=== PATIENT | female | born 1975 ===

== ENCOUNTER 2019-12-16 08:02 | Outpatient (REF) | payer OTHER, SELFPAY ==
--- NOTE | 2019-12-16 | US_ITS ---
EXAMINATION: US THYROID CLINICAL INFORMATION: Multinodular goiter. COMPARISON: Ultrasound thyroid soft tissue dated 11/12/2018 TECHNIQUE: Linear transducer barry-scale and color Doppler examination with attention to the region of the thyroid. FINDINGS: SIZE: Measurements of the thyroid lobes and nodules are given in sagittal, anteroposterior and transverse dimensions respectively. Right Thyroid Lobe: 5.6 x 2.2 x 2.0 cm, volume 12.5 mL. Previously 5.4 x 2.3 x 2.2 cm, volume 14.3 mL. Parenchyma: The gland echotexture is homogeneous. Thyroid vascularity is normal. Left Thyroid Lobe: 5.7 x 1.8 x 2.3 cm, volume 12.7 mL. Previously 5.7 x 2.1 x 2.5 cm, volume 15.7 mL. Parenchyma: The gland echotexture is homogeneous. Thyroid vascularity is normal. Isthmus: 0.6 cm in maximum AP dimension. Previously 0.60 cm. RIGHT THYROID LOBE: There are 3 nodules seen. 1. Location: Upper. Size: 0.2 x 0.1 x 0.2 cm. Previous: Not seen. Nodule characteristics: Cyst. 2. Location: Upper. Size: 0.3 x 0.3 x 0.3 cm. Previous: 0.4 x 0.3 x 0.3 cm. Nodule characteristics: Mild hypoechoic, ill-defined margins, no color flow. 3. Location: Upper to mid medial. Size: 0.5 x 0.3 x 0.4 cm. Previous: 0.5 x 0.3 x 0.4 cm. Nodule characteristics: Isoechoic/mild hypoechoic, no definite color flow. ISTHMUS: No nodules. LEFT THYROID LOBE: There are 2 nodules seen. 1. Location: Mid. Size: 0.2 x 0.1 x 0.2 cm. Previous: Not seen. Nodule characteristics: Cyst. 2. Location: Lower. Size: 0.2 x 0.2 x 0.2 cm. Previous: Not seen. Nodule characteristics: Mild hypoechoic, circumscribed, no color flow. NODES: No lymphadenopathy is seen in the tissue surrounding the thyroid gland. IMPRESSION: 1. Thyroid normal in size, borderline decreased in size from prior exam 11/12/2018. 2. A few scattered tiny benign-appearing nodules all under 1 cm. No adenopathy demonstrated.
== END 2019-12-16 08:03 | disposition home or self-care (01) ==
LOC: HO.US 08:02
PROVIDERS: PCP Internal Medicine; Visit Provider Internal Medicine
DX: E04.2 Nontoxic multinodular goiter (principal)
CPT/HCPCS: 76536

== ENCOUNTER 2020-04-23 07:18 | Outpatient (REF) | payer OTHER, SELFPAY ==
[2020-04-23 11:10] LABS: MANUAL DIFF FLAG NO
[2020-04-23 11:25] LABS: Basophils Percent Auto 0.7 % (0-2); Eosinophils Absolute Auto 0.1 X10*3/uL (0.0-0.4); Eosinophils Percent Auto 1.7 % (0-4); Hematocrit 39.7 % (37-47); Hemoglobin 12.9 g/dl (12.0-16.0); Imm Gran Abs Auto 0.01 X10*3/uL (0.00-0.03); Imm Gran Pct Auto 0.2 % (0.0-0.4); Lymphocytes Absolute Auto 1.6 X10*3/uL (1.2-4.9); Lymphocytes Percent Auto 26.7 % (20-40); Mean Corpuscular HGB Conc 32.5 g/dl (31.0-35.0); Mean Corpuscular Hemoglobin 29.3 pg (27.0-33.0); Mean Corpuscular Volume 90.2 fL (80-98); Mean Platelet Volume 11.8 fL (9.4-12.3); Monocytes Absolute Auto 0.5 X10*3/uL (0.1-1.2); Monocytes Percent Auto 8.2 % (2-11); Neutrophils Absolute Auto 3.7 X10*3/uL (2.0-8.3); Neutrophils Percent Auto 62.5 % (45-73); Platelet Count 238 X10*3/uL (160-400); Red Cell Distribution Width 11.9 % (11.0-16.0); White Blood Count 5.9 X10*3/uL (4.8-10.8)
[2020-04-23 12:06] LABS: Anion Gap 12 (12-20); Blood Urea Nitrogen 14 mg/dL (9-16); Calcium 8.5 mg/dL (8.4-10.2); Carbon Dioxide 26 mmol/L (22-29); Chloride 106 mmol/L (96-108); Cholesterol 180 mg/dL; Estimated Glomerular Filt Rate > 60; Glucose Fasting 96 mg/dL (60-99); HDL Cholesterol 43 mg/dL; LDL Cholesterol Calculated 101 mg/dl; Potassium 3.9 mmol/L (3.3-5.1); Sodium 140 mmol/L (135-145); Triglycerides 180 mg/dL
[2020-04-23 12:10] LABS: Free T4 (Free Thyroxine) 1.12 ng/dL (0.71-1.85); Thyroid Stimulating Hormone 0.45 uIU/mL (0.32-4.0); Vitamin D 25-OH Total 18.2 ng/mL (>30)
== END 2020-04-23 07:19 | disposition home or self-care (01) ==
LOC: HO.HMGCLDS 07:18
PROVIDERS: PCP Internal Medicine; Visit Provider Internal Medicine
DX: Z00.01 Encounter for general adult medical examination with abnormal findings (principal); I10 Essential (primary) hypertension; E04.2 Nontoxic multinodular goiter; E03.9 Hypothyroidism, unspecified; E55.9 Vitamin D deficiency, unspecified
CPT/HCPCS: 36415; 80048; 80061; 82306; 84439; 84443; 85025

== ENCOUNTER → 2020-05-17 07:53 | Outpatient (BNVA) | payer OTHER, SELFPAY | PROVIDERS: PCP Internal Medicine; Referring Provider Internal Medicine; Visit Provider Internal Medicine ==

== ENCOUNTER 2020-10-29 07:45 | Outpatient (REF) | payer OTHER, SELFPAY ==
[2020-10-29 12:04] LABS: Thyroid Stimulating Hormone 0.97 uIU/mL (0.32-4.0)
== END 2020-10-29 07:46 | disposition home or self-care (01) ==
LOC: HO.HMGCLDS 07:45
PROVIDERS: PCP Internal Medicine; Visit Provider Internal Medicine
DX: E03.9 Hypothyroidism, unspecified (principal); E04.2 Nontoxic multinodular goiter; E55.9 Vitamin D deficiency, unspecified
CPT/HCPCS: 36415; 82306; 84439; 84443

== ENCOUNTER → 2020-11-15 07:50 | Outpatient (BNVA) | payer OTHER, SELFPAY | PROVIDERS: PCP Internal Medicine; Visit Provider Internal Medicine ==

== ENCOUNTER 2021-04-13 10:00 | Outpatient (RCR) | payer OTHER, SELFPAY ==
[2021-01-28 14:09] VITALS: BP 134/74
--- NOTE | 2021-01-28 15:43 | MHC.PT.EP ---
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 Pt has severe rom limitations in left sh/ apprehensive w arom in distal left ue due to pain in left subacromial/ deltoid/parascap mm. At IE today, unable to perform special tests for her shoulder, her cervical rom was wfl and did not influence her left UE sxs- Pt has strength deficits left ue , decr postural awareness, and pain w light touch, palp altough sensation testing was intact. Pt will benefit from a trial of PT to address pain mgmt, soft tissue tension, rom, and funct mob sushma. Frequency and Duration: The patient will be seen 2 x WK x 5 WKS Short Term Goals: Pt'S LEFT SH PAIN DECR TO 2-3/10 IN 2 WKS Pt DEMON INDEP SELF-POSTURAL CORRECTION IN 1 WK Pt DEMON LEFT UE AROM: WFL ELB/ WRIST AROM AND Lt SH AROM TO AT LEAST 90* FLEX/ ABD, IR TO L4/5, ER TOP OF HEAD IN 3 WKS Operations And Maintenance Specialist Goals: Pt INDEP W HEP AND SELF-SX MGMT TECHN IN 5 WKS Pt DEMON RETURN TO REG ADLs , IMPROVED SPADI SCORE BY AT LEAST (124/130 AT EVAL)10 POINTS IN 5 WKS Treatment Plan: Modalities to reduce pain, spasms and effusion. Manual therapy to restore motion and function. Therapeutic exercise to improve strength and flexibility. Neuromuscular re-education for posture and balance. Therapeutic activities to return to functional activities of daily living. Electronically signed by: Mellissa Nieto,PT Please sign and return to therapist. Thank you for your referral.
--- NOTE | 2021-06-09 14:24 | MHC.PT.DC ---
[facility] [place] Office [place] Office [place] Office [address] [facility] [phone] F: [phone] F: [phone] F: [phone] F: [phone] Physical Therapy Discharge Report Diagnosis: PAIN IN LEFT SHOULDER Date of Surgery: N/A Date of Evaluation: 01/28/21 Date of Discharge: 06/09/21 Treatments to Date: 17 Cancellations to Date: No Shows to Date: Discharge Status: Achieved Goals Improved Function Independent with HEP Discharge Summary: Pt PROGRESSED WELL IN PT, SHE MET HER PT GOALS AND FEELS READY FOR D/C W HEP AT THIS TIME. Pt HAS BEEN ABLE TO RESUME REGULAR ADLs AND DEMON IMPROVED POSTURAL AWARENESS AND SELF CORRECTION. Electronically signed by: Mellissa Nieto,PT Please sign and return to therapist. Thank you for your referral.
== END 2021-06-09 14:22 | disposition home or self-care (01) ==
LOC: HO.PT 10:00
PROVIDERS: PCP Internal Medicine; Visit Provider Internal Medicine
DX: M25.512 Pain in left shoulder (principal)
CPT/HCPCS: 97110; 97140; 97163; 97530

== ENCOUNTER 2021-04-21 09:55 | Outpatient (REF) | payer OTHER, SELFPAY ==
[2021-04-21 11:22] LABS: MANUAL DIFF FLAG NO
[2021-04-21 11:29] LABS: Basophils Percent Auto 0.7 % (0-2); Eosinophils Absolute Auto 0.1 X10*3/uL (0.0-0.4); Eosinophils Percent Auto 1.4 % (0-4); Hematocrit 41.6 % (37.0-47.0); Hemoglobin 13.3 g/dl (12.0-16.0); Imm Gran Abs Auto 0.02 X10*3/uL (0.00-0.03); Imm Gran Pct Auto 0.3 % (0.0-0.4); Lymphocytes Absolute Auto 1.8 X10*3/uL (1.2-4.9); Lymphocytes Percent Auto 31.9 % (20-40); Mean Corpuscular Hemoglobin 28.2 pg (27.0-33.0); Mean Corpuscular Volume 88.3 fL (80.0-98.0); Mean Platelet Volume 11.9 fL (9.4-12.3); Monocytes Absolute Auto 0.4 X10*3/uL (0.1-1.2); Monocytes Percent Auto 6.9 % (2-11); Neutrophils Absolute Auto 3.4 x10*3/uL (2.0-8.3); Neutrophils Percent Auto 58.8 % (45-73); Platelet Count 271 X10*3/uL (160-400); Red Blood Count 4.71 X10*6/uL (4.20-5.50); Red Cell Distribution Width 12.1 % (11.0-16.0); White Blood Count 5.8 X10*3/uL (4.8-10.8)
[2021-04-21 11:47] LABS: Alanine Aminotransferase 12 U/L (0-31); Anion Gap 10 (12-20); Aspartate Amino Transferase 17 U/L (5-31); Blood Urea Nitrogen 11 mg/dL (9-16); Calcium 8.9 mg/dL (8.4-10.2); Carbon Dioxide 26 mmol/L (22-29); Chloride 106 mmol/L (96-108); Cholesterol 200 mg/dL; Estimated Glomerular Filt Rate > 60; Glucose Fasting 91 mg/dL (60-99); HDL Cholesterol 48 mg/dL; LDL Cholesterol Calculated 122 mg/dl; Potassium 3.9 mmol/L (3.3-5.1); Sodium 138 mmol/L (135-145); Triglycerides 152 mg/dL
[2021-04-21 12:09] LABS: Vitamin D 25-OH Total 26.2 ng/mL (>30)
== END 2021-04-21 09:56 | disposition home or self-care (01) ==
LOC: HO.HMGCLDS 09:55
PROVIDERS: Visit Provider Internal Medicine
DX: Z00.01 Encounter for general adult medical examination with abnormal findings (principal)
CPT/HCPCS: 36415; 80048; 80061; 82306; 84450; 84460; 85025

== ENCOUNTER → 2021-06-10 08:15 | Outpatient (BNVA) | payer OTHER, SELFPAY | PROVIDERS: PCP Internal Medicine; Referring Provider Internal Medicine; Visit Provider Nurse Practitioner | DX: Z13.89 Encounter for screening for other disorder (principal) ==

== ENCOUNTER 2021-08-01 07:08 | Outpatient (REF) | payer OTHER, SELFPAY ==
[2021-08-01 12:04] LABS: Thyroid Stimulating Hormone 0.85 uIU/mL (0.32-4.0); Vitamin D 25-OH Total 59.1 ng/mL (>30)
== END 2021-08-01 07:09 | disposition home or self-care (01) ==
LOC: HO.HMGCLDS 07:08
PROVIDERS: PCP Internal Medicine; Visit Provider Internal Medicine
DX: E03.9 Hypothyroidism, unspecified (principal); E04.2 Nontoxic multinodular goiter; E55.9 Vitamin D deficiency, unspecified
CPT/HCPCS: 36415; 82306; 84439; 84443

== ENCOUNTER 2021-11-10 12:12 | Outpatient (REF) | payer OTHER, SELFPAY ==
[2021-11-10 14:11] LABS: Thyroid Stimulating Hormone 0.69 uIU/mL (0.32-4.0); Vitamin D 25-OH Total 31.4 ng/mL (>30)
== END 2021-11-10 12:13 | disposition home or self-care (01) ==
LOC: HO.10HDL 12:12
PROVIDERS: Visit Provider Internal Medicine
DX: E03.9 Hypothyroidism, unspecified (principal); E55.9 Vitamin D deficiency, unspecified
CPT/HCPCS: 36415; 82306; 84439; 84443

== ENCOUNTER 2021-11-25 09:16 | Day surgery (SDC) | payer OTHER, SELFPAY ==
--- NOTE | 2021-11-24 11:52 | P.CONAN_ITS ---
Documented by User: Sue Whyte NP 11/24/21 11:52 HPI - Anesthesia Eval Consult details Narrative: 46yo F for Colonoscopy PMFSH Active Problems Active Problems: All Active Problems (Updated 06/10/21 @ 09:51 by STEVEN Graves) Colon cancer screening (Acute) Vitamin D deficiency (Acute) Allergic rhinitis (Acute) Mild intermittent asthma (Acute) Multinodular goiter (Acute) Hypothyroidism (Acute) Past Medical History Medical History Allergic rhinitis Colon cancer screening History of mammogram History of Papanicolaou smear of cervix Hypothyroidism Mild intermittent asthma Multinodular goiter Pain in left shoulder Vitamin D deficiency Family History Family History Father HTN (hypertension) CVD (cardiovascular disease) Diabetes mellitus Mother Medical history non-contributory Paternal Uncle Esophageal cancer Brother No problems noted. Sister Ovarian cancer Sister No problems noted. Daughter No problems noted. Maternal Aunt Uterine cancer Surgical History Surgical History History of section Hx of LASIK Social History Social History Housing: House Alcohol intake: current Patient Tobacco Use Status: Never used Tobacco e-Cigarette/Vaping Use: Never Used Advance Directives: No Advance Directives Information Provided: Yes service: No Current occupational status: employed Cognitive needs: No Hearing needs: No Vision needs: No Meds Allergies Allergy/AdvReac Type Severity Reaction Status Date / Time gluten Allergy Unknown Stomach Verified 11/14/21 08:19 Upset Home Medications Medication Instructions Recorded Confirmed Last Taken Type cholecalciferol (vitamin D3) 50 50 mcg PO DAILY 04/19/20 11/22/21 Unknown History mcg (2,000 unit) capsule Exam Exam Date and Time: November 24, 2021 1152 Assessment and Plan Assessment Anesthesia Assessment: Chart Reviewed Documented by User: Theresa Hernandez MD 11/25/21 10:00 [facility] Past Medical History Medical History Allergic rhinitis Colon cancer screening History of mammogram History of Papanicolaou smear of cervix Hypothyroidism Mild intermittent asthma Multinodular goiter Pain in left shoulder Vitamin D deficiency Family History Family History Father HTN (hypertension) CVD (cardiovascular disease) Diabetes mellitus Mother Medical history non-contributory Paternal Uncle Esophageal cancer Brother No problems noted. Sister Ovarian cancer Sister No problems noted. Daughter No problems noted. Maternal Aunt Uterine cancer Family history of problems with anesthesia: No Surgical History Surgical History History of section Hx of LASIK History of Problems with Anesthesia: No Social History Social History Housing: House Alcohol intake: current Patient Tobacco Use Status: Never used Tobacco e-Cigarette/Vaping Use: Never Used Advance Directives: No Advance Directives Information Provided: Yes service: No Current occupational status: employed Cognitive needs: No Hearing needs: No Vision needs: No Meds Allergies Allergy/AdvReac Type Severity Reaction Status Date / Time gluten Allergy Unknown Stomach Verified 11/14/21 08:19 Upset Home Medications Medication Instructions Recorded Confirmed Last Taken Type cholecalciferol (vitamin D3) 50 50 mcg PO DAILY 04/19/20 11/22/21 Unknown History mcg (2,000 unit) capsule Exam Airway Mallampati Class: II TM Dist: >3cm Neck ROM: Full Heart: rrr Lungs: cta Assessment and Plan Assessment Anesthesia Assessment: Anesthesia Plan Discussed and Chart Reviewed Final Anesthetic Review Family History of Problems with Anesthesia: No History of Problems with Anesthesia: No NPO: Yes ASA Class: II Final Preanesthetic Review: No Changes in Pt Med Stat, Meds/Allgs Chart Reviewed and Consent Obtained/Reviewed Patient Risk: Intermediate Procedure Risk: Intermediate Anesthetic Plan Anesthetic Plan: MAC: Disposition: Standard PACU
[2021-11-25 09:56] VITALS: BMI 27.8
[2021-11-25 10:02] VITALS: BP 133/80; PULSE 85; RESP 16; TEMP 36.2; O2SAT 99
--- NOTE | 2021-11-25 10:04 | MHC.SHP ---
Pre-Procedural Eval Section A Date of Service: 11/25/21 The patient is an INPATIENT: No The History & Physical has been completed within 30 days and I have reviewed it.: No Section B Chief Complaint: screening Details of Present Illness: Colon cancer screening Relevant Family History (Specify if Yes): Yes Relevant Social History: None Present Medications: see Short Stay Collaborative assessment Medical History: Significant History (Allergic rhinitis Colon cancer screening History of mammogram History of Papanicolaou smear of cervix Hypothyroidism Mild intermittent asthma Multinodular goiter Pain in left shoulder Vitamin D deficiency) History of Previous Operations: Relevant previous surgery/procedure and date(s) (History of section Hx of LASIK) Allergies: Allergies Allergy/AdvReac Type Severity Reaction Status Date / Time gluten Allergy Unknown Stomach Verified 11/14/21 08:19 Upset Review of Systems Sugical H&P ROS: Negative: Constitution, Cardiovascular, Respiratory and Gastrointestinal Exam Surgical H&P Exam: Normal: Heart, Normal: Lungs, Normal: Extremities and Normal: Abdomen Plan Diagnosis/Plan: Unchanged I have reviewed the history and physical and performed a pertinent physical examination on my patient. No changes have occurred unless specified.
--- NOTE | 2021-11-25 10:10 | P.OP_ITS ---
Operative Note Operative Note Date of Service: 11/25/21 Narrative: Pre-op diagnosis: Colon cancer screening, family history of colon cancer (cousin in her 30's - doing well after surgery) Post-op diagnosis:?other (Diverticulosis, hemorrhoids) Procedure: COLONOSCOPY TILL CECUM Consent: Indications for the procedure and potential complications of bleeding, perforation, reaction to medications and missed diagnosis were discussed with the patient and informed consent was obtained. Instrument: Olympus PCF H 190 L variable stiffness pediatric colonoscope Monitoring: Vital signs and clinical assessment, intermittent blood pressure monitoring, continuous EKG monitoring, Pulse oximetry and Carbon Dioxide monitoring were done throughout the procedure. Colon withdrawl time was 13 minutes. Procedure: The patient was placed in the left lateral decubitis position and pre-procedure medications were administered. After a digital rectal examination of the ano-rectum, the video colonoscope was inserted into the rectum and advanced through the colon to the cecum. The colonoscope was slowly withdrawn in a retrograde panoramic fashion and the colon mucosa was carefully examined including a retroflexed view of the rectum. Findings and interventions are described below. Procedure Difficulty: Without difficulty Findings: Terminal Ileum: Not evaluated Cecum:? Normal Ascending Colon:? Normal Transverse Colon:? Normal Descending Colon:? Moderate diverticulosis Sigmoid Colon:? Moderate diverticulosis Rectum:? Normal Ano-rectum:? Moderate internal hemorrhoids Colon preparation:? Good after some irrigation and fair in the right colon due to scattered areas of adherent stool Impression and Post Procedure Diagnosis: Colonoscopy Findings: No polyps were detected Moderate diverticulosis seen in the left colon Moderate hemorrhoids on retroflexed exam. Plan: Patient has an appointment on 12/09/21 in the GI Clinic with? Miranda Akins NP - pt advised to cancel her appt since she is not having any GI symptoms and no biopsies were obtained. Repeat Colonoscopy interval based on path results - in 5 years due to positive family hx and fair prep in the right colon/ Above findings were reviewed with the patient and diverticulosis handout was given in the discharge area Surgeon: Valentín Lainez MD Anesthesia:?MAC Was an Document Management Consultant used for this Procedure?:?Yes Document Management Consultant:?Zion Justin Estimated blood loss (mL):?0 Pathology:?none sent Condition:?stable Disposition:?PACU
[2021-11-25 10:14] LABS: UPreg QC Valid YES; Urine Pregnancy NEGATIVE (NEGATIVE)
[2021-11-25] MEDS: Lactated Ringers 1,000 ML 100 ML IVCONT (10:20)
[2021-11-25 11:30] VITALS: BP 117/70; PULSE 94; RESP 16; TEMP 35.9; O2SAT 96
[2021-11-25 11:45] VITALS: BP 136/85; PULSE 86; RESP 14; TEMP 36.3; O2SAT 99
== END 2021-11-25 12:30 | disposition home or self-care (01) ==
PROVIDERS: Nurse Practitioner; PCP Internal Medicine; Visit Provider Internal Medicine Gastroenterology
PROC: 0DJD8ZZ Inspection of Lower Intestinal Tract, Via Natural or Artificial Opening Endoscopic (ICD-10-PCS; CPT 45378; principal; 2021-11-25 11:00)
DX: Z12.11 Encounter for screening for malignant neoplasm of colon (principal); K57.30 Diverticulosis of large intestine without perforation or abscess without bleeding; K64.8 Other hemorrhoids; J45.20 Mild intermittent asthma, uncomplicated; E03.9 Hypothyroidism, unspecified; E04.2 Nontoxic multinodular goiter; E55.9 Vitamin D deficiency, unspecified; Z79.899 Other long term (current) drug therapy
CPT/HCPCS: 45378; 81025

== ENCOUNTER 2022-04-24 08:54 | Outpatient (REF) | payer OTHER, SELFPAY ==
[2022-04-24 12:36] LABS: Cholesterol 193 mg/dL; Glucose Fasting 106 mg/dL (60-99); HDL Cholesterol 39 mg/dL; LDL Cholesterol Calculated 90 mg/dl; Triglycerides 324 mg/dL
[2022-04-24 12:54] LABS: Vitamin D 25-OH Total 28.2 ng/mL (>30)
== END 2022-04-24 08:55 | disposition home or self-care (01) ==
LOC: HO.HMGCLDS 08:54
PROVIDERS: PCP Internal Medicine; Visit Provider Internal Medicine
DX: Z00.01 Encounter for general adult medical examination with abnormal findings (principal); E03.9 Hypothyroidism, unspecified; J45.20 Mild intermittent asthma, uncomplicated; R07.9 Chest pain, unspecified; E55.9 Vitamin D deficiency, unspecified
CPT/HCPCS: 36415; 80061; 82306; 82947

== ENCOUNTER → 2022-05-04 10:14 | Outpatient (REF) | payer OTHER, SELFPAY ==
--- NOTE | 2022-05-04 10:45 | CA_ITS ---
Acquisition Time: 2022-05-04 10:52:49 Total Exercise Time: 00:06:50 Test Indications: CP, SOB Medications: SEE H Protocol: ERIKA Max HR: 176 BPM 102% of Pred: 172 BPM Max BP: 170/068 mmHG Max Work Load: 8.2 METS Exercise stress test with exercise 6 min 50 sec of Erika protocol achieving 102% MPHR with mild SOB, no chest discomfort, without arrythmias, with normotensive response to exercise, without EKG changes meeting criteria for ischemia. Test reviewed with Dr. Platt. Referred By: Sulma Plaza Overread By: WING GREENWOOD
== END ==
LOC: HO.CARD 10:14
PROVIDERS: Visit Provider Internal Medicine
DX: R07.9 Chest pain, unspecified (principal)
CPT/HCPCS: 93017

== ENCOUNTER 2023-03-29 06:52 | Outpatient (REF) | payer OTHER, SELFPAY ==
[2023-03-29 12:13] LABS: Free T4 (Free Thyroxine) 1.18 ng/dL (0.71-1.85); Thyroid Stimulating Hormone 0.55 uIU/mL (0.32-4.0)
== END 2023-03-29 06:53 | disposition home or self-care (01) ==
LOC: HO.HMGCLDS 06:52
PROVIDERS: PCP Internal Medicine; Visit Provider Internal Medicine Endocrinology, Diabetes & Metabolism
DX: E03.9 Hypothyroidism, unspecified (principal); E04.2 Nontoxic multinodular goiter
CPT/HCPCS: 36415; 84439; 84443

== ENCOUNTER 2023-04-03 13:08 | Outpatient (AMB) | payer SELFPAY ==
[2023-04-03 13:10] VITALS: BP 108/66; PULSE 88; BMI 26.0
--- NOTE | 2023-04-03 13:10 | MHC.OFFVIS ---
Intake Vital Signs 04/03/23 13:10 Height 5 ft 3 in Weight 146 lb 9.718 oz BMI 26.0 BP 108/66 Blood Pressure Location Lt brachial Position Sitting Pulse 88 Pulse Source Pulse Oximeter Intake Visit Reasons: F/U Hypothyroidism-confirmed Intake Note: Patient presents today for Hypothyroidism follow up, last seen by Dr. Mead on 11/14/2021. Communications Project Lead Required: No Accompanied by: Self / Same As Patient Allergies gluten Allergy (Unknown, Verified 04/03/23 13:16) Stomach Upset Medication List - Last Reconciled 04/03/23 by Mich Parnell MD albuterol sulfate 90 mcg/actuation (ProAir HFA) 2 puffs inhalation Q6H PRN cholecalciferol (vitamin D3) 50 mcg PO DAILY levothyroxine 50 mcg PO DAILY 30 days tirzepatide (Mounjaro) 5 mg subcut QWEEK HPI HPI Comments History of Present Illness Details 47 YO F with PMHx Hypothyroidism who is seen in F/U for hypothyroidism, Multinodular thyroid and Vitamin D deficiency. The patient last saw Dr. Mead on 11/14/2021 Patient has a longstanding history of hypothyroidism and was on low dose Levothyroxine. She then in early 2018 began experiencing swelling and tenderness in her neck. She discussed this with her PCP, who increased her dose of Levothyroxine to 88 mcg PO daily. She had TSH checked 11/04/18 with TSH 0.05. We subsequently decreased her Levothyroxine dose to 50 mcg PO daily, which she has been taking daily ever since. TSH subsequently normalized to 1.0 01/22/2019 and her energy level improved. She continues now on Levothyroxine 50 mcg PO daily. She reports good compliance with this. TFTs at goal. She has what was read as a multinodular thyroid, but these are in fact pseudonodules, and not true nodules. She denies any significant symptoms of hyper or hypothyroidism. Denies any family history of thyroid cancer. Thyroid US: 12/16/2019 Right Thyroid Lobe: 5.6 x 2.2 x 2.0 cm, volume 12.5 mL. Previously 5.4 x 2.3 x 2.2 cm, volume 14.3 mL. Parenchyma: The gland echotexture is homogeneous. Thyroid vascularity is normal. Left Thyroid Lobe: 5.7 x 1.8 x 2.3 cm, volume 12.7 mL. Previously 5.7 x 2.1 x 2.5 cm, volume 15.7 mL. Parenchyma: The gland echotexture is homogeneous. Thyroid vascularity is normal. Isthmus: 0.6 cm in maximum AP dimension. Previously 0.60 cm. RIGHT THYROID LOBE: There are 3 nodules seen. 1. Location: Upper. Size: 0.2 x 0.1 x 0.2 cm. Previous: Not seen. Nodule characteristics: Cyst. 2. Location: Upper. Size: 0.3 x 0.3 x 0.3 cm. Previous: 0.4 x 0.3 x 0.3 cm. Nodule characteristics: Mild hypoechoic, ill-defined margins, no color flow. 3. Location: Upper to mid medial. Size: 0.5 x 0.3 x 0.4 cm. Previous: 0.5 x 0.3 x 0.4 cm. Nodule characteristics: Isoechoic/mild hypoechoic, no definite color flow. ISTHMUS: No nodules. LEFT THYROID LOBE: There are 2 nodules seen. 1. Location: Mid. Size: 0.2 x 0.1 x 0.2 cm. Previous: Not seen. Nodule characteristics: Cyst. 2. Location: Lower. Size: 0.2 x 0.2 x 0.2 cm. Previous: Not seen. Nodule characteristics: Mild hypoechoic, circumscribed, no color flow. NODES: No lymphadenopathy is seen in the tissue surrounding the thyroid gland. Labs: Laboratory Tests 10/29/20 07:55 25-OH Vitamin D To marquez 29.0 TSH 0.97 Free T4 1.10 PFSH Medical History (Updated 03/05/23 @ 05:58 by Sulma Plaza MD) Shoulder pain, right Colon cancer screening Pain in left shoulder Vitamin D deficiency Allergic rhinitis Mild intermittent asthma History of mammogram History of Papanicolaou smear of cervix Multinodular goiter Hypothyroidism Surgical History Hx of colonoscopy Hx of LASIK History of section Family History (Updated 04/24/22 @ 08:56 by Sulma Plaza MD) Father HTN (hypertension) CVD (cardiovascular disease) Diabetes mellitus Mother Medical history non-contributory Paternal Uncle Esophageal cancer Brother No problems noted. Sister Ovarian cancer Sister No problems noted. Daughter No problems noted. Maternal Aunt Uterine cancer CVD (cardiovascular disease) Social History Housing: House Alcohol intake: current Alcohol intake frequency: holidays/special occasions only Patient Tobacco Use Status: Never used Tobacco e-Cigarette/Vaping Use: Never Used Second Hand Smoke Exposure: No service: No Current occupational status: employed Current occupation: [employer] Current occupational exposures/hazards: No Cognitive needs: No Hearing needs: No Vision needs: No Physical Exam Vital Signs: Last Vital Signs Pulse 88 04/03/23 13:10 BP 108/66 04/03/23 13:10 BMI result Body Mass Index 26.0 Const Other: Thyroid gland is enlarged in size weighs about 25 g. 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 She is currently replaced on 50 mcg levothyroxine. She appears to be clinically and biochemically euthyroid Plan is to continue the current therapy. At this point, patient returned to the care of her primary care provider and returned back to endocrinology as needed. Ultrasound was performed by Dr. Mead previously the patient was found to have pseudo nodules therefore no need for repeat thyroid ultrasound Coding Level of Care Code Est Pt Level 3 (30121) Diagnoses Acquired hypothyroidism E03.9 Hypothyroidism type: acquired
== END 2023-04-03 13:25 | disposition home or self-care (01) ==
PROVIDERS: PCP Internal Medicine; Visit Provider Internal Medicine Endocrinology, Diabetes & Metabolism
DX: E03.9 Hypothyroidism, unspecified (principal)
CPT/HCPCS: 99213

== ENCOUNTER → 2023-04-03 13:08 | Outpatient (BNVA) | payer OTHER, SELFPAY | PROVIDERS: PCP Internal Medicine; Visit Provider Internal Medicine Endocrinology, Diabetes & Metabolism ==

== ENCOUNTER 2023-05-01 08:00 | Outpatient (AMB) | payer SELFPAY ==
--- NOTE | 2023-05-01 08:10 | MHC.PC.OV ---
Vital Signs 05/01/23 08:11 Height 5 ft 3 in Weight 146 lb BMI 25.9 BP 106/68 Blood Pressure Location Lt brachial Position Sitting Pulse 85 Pulse Source Pulse Oximeter Pulse Oximetry (%) 100 Oxygen Delivery Method Room Air Intake Visit Reasons: PE Intake Note: Pt is here today for PE. 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 Allergies gluten Allergy (Unknown, Verified 05/01/23 08:20) Stomach Upset Medication List - Last Reconciled 05/01/23 by Sulma Plaza MD albuterol sulfate 90 mcg/actuation (ProAir HFA) 2 puffs inhalation Q6H PRN cholecalciferol (vitamin D3) 50 mcg PO DAILY levothyroxine 50 mcg PO DAILY 30 days tirzepatide (Mounjaro) 5 mg subcut QWEEK Tobacco use date assessed: 05/01/23 Dental Screening Dental Screen Date: 05/01/23 Did you have a dental visit in the last 12 months?: Yes Did you have a dental problem in the last 6 months where you did not have access to dental care?: No Was dental information given to patient?: Patient has dentist HPI PE HPI Details 47-year-old lady with Gene's thyroiditis with subsequent hypothyroidism, currently controlled on levothyroxine 50 mcg taken once a day. 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 She is up-to-date with her screening mammogram, had her Pap smear done last month in [place] with Dr. Reena magana, and had a normal colonoscopy done by Dr. Lainez in 2021. She has been seen at the [facility] and was placed on Mounjaro September 2022, with good results, has lost approximately 20 lbs, and states that she has been feeling much better, more energy and heartburn symptoms have resolved. She however has been having pain in her right shoulder, since September of last year, no history of any fall or trauma. Has been going to physical therapy for the last 9 weeks now with no improvement, unable to raise right arm more than 90 degrees and unable to extended backwards or forwards. [facility] Medical History (Updated 05/01/23 @ 09:03 by Sulma Plaza MD) Impaired fasting glucose Gene's thyroiditis Hypertriglyceridemia Chronic right shoulder pain Shoulder pain, right Colon cancer screening Pain in left shoulder Vitamin D deficiency Allergic rhinitis History of mammogram History of Papanicolaou smear of cervix Hypothyroidism Surgical History Hx of colonoscopy Hx of LASIK History of section Family History Father HTN (hypertension) CVD (cardiovascular disease) Diabetes mellitus Mother Medical history non-contributory Paternal Uncle Esophageal cancer Brother No problems noted. Sister Ovarian cancer Sister No problems noted. Daughter No problems noted. Maternal Aunt Uterine cancer CVD (cardiovascular disease) Social History Housing: House Alcohol intake: current Alcohol intake frequency: holidays/special occasions only Patient Tobacco Use Status: Never used Tobacco e-Cigarette/Vaping Use: Never Used Second Hand Smoke Exposure: No service: No Current occupational status: employed Current occupation: [employer] Current occupational exposures/hazards: No Cognitive needs: No Hearing needs: No Vision needs: No Questionnaire PHQ-9 Over the last 2 weeks, how often have you been bothered by any of the following problems? 1. Little interest or pleasure in doing things: not at all 2. Feeling down, depressed, or hopeless: not at all 3. Trouble falling or staying asleep, or sleeping too much: several days 4. Feeling tired or having little energy: not at all 5. Poor appetite or overeating: not at all 6. Feeling bad about yourself - or that you are a failure or have let yourself or your family down: not at all 7. Trouble concentrating on things, such as reading the newspaper or watching television: several days 8. Moving or speaking so slowly that other people could have noticed. Or the opposite - being so fidgety or restless that you have been moving around a lot more than usual: not at all 9. Thoughts that you would be better off or of hurting yourself in some way: not at all Total score: 2 Depression Screening Interpretation: Negative Depression Screening Done: Yes 14331 - PHQ-9 Billing: Yes Source: Developed by Drs. Mich Borrero, Mine Cool, Neal Lazar and colleagues, with an educational nitza from [employer]. Thrive Questionnaire Date Thrive assessed: 05/01/23 I am a: Patient What is your living situation today?: I have a steady place to live Within the past 12 months, did the food you bought not last and you didn't have the money to get more?: Never true Within the past 12 months, did you worry whether your food would run out before you got money to buy more?: Never true Do you have trouble paying for medicines?: No Do you have trouble getting transportation to medical appointments?: No Do you have trouble paying your heating and electricity bill?: No Do you have trouble taking care of your child, family member or friend?: No Do you have trouble with day-to-day activities such as bathing, preparing meals, shopping, managing finances, etc.?: No Are you currently unemployed and looking for a job?: No Are you interested in more education?: No Please select the resources that you would like help with: None THRIVE Score: 0 AUDIT C Alcohol Use Questionnaire (AUDIT-C) 1. How often do you have a drink containing alcohol?: Monthly or less 2. How many drinks containing alcohol do you have on a typical day when you are drinking?: 1 or 2 3. How often do you have six or more drinks on one occasion?: Never Total Score: 1 GRAY-7 AMB Questionnaire GRAY-7 Date GRAY - 7 assessed: 05/01/23 Feeling nervous, anxious, or on edge: 1 = Several days Not being able to stop or control worryin = Not at all Worrying too much about different things: 1 = Several days Trouble relaxin = Several days Being so restless that it is hard to sit still: 0 = Not at all Becoming easily annoyed or irritable: 1 = Several days Feeling afraid as if something awful might happen: 0 = Not at all Total GRAY-7 score (0-4 normal; 5-9 mild; 10-14 moderate; 15-21 severe): 4 Source: Developed by Mine Duarte, Neal Lazar and colleagues, with an educational nitza from [employer]. GRAY-7 Assessment Billing GRAY-7 Assessment Tool: GRAY-7 Assessment 88522 Review of Systems Const Denies fatigue, Denies fever(s), Denies headache(s) and Denies weakness Eyes Details: Now needing to wear reading glasses to read, sees Dr. Shay Reports change in vision and Denies eye discharge ENT Denies dizziness, Denies headache(s), Denies nasal discharge, Denies sinus pain and Denies sore throat Card Denies chest pain, Denies lightheadedness, Denies palpitations and Denies dyspnea Resp Denies chest congestion, Denies cough, Denies dyspnea and Denies wheezing GI Denies abdominal pain, Denies change in bowel habits and Denies heartburn Reports abnormal menses (Skipping months), Denies urinary frequency, Reports hot flashes, Denies dysuria, Reports urinary incontinence (Occasional leakage with cough) and Denies urinary urgency Musc Reports as per HPI and Denies muscle weakness Skin/Breast Denies breast swelling, Denies breast pain, Denies breast mass, Denies lesions and Denies rash Neuro Denies dizziness, Denies headache(s) and Denies weakness Psych Reports no additional complaints Endo Denies fatigue, Denies polydipsia, Denies polyuria and Denies palpitations Hector/Lymph Denies easy bruising Aller/Immun Denies seasonal rhinorrhea and Denies wheezing Physical exam (Primary Care) Vital Signs: Last Vital Signs Pulse 85 05/01/23 08:11 BP 106/68 05/01/23 08:11 Pulse Ox 100 05/01/23 08:11 Oxygen Delivery Method Room Air 05/01/23 08:11 BMI result Body Mass Index 25.9 Tobacco/Smoking Status: Tobacco use Status Tobacco use date assessed 05/01/23 05/01/23 08:16 Patient Tobacco Use Status Never used Tobacco 05/01/23 08:16 e-Cigarette/Vaping Use Never Used 05/01/23 08:16 PHQ-9: PHQ-9 Score PHQ-9: Total score 6 05/01/23 08:39 Depression Screening Interpretation: Negative Thrive Assessment: Date of Thrive Assessment Date Thrive assessed 05/01/23 05/01/23 08:16 Advance Care Planning discussion: Exists, not on file Const General: cooperative, healthy appearing, comfortable, no acute distress and alert Orientation/consciousness: patient oriented x3 HENMT Head: Yes normocephalic and Yes atraumatic Ears: hearing grossly normal bilaterally, TM's normal bilaterally and EAC's normal General nose exam: Normal external nose present and No nasal discharge present Face and sinus: Yes face symmetric Mouth: Normal oral and palatal mucosa present Throat: Yes posterior oropharynx normal Eyes General: appearance normal, both eyes and all related structures Neck Neck: Yes full ROM, Yes no lymphadenopathy and Yes supple Chest Chest palpation & inspection: normal inspection of the chest Breast/axilla palpation: normal palpation of the breasts Resp Effort & Inspection: normal respiratory effort and able to speak in complete sentences Auscultation: clear to auscultation bilaterally Cardio Palpation: normal PMI Rate: regular rate Rhythm: regular rhythm Heart sounds: S1 normal heart sound present and S2 normal heart sound present Bruits: no abdominal aortic bruits GI Inspection: Yes normal to inspection Palpation (GI): No Abdominal aortic bruit present, Soft to palpation, nontender, no guarding and no masses Auscultation: normal bowel sounds General: Yes no CVA tenderness and Yes deferred ( goes to her own OBGYN ) Back/Spine/Pelvis Back: no CVA tenderness and No back tenderness Skin General skin exam: no rashes or lesions noted Neuro General: patient oriented x3, gait normal, tone normal, moves all extremities, Normal light touch and pain sensation, no focal motor deficits and CN's II-XI intact bilaterally Extrem Other: Decreased range of motion of right shoulder joint due to pain, slight tenderness on palpation over right AC joint General: Yes full ROM, Yes no joint enlargement, Yes no pedal edema, Yes no calf tenderness and Yes normal gait Psych Appearance: grossly normal Mental Status: mental status grossly normal Speech and movement: Normal speech and movement present Affect: normal affect Attitude: cooperative Thought content: Normal thought content present Results Reviewed Results Reviewed: Laboratory Tests 03/29/23 07:10 TSH 0.55 Free T4 1.18 Assessment and Plan Assessment & Plan (1) Annual visit for general adult medical examination with abnormal findings: Code(s): Z00.01 - Encounter for general adult medical examination with abnormal findings Plan: Will check appropriate labs. Recommended dental visit every 6 months and regular eye exams, sees Dr. Shay Take adequate calcium in diet and vitamin-D 3 at 2000 IU per cap once a day, in addition to weight-bearing exercises to help maintain good muscle tone and weight control. Instructed to do self-breast exam, and continue yearly mammogram, up-to-date with her cervical cancer screening, sees Dr. Reena Fragoso. . Up-to-date with her screening colonoscopy done by Dr. Lainez. Has had COVID vaccines but does not want to get a booster nor does she want to get a flu shot, up-to-date with her Tdap (2) Chronic right shoulder pain: Code(s): M25.511 - Pain in right shoulder; G89.29 - Other chronic pain Plan: Referred to orthopedics for further evaluation and management, no improvement with physical therapy (3) Hypothyroidism: Code(s): E03.9 - Hypothyroidism, unspecified Qualifiers: Hypothyroidism type: acquired Qualified Code(s): E03.9 - Hypothyroidism, unspecified Plan: Controlled on levothyroxine 50 mcg taken once a day in a.m. recent TFT within normal, recheck TFTs again in six-month (4) Gene's thyroiditis: Code(s): E06.3 - Autoimmune thyroiditis Plan: Stable and controlled on levothyroxine 50 mcg taken once a day in a.m. recent TFTs are within normal, recheck thyroid function test again in six-month (5) Hypertriglyceridemia: Code(s): E78.1 - Pure hyperglyceridemia Plan: Fasting lipid panel ordered, continue with adherence to healthy eating habits and regular exercise avoid a lot of processed foods and fast food (6) Vitamin D deficiency: Code(s): E55.9 - Vitamin D deficiency, unspecified Plan: Repeat another vitamin-D level (7) Impaired fasting glucose: Code(s): R73.01 - Impaired fasting glucose Plan: Has been takingMounjaro l 5 mg every other week with weight now at goal, was being seen at [facility] continue with adherence to healthy eating habits and regular exercise. Orders: Orders Alanine Aminotransferase Today E03.9 - Hypothyroidism, unspecified, E06.3 - Autoimmune thyroiditis, E55.9 - Vitamin D deficiency, unspecified, E78.1 - Pure hyperglyceridemia, Z00.01 - Encounter for general adult medical examination with abnormal findings Basic Metabolic Panel Fasting Today E03.9 - Hypothyroidism, unspecified, E06.3 - Autoimmune thyroiditis, E55.9 - Vitamin D deficiency, unspecified, E78.1 - Pure hyperglyceridemia, Z00.01 - Encounter for general adult medical examination with abnormal findings Hemoglobin A1c Today E03.9 - Hypothyroidism, unspecified, E06.3 - Autoimmune thyroiditis, E55.9 - Vitamin D deficiency, unspecified, E78.1 - Pure hyperglyceridemia, Z00.01 - Encounter for general adult medical examination with abnormal findings Lipid Panel Today E03.9 - Hypothyroidism, unspecified, E06.3 - Autoimmune thyroiditis, E55.9 - Vitamin D deficiency, unspecified, E78.1 - Pure hyperglyceridemia, Z00.01 - Encounter for general adult medical examination with abnormal findings Thyroid Stimulating Hormone 6 Months E03.9 - Hypothyroidism, unspecified, E06.3 - Autoimmune thyroiditis Aspartate Amino Transferase Today E03.9 - Hypothyroidism, unspecified, E06.3 - Autoimmune thyroiditis, E55.9 - Vitamin D deficiency, unspecified, E78.1 - Pure hyperglyceridemia, Z00.01 - Encounter for general adult medical examination with abnormal findings Vitamin D 25-OH Total Today E03.9 - Hypothyroidism, unspecified, E06.3 - Autoimmune thyroiditis, E55.9 - Vitamin D deficiency, unspecified, E78.1 - Pure hyperglyceridemia, Z00.01 - Encounter for general adult medical examination with abnormal findings Thyroid Peroxidase Antibodies 6 Months E03.9 - Hypothyroidism, unspecified, E06.3 - Autoimmune thyroiditis Free T4 (Free Thyroxine) 6 Months E03.9 - Hypothyroidism, unspecified, E06.3 - Autoimmune thyroiditis Referrals Orthopedics Referral G89.29 - Other chronic pain, M25.511 - Pain in right shoulder Coding Level of Care Code Est Pt Prev Care 40-64y(44374) Diagnoses Annual visit for general adult medical examination with abnormal findings Z00.01 Chronic right shoulder pain M25.511; G89.29 Acquired hypothyroidism E03.9 Hypothyroidism type: acquired Gene's thyroiditis E06.3 Hypertriglyceridemia E78.1 Vitamin D deficiency E55.9 Impaired fasting glucose R73.01 Additional Codes GRAY-7 Assessment Billing - GRAY-7 Assessment Tool: GRAY-7 Assessment 29293 ([id number]) Vital Signs *Quality* - Advance Care Planning discussion: Exists, not on file ([id number])
[2023-05-01 08:11] VITALS: BP 106/68; PULSE 85; O2SAT 100; BMI 25.9
== END 2023-05-01 14:03 | disposition home or self-care (01) ==
PROVIDERS: Visit Provider Internal Medicine
DX: Z00.00 Encounter for general adult medical examination without abnormal findings (principal); M25.511 Pain in right shoulder; G89.29 Other chronic pain; E03.9 Hypothyroidism, unspecified; E06.3 Autoimmune thyroiditis; E78.1 Pure hyperglyceridemia; E55.9 Vitamin D deficiency, unspecified; R73.01 Impaired fasting glucose
CPT/HCPCS: 1123F; 99396

== ENCOUNTER 2023-05-01 08:49 | Outpatient (REF) | payer SELFPAY ==
[2023-05-01 12:06] LABS: Estimated Average Glucose 100 mg/dL; Hemoglobin A1c % 5.1 % (<6.0)
[2023-05-01 12:27] LABS: Alanine Aminotransferase 15 U/L (0-31); Anion Gap 11 (12-20); Aspartate Amino Transferase 20 U/L (5-31); Blood Urea Nitrogen 19 mg/dL (9-16); Carbon Dioxide 26 mmol/L (22-29); Chloride 106 mmol/L (96-108); Cholesterol 208 mg/dL (<200); Estimated Glomerular Filt Rate > 60; Glucose Fasting 93 mg/dL (60-99); HDL Cholesterol 48 mg/dL (>40); LDL Cholesterol Calculated 140 mg/dL (<100); Potassium 3.8 mmol/L (3.3-5.1); Sodium 139 mmol/L (135-145); Triglycerides 102 mg/dL (<150); Vitamin D 25-OH Total 34.6 ng/mL (>30)
== END 2023-05-01 08:50 | disposition home or self-care (01) ==
LOC: HO.HMGCLDS 08:49
PROVIDERS: PCP Internal Medicine; Visit Provider Internal Medicine
DX: Z00.01 Encounter for general adult medical examination with abnormal findings (principal); E03.9 Hypothyroidism, unspecified; E78.1 Pure hyperglyceridemia; E06.3 Autoimmune thyroiditis; E55.9 Vitamin D deficiency, unspecified
CPT/HCPCS: 36415; 80048; 80061; 82306; 83036; 84450; 84460

== ENCOUNTER 2023-05-23 09:41 | Outpatient (REF) | payer OTHER, SELFPAY | END 2023-05-23 09:42 | disposition home or self-care (01) | LOC: HO.HOSX 09:41 | PROVIDERS: Visit Provider Orthopaedic Surgery | DX: Z13.89 Encounter for screening for other disorder (principal) ==

== ENCOUNTER 2023-05-24 08:49 | Outpatient (AMB) | payer SELFPAY ==
[2023-05-24 08:53] VITALS: BMI 25.9
--- NOTE | 2023-05-24 08:53 | MHC.OFFVIS ---
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 She describes her pain as sharp in nature. Her pain has gotten worse over the last 6 months in spite of continued non operative treatments. She has been going to formal physical therapy which gives her minimal relief. She has also tried Tylenol and anti-inflammatory medicines which gave her only mild relief. The patient has weakness when lifting her right hand above shoulder height. Allergies gluten Allergy (Unknown, Verified 05/24/23 09:01) Stomach Upset Medication List - Last Reconciled 05/24/23 by Rancho Palacios MD albuterol sulfate 90 mcg/actuation (ProAir HFA) 2 puffs inhalation Q6H PRN cholecalciferol (vitamin D3) 50 mcg PO DAILY levothyroxine 50 mcg PO DAILY 30 days tirzepatide (Mounjaro) 5 mg subcut QWEEK PFSH Medical History (Updated 05/22/23 @ 14:42 by Rancho Palacios MD) Shoulder pain, right Impaired fasting glucose Gene's thyroiditis Hypertriglyceridemia Chronic right shoulder pain Colon cancer screening Pain in left shoulder Vitamin D deficiency Allergic rhinitis History of mammogram History of Papanicolaou smear of cervix Hypothyroidism Surgical History Hx of colonoscopy Hx of LASIK History of section Family History Father HTN (hypertension) CVD (cardiovascular disease) Diabetes mellitus Mother Medical history non-contributory Paternal Uncle Esophageal cancer Brother No problems noted. Sister Ovarian cancer Sister No problems noted. Daughter No problems noted. Maternal Aunt Uterine cancer CVD (cardiovascular disease) Social History (Updated 05/24/23 @ 09:02 by Kiah Fowler CMA) Housing: House Alcohol intake: current Alcohol intake frequency: holidays/special occasions only Patient Tobacco Use Status: Never used Tobacco e-Cigarette/Vaping Use: Never Used Second Hand Smoke Exposure: No service: No Current occupational status: employed Current occupation: [employer] , Right hand dominate Current occupational exposures/hazards: No Cognitive needs: No Hearing needs: No Vision needs: No Physical Exam Vital Signs: BMI result Body Mass Index 25.9 Const Other: Well-nourished well-developed very friendly female awake alert and oriented x3 in no acute distress Extrem Other: Bilateral upper extremity examination shows good capillary refill, no skin lesions noted, normal sensation light touch Right shoulder examination shows decreased range of motion when compared to her left shoulder, 4+ out of 5 strength with supraspinatus testing, positive impingement signs, tenderness over her acromioclavicular joint, no instability Results Reviewed Results Reviewed: X-rays of the patient's right shoulder show severe acromioclavicular joint narrowing, a type 3 acromion, no acute bony abnormalities Assessment & Plan Assessment & Plan (1) Shoulder pain, right: Code(s): M25.511 - Pain in right shoulder Plan Ms. Александр Scott presents with progressively worsening right shoulder pain and weakness due to impingement syndrome and possible full-thickness rotator cuff tearing. Thus, I will send the patient for an MRI of her right shoulder for further evaluation of her rotator cuff tendons. If she does have a full-thickness tear I will recommend surgical repair to optimize her future functional level. She will continue with her range of motion exercises in the meantime to prevent stiffness. Feel free to call me at any time should questions regarding her orthopedic management arise. Thank you very much for asking me to see this very friendly patient. I spent 22 minutes in reviewing the patient's records and imaging studies, seeing the patient and documenting in the medical record. Orders: Orders MR shoulder RT wo con Today M25.511 - Pain in right shoulder XR shoulder RT min 2V Today M25.511 - Pain in right shoulder Coding Level of Care Code New Pt Level 2 (55999) Diagnoses Shoulder pain, right M25.511
== END 2023-05-24 09:23 | disposition home or self-care (01) ==
PROVIDERS: PCP Internal Medicine; Visit Provider Orthopaedic Surgery
DX: M25.511 Pain in right shoulder (principal)
CPT/HCPCS: 99202

== ENCOUNTER 2023-05-24 09:35 | Outpatient (REF) | payer OTHER, SELFPAY ==
--- NOTE | ~2023-05-24 | XR_ITS ---
EXAMINATION: XR SHOULDER, RIGHT CLINICAL INFORMATION: Pain in right shoulder COMPARISON: None available. TECHNIQUE: Neutral AP and scapular Y views of the right shoulder. FINDINGS: The bones are intact. No fracture. Glenohumeral and acromioclavicular alignment is anatomic with normal joint space. No abnormal soft tissue calcifications. XR/XR shoulder RT min 2V IMPRESSION: No bony abnormality.
== END 2023-05-24 09:36 | disposition home or self-care (01) ==
LOC: HO.HOSX 09:35
PROVIDERS: Visit Provider Orthopaedic Surgery
DX: M25.511 Pain in right shoulder (principal)
CPT/HCPCS: 73030

== ENCOUNTER 2023-05-30 12:53 | Outpatient (AMB) | payer SELFPAY ==
[2023-05-30 12:58] VITALS: BMI 25.9
--- NOTE | 2023-05-30 12:58 | A.OFFVIS_ITS ---
Intake Vital Signs 05/30/23 12:58 Height 5 ft 3 in Weight 146 lb BMI 25.9 Intake Visit Reasons: ov- Rt shoulder pain Intake Note: Lory is a 47 year old Right hand dominate female who presents with Right shoulder pain. Patient reports she is scheduled for an MRI but she would like to have a cortisone injection today. She has not had a cortisone injection in the past. She has done physical therapy exercises which aggravated her pain. She has also tried Tylenol and medicines which gave her relief. Allergies gluten Allergy (Unknown, Verified 05/30/23 13:04) Stomach Upset Medication List - Last Reconciled 05/30/23 by Rancho Palacios MD albuterol sulfate 90 mcg/actuation (ProAir HFA) 2 puffs inhalation Q6H PRN cholecalciferol (vitamin D3) 50 mcg PO DAILY levothyroxine 50 mcg PO DAILY 30 days tirzepatide (Mounjaro) 5 mg subcut QWEEK PFSH Medical History Shoulder pain, right Impaired fasting glucose Gene's thyroiditis Hypertriglyceridemia Chronic right shoulder pain Colon cancer screening Pain in left shoulder Vitamin D deficiency Allergic rhinitis History of mammogram History of Papanicolaou smear of cervix Hypothyroidism Surgical History Hx of colonoscopy Hx of LASIK History of section Family History Father HTN (hypertension) CVD (cardiovascular disease) Diabetes mellitus Mother Medical history non-contributory Paternal Uncle Esophageal cancer Brother No problems noted. Sister Ovarian cancer Sister No problems noted. Daughter No problems noted. Maternal Aunt Uterine cancer CVD (cardiovascular disease) Social History Housing: House Alcohol intake: current Alcohol intake frequency: holidays/special occasions only Patient Tobacco Use Status: Never used Tobacco e-Cigarette/Vaping Use: Never Used Second Hand Smoke Exposure: No service: No Current occupational status: employed Current occupation: [employer] , Right hand dominate Current occupational exposures/hazards: No Cognitive needs: No Hearing needs: No Vision needs: No Physical Exam Vital Signs: BMI result Body Mass Index 25.9 Const Other: Well-nourished well-developed very friendly female awake alert and oriented x3 in no acute distress Extrem Other: Bilateral upper extremity examination shows good capillary refill, no skin lesions noted, normal sensation light touch Right shoulder examination shows slightly decreased range of motion when compared to her left shoulder, 4+ out of 5 strength with supraspinatus testing, positive impingement signs, no instability Office Procedures Joint Injection/Drain Joint Injection/Drain Primary Site: right shoulder Prep: site was prepped using aseptic technique Injected: 40 mg of, DepoMedrol and 1% plain lidocaine Procedure: The patient tolerated the procedure well Coding - Large joint Procedure code (CPT) selection complete Assessment & Plan Assessment & Plan (1) Shoulder pain, right: Code(s): M25.511 - Pain in right shoulder Plan Ms. Александр Scott presents with right shoulder pain due to impingement syndrome and possible rotator cuff tearing. I had a lengthy discussion with the patient regarding the treatment options. The risks and benefits of a right shoulder cortisone injection were discussed at length with the patient. The patient wished to proceed with the injection. She tolerated the injection well. She will continue with her home stretching program to prevent stiffness. I will see her back after her right shoulder MRI is completed. Feel free to call me at any time should questions regarding her orthopedic management arise. I spent 22 minutes in reviewing the patient's records and imaging studies, seeing the patient and documenting in the medical record. Orders: Orders AMB Joint Injection/Aspiration 05/30/23 M25.511 - Pain in right shoulder Coding Level of Care Code Est Pt Level 2 (17881) Diagnoses Shoulder pain, right M25.511 CPT Codes Coding - 06245 Large joint: 59350 - Large joint ([id number])
== END 2023-05-30 13:19 | disposition home or self-care (01) ==
PROVIDERS: PCP Internal Medicine; Visit Provider Orthopaedic Surgery
DX: M75.41 Impingement syndrome of right shoulder (principal)
CPT/HCPCS: 20610; 99213

== ENCOUNTER → 2023-05-30 12:53 | Outpatient (BNVA) | payer OTHER, SELFPAY | PROVIDERS: PCP Internal Medicine; Visit Provider Orthopaedic Surgery | DX: M75.41 Impingement syndrome of right shoulder (principal) | CPT/HCPCS: 20610; J1010; J1020 ==

== ENCOUNTER 2023-07-18 08:00 | Outpatient (RCR) | payer OTHER, SELFPAY ==
--- NOTE | 2023-03-26 16:42 | MHC.PT.EP ---
[facility] [place] Office [place] Office [place] Office [address] [phone] F: [phone] F: [phone] F: [phone] F: [phone] Physical Therapy Plan of Care Date of Evaluation: 03/26/23 Date of Surgery: Diagnosis: R shoulder pain. Assessment: Pt is a RHD female referred to PT for eval and treat of L shoulder pain which is resulting in decreased tolerance for donning and doffing coats and pullovers, reaching high shelves, reaching her neck for hygiene and dressing, as well as lifting objects of weight and laying on her L side secondary to decreased L shoulder ROM and strength, decreased cervical ROM, TTP of scapular area, increased scapular tissue tension, mild rounded shoulders and pain. Pt is deemed an appropriate candidate to receive skilled PT services to address their physical impairments in order to improve their functional ability. Frequency and Duration: The patient will be seen 2 x / wk x 4 wks. Short Term Goals: Initiate home program. Data Processing Equipment Repairer Goals: I with home program. Pt will improve SPADI outcome measure by at least 13 points. Pt will be able to reach high shelves with managed Sx. Pt will be able to don and doff pullovers with managed Sx. Treatment Plan: Modalities to reduce pain, spasms and effusion. Manual therapy to restore motion and function. Therapeutic exercise to improve strength and flexibility. Neuromuscular re-education for posture and balance. Therapeutic activities to return to functional activities of daily living. Electronically signed by: Arley Niño PT. Please sign and return to therapist. Thank you for your referral.
== END 2023-10-08 15:07 | disposition home or self-care (01) ==
LOC: HO.PT 08:00
PROVIDERS: PCP Internal Medicine; Visit Provider Internal Medicine
DX: M25.511 Pain in right shoulder (principal)
CPT/HCPCS: 97014; 97110; 97112; 97140; 97161

== ENCOUNTER 2023-11-02 07:50 | Outpatient (REF) | payer OTHER, SELFPAY ==
[2023-11-02 11:01] LABS: Thyroid Stimulating Hormone 0.58 uIU/mL (0.32-4.0)
[2023-11-05 17:53] LABS: Thyroid Peroxidase Antibodies <1 IU/mL (<9)
== END 2023-11-02 07:51 | disposition home or self-care (01) ==
LOC: HO.HMGCLDS 07:50
PROVIDERS: PCP Internal Medicine; Visit Provider Internal Medicine
DX: E03.9 Hypothyroidism, unspecified (principal); E06.3 Autoimmune thyroiditis
CPT/HCPCS: 36415; 84439; 84443; 86376

== ENCOUNTER 2023-11-08 10:17 | Outpatient (AMB) | payer OTHER, SELFPAY ==
[2023-11-08 10:45] VITALS: BP 102/72; PULSE 94; O2SAT 97; BMI 28.3
--- NOTE | 2023-11-08 10:45 | A.OFFPC_ITS ---
Vital Signs 11/08/23 10:45 Height 5 ft 3 in Weight 160 lb BMI 28.3 BP 102/72 Blood Pressure Location Lt brachial Position Sitting Pulse 94 Pulse Source Pulse Oximeter Pulse Oximetry (%) 97 Oxygen Delivery Method Room Air Intake Visit Reasons: ltobbw-dp-kyilfub levels Intake Note: Pt is here today for her thyriod levels results Allergies gluten Allergy (Unknown, Verified 11/08/23 11:20) Stomach Upset Medication List - Last Reconciled 11/08/23 by Sulma Plaza MD albuterol sulfate 90 mcg/actuation (ProAir HFA) 2 puffs inhalation Q6H PRN levothyroxine 50 mcg PO DAILY 30 days Tobacco use date assessed: 11/08/23 Dental Screening Dental Screen Date: 11/08/23 Did you have a dental visit in the last 12 months?: Yes Did you have a dental problem in the last 6 months where you did not have access to dental care?: No Was dental information given to patient?: Patient has dentist HPI wyluut-ky-vrkrvcq levels HPI Details 48-year-old lady with 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 She has been complaining of feeling tired, no energy, has disjointed sleep, hot flashes, thinks that she is going through perimenopause. Unsure whether her symptoms are from being perimenopausal or from her thyroid. She had recent thyroid labs done which showed lower free T4 compared to last check 7 months ago. Has been taking levothyroxine 50 mcg daily. Laboratory Tests 03/29/23 11/02/23 07:10 07:53 TSH 0.55 0.58 Free T4 1.18 0.80 PFSH Medical History Shoulder pain, right Impaired fasting glucose Gene's thyroiditis Hypertriglyceridemia Chronic right shoulder pain Colon cancer screening Pain in left shoulder Vitamin D deficiency Allergic rhinitis History of mammogram History of Papanicolaou smear of cervix Hypothyroidism Surgical History Hx of colonoscopy Hx of LASIK History of section Family History Father HTN (hypertension) CVD (cardiovascular disease) Diabetes mellitus Mother Medical history non-contributory Paternal Uncle Esophageal cancer Brother No problems noted. Sister Ovarian cancer Sister No problems noted. Daughter No problems noted. Maternal Aunt Uterine cancer CVD (cardiovascular disease) Social History Housing: House Alcohol intake: current Alcohol intake frequency: holidays/special occasions only Patient Tobacco Use Status: Never used Tobacco e-Cigarette/Vaping Use: Never Used Second Hand Smoke Exposure: No service: No Current occupational status: employed Current occupation: [employer] , Right hand [employer] Current occupational exposures/hazards: No Cognitive needs: No Hearing needs: No Vision needs: No Questionnaire PHQ-9 Over the last 2 weeks, how often have you been bothered by any of the following problems? 1. Little interest or pleasure in doing things: not at all 2. Feeling down, depressed, or hopeless: not at all 3. Trouble falling or staying asleep, or sleeping too much: several days 4. Feeling tired or having little energy: not at all 5. Poor appetite or overeating: not at all 6. Feeling bad about yourself - or that you are a failure or have let yourself or your family down: not at all 7. Trouble concentrating on things, such as reading the newspaper or watching television: not at all 8. Moving or speaking so slowly that other people could have noticed. Or the opposite - being so fidgety or restless that you have been moving around a lot more than usual: not at all 9. Thoughts that you would be better off or of hurting yourself in some way: not at all Total score: 1 Source: Developed by Drs. Mich Borrero, Mine Cool, Neal Lazar and colleagues, with an educational nitza from [employer]. Thrive Questionnaire Date Thrive assessed: 05/01/23 I am a: Patient What is your living situation today?: I have a steady place to live Within the past 12 months, did the food you bought not last and you didn't have the money to get more?: Never true Within the past 12 months, did you worry whether your food would run out before you got money to buy more?: Never true Do you have trouble paying for medicines?: No Do you have trouble getting transportation to medical appointments?: No Do you have trouble paying your heating and electricity bill?: No Do you have trouble taking care of your child, family member or friend?: No Do you have trouble with day-to-day activities such as bathing, preparing meals, shopping, managing finances, etc.?: No Are you currently unemployed and looking for a job?: No Are you interested in more education?: No Please select the resources that you would like help with: None Currently or been in a relationship where the following occur: No concerns reported THRIVE Score: 0 AUDIT C Alcohol Use Questionnaire (AUDIT-C) 1. How often do you have a drink containing alcohol?: Monthly or less 2. How many drinks containing alcohol do you have on a typical day when you are drinking?: 1 or 2 3. How often do you have six or more drinks on one occasion?: Monthly Total Score: 3 GRAY-7 AMB Questionnaire GRAY-7 Date GRAY - 7 assessed: 05/01/23 Feeling nervous, anxious, or on edge: 0 = Not at all Not being able to stop or control worryin = Not at all Worrying too much about different things: 0 = Not at all Trouble relaxin = Several days Being so restless that it is hard to sit still: 0 = Not at all Becoming easily annoyed or irritable: 1 = Several days Feeling afraid as if something awful might happen: 0 = Not at all Total GRAY-7 score (0-4 normal; 5-9 mild; 10-14 moderate; 15-21 severe): 2 Source: Developed by Drs. Mich Borrero, Mine Cool, Neal Lazar and colleagues, with an educational nitza from [employer]. Review of Systems Const All systems reviewed & are unremarkable except as noted in HPI and below Physical exam (Primary Care) Vital Signs: Last Vital Signs Pulse 94 11/08/23 10:45 BP 102/72 11/08/23 10:45 Pulse Ox 97 11/08/23 10:45 Oxygen Delivery Method Room Air 11/08/23 10:45 BMI result Body Mass Index 28.3 Tobacco/Smoking Status: Tobacco use Status Tobacco use date assessed 11/08/23 11/08/23 10:57 Patient Tobacco Use Status Never used Tobacco 11/08/23 10:47 e-Cigarette/Vaping Use Never Used 11/08/23 10:47 PHQ-9: PHQ-9 Score PHQ-9: Total score 1 11/08/23 11:38 Thrive Assessment: Date of Thrive Assessment Date Thrive assessed 05/01/23 11/08/23 10:47 Currently or been in a relationship where the following occur: No concerns reported Const General: comfortable, no acute distress and alert Orientation/consciousness: patient oriented x3 HENMT Head: Yes normocephalic Face and sinus: Yes face symmetric Throat: Yes posterior oropharynx normal Eyes General: appearance normal, both eyes and all related structures Neck Neck: Yes full ROM, Yes no lymphadenopathy and Yes supple Thyroid: diffusely enlarged Resp Effort & Inspection: normal respiratory effort and able to speak in complete sentences Auscultation: clear to auscultation bilaterally Cardio Palpation: normal PMI Rate: regular rate Rhythm: regular rhythm Heart sounds: S1 normal heart sound present and S2 normal heart sound present Bruits: no abdominal aortic bruits GI Inspection: Yes normal to inspection Palpation (GI): No Abdominal aortic bruit present, Soft to palpation, nontender, no guarding and no masses Auscultation: normal bowel sounds Skin General skin exam: no rashes or lesions noted Neuro General: patient oriented x3, gait normal, tone normal, moves all extremities, Normal light touch and pain sensation, no focal motor deficits and CN's II-XI intact bilaterally Extrem General: Yes full ROM, Yes no joint enlargement, Yes no pedal edema, Yes no calf tenderness and Yes normal gait Psych Appearance: grossly normal Mental Status: mental status grossly normal Speech and movement: Normal speech and movement present Affect: normal affect Attitude: cooperative Thought content: Normal thought content present Results Reviewed Results Reviewed: Name: Lory Doshi Age/Sex: 48/F : 1975 Unit#: [id number] Attend Dr: Sulma Plaza MD Re11/02/23 Status: DEP [facility] Disch: SPEC : [id number] TIAN: 11/02/23 STATUS: COMP REQ : [id number] RECD: 11/02/23-[address]: Sulma Plaza MD COMP: 11/02/23-1101 ENTERED: 11/02/23-[address]: ORDERED: Free T4, TSH Test Result Flag Reference Free T4 0.80 0.71-1.85 ng/dL TSH 3rd Gen. 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
== END 2023-11-08 11:39 | disposition home or self-care (01) ==
PROVIDERS: PCP Internal Medicine; Visit Provider Internal Medicine
DX: E03.9 Hypothyroidism, unspecified (principal)
CPT/HCPCS: 99213

== ENCOUNTER 2023-11-15 07:53 | Outpatient (AMB) | payer OTHER, SELFPAY ==
--- NOTE | 2023-11-15 07:55 | MHC.OFFVIS ---
Vital Signs 11/15/23 07:57 Height 5 ft 2 in Weight 162 lb 11.218 oz BMI 29.8 BP 138/88 Blood Pressure Location Lt brachial Position Sitting Pulse 71 Pulse Source Pulse Oximeter Intake Visit Reasons: Hypothyroidism Intake Note: Patient present today for Hypothyroidism office visit. 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 Previoulsy saw Dr. Parnell 04/21 last visit. HPI from prior visit Patient has a longstanding history of hypothyroidism and was on low dose Levothyroxine. She then in early 2018 began experiencing swelling and tenderness in her neck. She discussed this with her PCP, who increased her dose of Levothyroxine to 88 mcg PO daily. TSH checked 11/04/18 with TSH 0.05. We subsequently decreased her Levothyroxine dose to 50 mcg PO daily. TSH subsequently normalized to 1.0 01/22/2019 and her energy level improved. She then remained on Levothyroxine 50 mcg PO daily. Her blood work from 11/02/2023 showed TSH of 0.58, and free T4 of 0.8. Feels like always cold. Has been having hot flashes for the past 2 years somewhat better now. Periods coming every 3 months now. NO VTE, heart or stroke. No breast cancer. Maternal aunts x2 have breast cancer and sister had ovarian cancer. Has gained weight 20 lbs in the past 5 months after she stopped Mounjaro. She had lost 20 lbs before on the medicine she was on Mounjaro for less than a year. Dyspnea on exertion. More exhausted. No hair or skin changes. Feels like she is more anxious. Palpitations intermittently, she did a stress test that was okay. Patient currently denies diarrhea or constipation, hair loss, changes in appearance of eyes or vision changes, tremors, increased diaphoresis or dry skin. ? Patient denies any difficulty swallowing, pain on swallowing or voice changes or difficulty breathing. Patient denies any history of childhood neck radiation. Denies having ever used lithium, amiodarone or biotin supplements. Patient denies any family history of thyroid cancer or thyroid disease. Review of systems Constitutional: no fevers, chills HEENT: no changes in vision Cardiac: No chest pain, has intermittent palpitations. Pulmonary: SOB on exertion GI:No abdominal pain, no nausea or vomiting, no anorexia, no blood in stool : no burning micturition, dysuria or increase in urinary frequency Physical exam General: sitting comfortably in no acute distress HEENT: normocephalic/atraumatic, moist oral mucosa Neck: supple, symmetrical, enlarged firm goiter, no nodules , no dorsocervical or supraclavicular fat pads Cardiac: normal heart sounds Pulm: normal breath sounds B/L, no added breath sounds Abd: not distended, no tenderness Extremities: no edema, no signs of myxedema, normal reflexes Neuro: AAO x3, Speech: normal, no facial droop, moving all 4 extremities PFSH Medical History Shoulder pain, right Impaired fasting glucose Gene's thyroiditis Hypertriglyceridemia Chronic right shoulder pain Colon cancer screening Pain in left shoulder Vitamin D deficiency Allergic rhinitis History of mammogram History of Papanicolaou smear of cervix Hypothyroidism Surgical History Hx of colonoscopy Hx of LASIK History of section Family History Father HTN (hypertension) CVD (cardiovascular disease) Diabetes mellitus Mother Medical history non-contributory Paternal Uncle Esophageal cancer Brother No problems noted. Sister Ovarian cancer Sister No problems noted. Daughter No problems noted. Maternal Aunt Uterine cancer CVD (cardiovascular disease) Social History Housing: House Alcohol intake: current Alcohol intake frequency: holidays/special occasions only Patient Tobacco Use Status: Never used Tobacco e-Cigarette/Vaping Use: Never Used Second Hand Smoke Exposure: No service: No Current occupational status: employed Current occupation: [employer] , Right hand dominate Current occupational exposures/hazards: No Cognitive needs: No Hearing needs: No Vision needs: No Results Reviewed Results Reviewed: Laboratory Tests 08/01/21 11/10/21 03/29/23 07:13 12:20 07:10 TSH 0.85 0.69 0.55 Free T4 1.20 1.10 1.18 11/02/23 07:53 TSH 0.58 Free T4 0.80 US THYROID 11/2019 I reviewed the images myself which did show enlarged homogeneous gland normal vascularity, with subcentimeter cysts noted bilaterally. CLINICAL INFORMATION: Multinodular goiter. COMPARISON: Ultrasound thyroid soft tissue dated 11/12/2018 TECHNIQUE: Linear transducer barry-scale and color Doppler examination with attention to the region of the thyroid. FINDINGS: SIZE: Measurements of the thyroid lobes and nodules are given in sagittal, anteroposterior and transverse dimensions respectively. Right Thyroid Lobe: 5.6 x 2.2 x 2.0 cm, volume 12.5 mL. Previously 5.4 x 2.3 x 2.2 cm, volume 14.3 mL. Parenchyma: The gland echotexture is homogeneous. Thyroid vascularity is normal. Left Thyroid Lobe: 5.7 x 1.8 x 2.3 cm, volume 12.7 mL. Previously 5.7 x 2.1 x 2.5 cm, volume 15.7 mL. Parenchyma: The gland echotexture is homogeneous. Thyroid vascularity is normal. Isthmus: 0.6 cm in maximum AP dimension. Previously 0.60 cm. RIGHT THYROID LOBE: There are 3 nodules seen. 1. Location: Upper. Size: 0.2 x 0.1 x 0.2 cm. Previous: Not seen. Nodule characteristics: Cyst. 2. Location: Upper. Size: 0.3 x 0.3 x 0.3 cm. Previous: 0.4 x 0.3 x 0.3 cm. Nodule characteristics: Mild hypoechoic, ill-defined margins, no color flow. 3. Location: Upper to mid medial. Size: 0.5 x 0.3 x 0.4 cm. Previous: 0.5 x 0.3 x 0.4 cm. Nodule characteristics: Isoechoic/mild hypoechoic, no definite color flow. ISTHMUS: No nodules. LEFT THYROID LOBE: There are 2 nodules seen. 1. Location: Mid. Size: 0.2 x 0.1 x 0.2 cm. Previous: Not seen. Nodule characteristics: Cyst. 2. Location: Lower. Size: 0.2 x 0.2 x 0.2 cm. Previous: Not seen. Nodule characteristics: Mild hypoechoic, circumscribed, no color flow. NODES: No lymphadenopathy is seen in the tissue surrounding the thyroid gland. IMPRESSION: 1. Thyroid normal in size, borderline decreased in size from prior exam 11/12/2018. 2. A few scattered tiny benign-appearing nodules all under 1 cm. No adenopathy demonstrated. 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 She does have some symptoms of exhaustion that have been worsening, however she is also having poor sleep due to hot flashes at night as she has in her perimenopause. , as well as she got promoted at work and has increased amount of stress/work from there. Her most recent thyroid function testing from 11/02/2023 showed TSH normal at 0.58, with free T4 of 0.8. While free T4 has trended down, it is was still within normal range and her TSH is actually on the lower side. Since for now we discussed to continue the same dose of levothyroxine 50 mcg daily. She has been gaining weight recently since she stopped Mounjaro 4 months ago and gained 20 lb. Discussed with patient that weight does alter the dose of levothyroxine so we will have her repeat her labs in 3 months to ensure that she is still keep biochemically euthyroid and to see whether she needs any dose adjustment. Patient is still getting her periods every 3-4 months, however she has been having hot flashes, she has no history of VTE, stroke or IL. she does have family history of breast cancer in 2 maternal aunts and also has history of sudden cardiac in her family. She is already established with an OBGYN, and I counseled her to discuss perimenopausal with her claims agent right of way to see if in the next few months/years, once her periods stopped she would be a candidate for hormone replacement therapy or if she would benefit from some other agents for the vasomotor symptoms. Patient verbalized understanding and is agreeable with the plan. Plan: -ordered TSH, free T4 to be done in 3 months, sooner if she has any symptoms of hypothyroidism or hyperthyroidism, counseled about these symptoms -continue levothyroxine 50 mcg daily. -no need for repeat ultrasound of the thyroid as her ultrasound from 2019 did not show any findings that need to be followed, plus patient does not have any compressive symptoms and on exam she is noted to have a goiter which she has had before as well -talked to claims agent right of way about vasomotor symptoms/perimenopause. -follow up in 3 months Plan I spent 30 minutes in reviewing the record, seeing the patient and documenting in the medical record. 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
[2023-11-15 07:57] VITALS: BP 138/88; PULSE 71; BMI 29.8
== END 2023-11-15 08:34 | disposition home or self-care (01) ==
PROVIDERS: PCP Internal Medicine; Visit Provider Student in an Organized Health Care Education/Training Program
DX: E06.3 Autoimmune thyroiditis (principal)
CPT/HCPCS: 99214

== ENCOUNTER → 2023-11-15 07:53 | Outpatient (BNVA) | payer OTHER, SELFPAY | PROVIDERS: PCP Internal Medicine; Visit Provider Student in an Organized Health Care Education/Training Program ==

== ENCOUNTER 2024-02-09 09:31 | Outpatient (REF) | payer OTHER, SELFPAY ==
[2024-02-09 12:10] LABS: Free T4 (Free Thyroxine) 0.94 ng/dL (0.71-1.85); Thyroid Stimulating Hormone 0.62 uIU/mL (0.32-4.0)
== END 2024-02-09 09:32 | disposition home or self-care (01) ==
LOC: HO.HMGCLDS 09:31
PROVIDERS: PCP Internal Medicine; Visit Provider Student in an Organized Health Care Education/Training Program
DX: E06.3 Autoimmune thyroiditis (principal)
CPT/HCPCS: 36415; 84439; 84443

== ENCOUNTER 2024-02-14 07:53 | Outpatient (AMB) | payer OTHER, SELFPAY ==
[2024-02-14 07:55] VITALS: BP 150/90; PULSE 87; BMI 29.3
--- NOTE | 2024-02-14 07:55 | MHC.OFFVIS ---
Vital Signs 02/14/24 07:55 02/14/24 08:14 Height 5 ft 3 in Weight 165 lb 9.074 oz BMI 29.3 BP 150/90 H 142/80 H Blood Pressure Location Lt brachial Lt brachial Position Sitting Pulse 87 Pulse Source Pulse Oximeter Intake Visit Reasons: Hypothyroidism Intake Note: Patient present today for Hypothyroidism office visit. 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 HPI from prior visit Patient has a longstanding history of hypothyroidism and was on low dose Levothyroxine. She then in early 2018 began experiencing swelling and tenderness in her neck. She discussed this with her PCP, who increased her dose of Levothyroxine to 88 mcg PO daily. TSH checked 11/04/18 with TSH 0.05. We subsequently decreased her Levothyroxine dose to 50 mcg PO daily. TSH subsequently normalized to 1.0 01/22/2019 and her energy level improved. She then remained on Levothyroxine 50 mcg PO daily. Her blood work from 11/02/2023 showed TSH of 0.58, and free T4 of 0.8. Interval history Labs from 02/09/2024 showed normal TSH of 0.62, normal free T4 of 0.94. Feels like always cold. Hot flashes almost resolved. Periods still every 3 months, LMP: 02/09. NO VTE, heart or stroke. No breast cancer. Maternal aunts x2 have breast cancer and sister had ovarian cancer. Weight stable Dyspnea on exertion. More exhausted. No hair or skin changes. Feels like she is more anxious. Palpitations intermittently, she did a stress test that was okay. Patient currently denies diarrhea or constipation, hair loss, changes in appearance of eyes or vision changes, tremors, increased diaphoresis or dry skin. ? Patient denies any difficulty swallowing, pain on swallowing or voice changes or difficulty breathing. Patient denies any history of childhood neck radiation. Denies having ever used lithium, amiodarone or biotin supplements. Patient denies any family history of thyroid cancer or thyroid disease. Review of systems Constitutional: no fevers, chills HEENT: no changes in vision Cardiac: No chest pain, has intermittent palpitations. Pulmonary: SOB on exertion GI:No abdominal pain, no nausea or vomiting, no anorexia, no blood in stool : no burning micturition, dysuria or increase in urinary frequency Physical exam General: sitting comfortably in no acute distress HEENT: normocephalic/atraumatic, moist oral mucosa Neck: supple, symmetrical, enlarged firm goiter, no nodules , no dorsocervical or supraclavicular fat pads Cardiac: normal heart sounds Pulm: normal breath sounds B/L, no added breath sounds Abd: not distended, no tenderness Extremities: no edema, no signs of myxedema, normal reflexes Neuro: AAO x3, Speech: normal, no facial droop, moving all 4 extremities 08/01/21 11/10/21 03/29/23 07:13 12:20 07:10 TSH 0.85 0.69 0.55 Free T4 1.20 1.10 1.18 11/02/23 07:53 TSH 0.58 Free T4 0.80 Laboratory Tests 02/09/24 09:44 TSH 0.62 Free T4 0.94 US THYROID 11/2019 CLINICAL INFORMATION: Multinodular goiter. COMPARISON: Ultrasound thyroid soft tissue dated 11/12/2018 TECHNIQUE: Linear transducer barry-scale and color Doppler examination with attention to the region of the thyroid. FINDINGS: SIZE: Measurements of the thyroid lobes and nodules are given in sagittal, anteroposterior and transverse dimensions respectively. Right Thyroid Lobe: 5.6 x 2.2 x 2.0 cm, volume 12.5 mL. Previously 5.4 x 2.3 x 2.2 cm, volume 14.3 mL. Parenchyma: The gland echotexture is homogeneous. Thyroid vascularity is normal. Left Thyroid Lobe: 5.7 x 1.8 x 2.3 cm, volume 12.7 mL. Previously 5.7 x 2.1 x 2.5 cm, volume 15.7 mL. Parenchyma: The gland echotexture is homogeneous. Thyroid vascularity is normal. Isthmus: 0.6 cm in maximum AP dimension. Previously 0.60 cm. RIGHT THYROID LOBE: There are 3 nodules seen. 1. Location: Upper. Size: 0.2 x 0.1 x 0.2 cm. Previous: Not seen. Nodule characteristics: Cyst. 2. Location: Upper. Size: 0.3 x 0.3 x 0.3 cm. Previous: 0.4 x 0.3 x 0.3 cm. Nodule characteristics: Mild hypoechoic, ill-defined margins, no color flow. 3. Location: Upper to mid medial. Size: 0.5 x 0.3 x 0.4 cm. Previous: 0.5 x 0.3 x 0.4 cm. Nodule characteristics: Isoechoic/mild hypoechoic, no definite color flow. ISTHMUS: No nodules. LEFT THYROID LOBE: There are 2 nodules seen. 1. Location: Mid. Size: 0.2 x 0.1 x 0.2 cm. Previous: Not seen. Nodule characteristics: Cyst. 2. Location: Lower. Size: 0.2 x 0.2 x 0.2 cm. Previous: Not seen. Nodule characteristics: Mild hypoechoic, circumscribed, no color flow. NODES: No lymphadenopathy is seen in the tissue surrounding the thyroid gland. IMPRESSION: 1. Thyroid normal in size, borderline decreased in size from prior exam 11/12/2018. 2. A few scattered tiny benign-appearing nodules all under 1 cm. No adenopathy demonstrated. [facility] Medical History Shoulder pain, right Impaired fasting glucose Gene's thyroiditis Hypertriglyceridemia Chronic right shoulder pain Colon cancer screening Pain in left shoulder Vitamin D deficiency Allergic rhinitis History of mammogram History of Papanicolaou smear of cervix Hypothyroidism Surgical History Hx of colonoscopy Hx of LASIK History of section Family History Father HTN (hypertension) CVD (cardiovascular disease) Diabetes mellitus Mother Medical history non-contributory Paternal Uncle Esophageal cancer Brother No problems noted. Sister Ovarian cancer Sister No problems noted. Daughter No problems noted. Maternal Aunt Uterine cancer CVD (cardiovascular disease) Social History Housing: House Alcohol intake: current Alcohol intake frequency: holidays/special occasions only Patient Tobacco Use Status: Never used Tobacco e-Cigarette/Vaping Use: Never Used Second Hand Smoke Exposure: No service: No Current occupational status: employed Current occupation: [employer] , Right hand dominate Current occupational exposures/hazards: No Cognitive needs: No Hearing needs: No Vision needs: No Assessment & Plan Assessment & Plan (1) Gene's thyroiditis: Code(s): E06.3 - Autoimmune thyroiditis Category: Medical Plan: See below (2) Hypothyroidism: Code(s): E03.9 - Hypothyroidism, unspecified Category: Medical Qualifiers: Hypothyroidism type: due to Gene's thyroiditis Qualified Code(s): E06.3 - Autoimmune thyroiditis Plan: Patient with 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 Labs from January 2024 shows she is biochemically euthyroid. She still continues to have some fatigue that is bothersome. Plan: -ordered TSH, free T4 to be done in 6 months, sooner if she has any symptoms of hypothyroidism or hyperthyroidism, counseled about these symptoms -continue levothyroxine 50 mcg daily. -no need for repeat ultrasound of the thyroid as her ultrasound from 2019 did not show any findings that need to be followed, plus patient does not have any compressive symptoms and on exam she is noted to have a goiter which she has had before as well -follow up in 6 months Plan see above Orders: Orders Thyroid Stimulating Hormone 6 Months E06.3 - Autoimmune thyroiditis Free T4 (Free Thyroxine) 6 Months E06.3 - Autoimmune thyroiditis Medications: Refilled levothyroxine 50 mcg PO DAILY 30 days 90 tabs 4RF Patient Instructions: Continue levothyroxine 50 mcg daily Do bloodwork 3-4 days prior to follow up in 6 months Coding Level of Care Code Est Pt Level 3 (11046) Diagnoses Gene's thyroiditis E06.3 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
[2024-02-14 08:14] VITALS: BP 142/80
== END 2024-02-14 08:14 | disposition home or self-care (01) ==
PROVIDERS: PCP Internal Medicine; Visit Provider Student in an Organized Health Care Education/Training Program
DX: E06.3 Autoimmune thyroiditis (principal)
CPT/HCPCS: 99213

== ENCOUNTER 2024-02-18 10:18 | Outpatient (AMB) | payer OTHER, SELFPAY ==
[2024-02-18 10:44] VITALS: BP 146/86; PULSE 92; O2SAT 97; BMI 29.1
--- NOTE | 2024-02-18 10:44 | MHC.PC.OV ---
Vital Signs 02/18/24 10:44 Height 5 ft 3 in Weight 164 lb 6 oz BMI 29.1 BP 146/86 H Blood Pressure Location Rt brachial Position Sitting Pulse 92 Pulse Source Pulse Oximeter Pulse Oximetry (%) 97 Oxygen Delivery Method Room Air Intake Visit Reasons: BP elevated Intake Note: Pt is here today c/o elevated b/p Allergies gluten Allergy (Unknown, Verified 02/18/24 10:58) Stomach Upset Medication List - Last Reconciled 02/18/24 by Sulma Plaza MD albuterol sulfate 90 mcg/actuation (ProAir HFA) 2 puffs inhalation Q6H PRN levothyroxine 50 mcg PO DAILY 30 days Tobacco use date assessed: 02/18/24 Dental Screening Dental Screen Date: 11/08/23 Did you have a dental visit in the last 12 months?: No Did you have a dental problem in the last 6 months where you did not have access to dental care?: No Was dental information given to patient?: Patient has dentist [facility] Medical History (Updated 02/18/24 @ 11:17 by Sulma Plaza MD) Obesity Pre-diabetes Essential hypertension Shoulder pain, right Impaired fasting glucose Gene's thyroiditis Hypertriglyceridemia Chronic right shoulder pain Colon cancer screening Pain in left shoulder Vitamin D deficiency Allergic rhinitis History of mammogram History of Papanicolaou smear of cervix Hypothyroidism Surgical History Hx of colonoscopy Hx of LASIK History of section Family History Father HTN (hypertension) CVD (cardiovascular disease) Diabetes mellitus Mother Medical history non-contributory Paternal Uncle Esophageal cancer Brother No problems noted. Sister Ovarian cancer Sister No problems noted. Daughter No problems noted. Maternal Aunt Uterine cancer CVD (cardiovascular disease) Social History Housing: House Alcohol intake: current Alcohol intake frequency: holidays/special occasions only Patient Tobacco Use Status: Never used Tobacco e-Cigarette/Vaping Use: Never Used Second Hand Smoke Exposure: No service: No Current occupational status: employed Current occupation: [employer] , Right hand dominate Current occupational exposures/hazards: No Cognitive needs: No Hearing needs: No Vision needs: No Questionnaire Thrive Questionnaire Date Thrive assessed: 11/01/23 I am a: Patient What is your living situation today?: I have a steady place to live Within the past 12 months, did the food you bought not last and you didn't have the money to get more?: Never true Within the past 12 months, did you worry whether your food would run out before you got money to buy more?: Never true Do you have trouble paying for medicines?: No Do you have trouble getting transportation to medical appointments?: No Do you have trouble paying your heating and electricity bill?: No Do you have trouble taking care of your child, family member or friend?: No Do you have trouble with day-to-day activities such as bathing, preparing meals, shopping, managing finances, etc.?: No Are you currently unemployed and looking for a job?: No Are you interested in more education?: No Please select the resources that you would like help with: None Currently or been in a relationship where the following occur: No concerns reported THRIVE Score: 0 GRAY-7 AMB Questionnaire GRAY-7 Date GRAY - 7 assessed: 05/01/23 Source: Developed by Drs. Mich Borrero, Mine Cool, Neal Lazar and colleagues, with an educational nitza from [email or web address]. Review of Systems Const Denies fatigue, Denies fever(s), Denies headache(s) and Denies weakness Eyes Details: Now needing to wear reading glasses to read, sees Dr. Shay ENT Denies dizziness, Denies headache(s), Denies nasal discharge, Denies sinus pain and Denies sore throat Card Denies chest pain, Denies lightheadedness, Denies palpitations and Denies dyspnea Resp Denies chest congestion, Denies cough, Denies dyspnea and Denies wheezing GI Denies abdominal pain, Denies change in bowel habits and Denies heartburn Reports abnormal menses (Skipping months), Denies urinary frequency, Reports hot flashes, Denies dysuria, Reports urinary incontinence (Occasional leakage with cough) and Denies urinary urgency Musc Denies muscle weakness Neuro Denies dizziness, Denies headache(s) and Denies weakness Psych Reports no additional complaints Endo Denies fatigue, Denies polydipsia, Denies polyuria and Denies palpitations Aller/Immun Denies seasonal rhinorrhea and Denies wheezing Physical exam (Primary Care) Vital Signs: Last Vital Signs Pulse 92 02/18/24 10:44 BP 146/86 H 02/18/24 10:44 Pulse Ox 97 02/18/24 10:44 Oxygen Delivery Method Room Air 02/18/24 10:44 BMI result Body Mass Index 29.1 Tobacco/Smoking Status: Tobacco use Status Tobacco use date assessed 02/18/24 02/18/24 10:45 Patient Tobacco Use Status Never used Tobacco 02/18/24 10:45 e-Cigarette/Vaping Use Never Used 02/18/24 10:45 Thrive Assessment: Date of Thrive Assessment Date Thrive assessed 11/01/23 02/18/24 10:45 Currently or been in a relationship where the following occur: No concerns reported Const General: comfortable, no acute distress and alert Orientation/consciousness: patient oriented x3 HENMT Face and sinus: Yes face symmetric Throat: Yes posterior oropharynx normal Neck Neck: Yes full ROM, Yes no lymphadenopathy and Yes supple Thyroid: diffusely enlarged Resp Effort & Inspection: normal respiratory effort and able to speak in complete sentences Auscultation: clear to auscultation bilaterally Cardio Palpation: normal PMI Rate: regular rate Rhythm: regular rhythm Heart sounds: S1 normal heart sound present and S2 normal heart sound present Bruits: no abdominal aortic bruits GI Inspection: Yes normal to inspection Palpation (GI): No Abdominal aortic bruit present, Soft to palpation, nontender, no guarding and no masses Auscultation: normal bowel sounds Neuro General: patient oriented x3, gait normal, tone normal, moves all extremities, Normal light touch and pain sensation, no focal motor deficits and CN's II-XI intact bilaterally Extrem General: Yes full ROM, Yes no joint enlargement, Yes no pedal edema, Yes no calf tenderness and Yes normal gait Psych Appearance: grossly normal Mental Status: mental status grossly normal Speech and movement: Normal speech and movement present Affect: normal affect Attitude: cooperative Thought content: Normal thought content present Results Reviewed Results Reviewed: Laboratory Tests 02/09/24 09:44 TSH 0.62 Free T4 0.94 Coding Level of Care Code Est Pt Level 4 (20362) Complex EM visit Add On G2211 Diagnoses Essential hypertension I10 Pre-diabetes R73.03 Obesity E66.9 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 Reinforced importance of following a low-salt diet and getting regular exercise, weight loss also recommended. Will recheck blood pressure again after starting Mounjaro which should help improve blood pressure readings. (2) Pre-diabetes: Code(s): R73.03 - Prediabetes Category: Medical Plan: Will start her on Mounjaro to be used as directed. (3) Obesity: Code(s): E66.9 - Obesity, unspecified Category: Medical Plan: Has been having hard time with losing weight despite doing regular exercise, and adhering to healthy eating habits. Will try her on Mounjaro 2.5 mg per injection to be administered subcutaneously once a week, directions on how to use medication discussed with patient. Including possible side effects which may include abdominal cramping, nausea, alteration in bowel habits, and may increase the risk for pancreatitis, and gallstones as well as vision changes. Will see her back in 4 weeks after starting medication (4) Hypothyroidism: Code(s): E03.9 - Hypothyroidism, unspecified Category: Medical Qualifiers: Hypothyroidism type: due to Gene's thyroiditis Qualified Code(s): E06.3 - Autoimmune thyroiditis Plan: Latest thyroid levels are within normal limits, continued on current dose of levothyroxine Medications: New Mounjaro (tirzepatide) for 4 weeks 2.5 mg (0.5 mL) subcut QWEEK 2 mL 0RF NS E66.9 - Obesity, unspecified, R73.03 - Prediabetes
== END 2024-02-18 13:34 | disposition home or self-care (01) ==
PROVIDERS: PCP Internal Medicine; Visit Provider Internal Medicine
DX: I10 Essential (primary) hypertension (principal); R73.03 Prediabetes; Z68.29 Body mass index [BMI] 29.0-29.9, adult; E66.9 Obesity, unspecified; E06.3 Autoimmune thyroiditis

== ENCOUNTER → 2024-02-18 10:18 | Outpatient (BNVA) | payer OTHER, SELFPAY | PROVIDERS: PCP Internal Medicine; Visit Provider Internal Medicine ==

== ENCOUNTER 2024-03-26 09:14 | Outpatient (AMB) | payer OTHER, SELFPAY ==
[2024-03-26 10:13] VITALS: BP 128/82; PULSE 86; TEMP 36.7; O2SAT 98; BMI 29.2
--- NOTE | 2024-03-26 10:13 | A.OFFPC_ITS ---
Vital Signs 03/26/24 10:13 Height 5 ft 3 in Weight 165 lb BMI 29.2 BP 128/82 Blood Pressure Location Rt brachial Position Sitting Pulse 86 Pulse Source Pulse Oximeter Temp 98.0 F Temp Source Oral Pulse Oximetry (%) 98 Oxygen Delivery Method Room Air Intake Visit Reasons: 4 week follow up/BP Intake Note: Pt is here today for her HTN Allergies gluten Allergy (Unknown, Verified 03/26/24 10:31) Stomach Upset Medication List - Last Reconciled 03/26/24 by Sulma Plaza MD levothyroxine 50 mcg PO DAILY 30 days Tobacco use date assessed: 03/26/24 Dental Screening Dental Screen Date: 03/26/24 Did you have a dental visit in the last 12 months?: No Did you have a dental problem in the last 6 months where you did not have access to dental care?: No Was dental information given to patient?: Patient has dentist HPI 4 week follow up/BP HPI Details 48-year-old lady with hypothyroidism, he re today for follow-up on her blood pressure. Was found to have elevated blood pressure on last visit. Patient however states that she has been recur recovering from a norovirus infection. At present feels well, with no complaints of abdominal pain, or changes in bowel movement. Blood pressure today is within normal limits. She has been feeling well, with no headaches, chest pain, lightheadedness or shortness of breath reported. Last thyroid levels checked 01/2024 were within normal limits. [facility] Medical History Essential hypertension Impaired fasting glucose Gene's thyroiditis Hypertriglyceridemia Vitamin D deficiency Allergic rhinitis History of Papanicolaou smear of cervix Hypothyroidism Surgical History Hx of colonoscopy Hx of LASIK History of section Family History Father HTN (hypertension) CVD (cardiovascular disease) Diabetes mellitus Mother Medical history non-contributory Paternal Uncle Esophageal cancer Brother No problems noted. Sister Ovarian cancer Sister No problems noted. Daughter No problems noted. Maternal Aunt Uterine cancer CVD (cardiovascular disease) Social History Housing: House Alcohol intake: current Alcohol intake frequency: holidays/special occasions only Patient Tobacco Use Status: Never used Tobacco e-Cigarette/Vaping Use: Never Used Second Hand Smoke Exposure: No service: No Current occupational status: employed Current occupation: [employer] , Right hand dominate Current occupational exposures/hazards: No Cognitive needs: No Hearing needs: No Vision needs: No Questionnaire PHQ-9 Over the last 2 weeks, how often have you been bothered by any of the following problems? 1. Little interest or pleasure in doing things: not at all 2. Feeling down, depressed, or hopeless: not at all 3. Trouble falling or staying asleep, or sleeping too much: not at all 4. Feeling tired or having little energy: not at all 5. Poor appetite or overeating: not at all 6. Feeling bad about yourself - or that you are a failure or have let yourself or your family down: not at all 7. Trouble concentrating on things, such as reading the newspaper or watching television: not at all 8. Moving or speaking so slowly that other people could have noticed. Or the opposite - being so fidgety or restless that you have been moving around a lot more than usual: not at all 9. Thoughts that you would be better off or of hurting yourself in some way: not at all Total score: 0 Source: Developed by Drs. Mich Borrero, Mine Cool, Neal Lazar and colleagues, with an educational nitza from [employer]. Thrive Questionnaire Date Thrive assessed: 03/19/24 I am a: Patient What is your living situation today?: I have a steady place to live Within the past 12 months, did the food you bought not last and you didn't have the money to get more?: Never true Within the past 12 months, did you worry whether your food would run out before you got money to buy more?: Never true Do you have trouble paying for medicines?: No Do you have trouble getting transportation to medical appointments?: No Do you have trouble paying your heating and electricity bill?: No Do you have trouble taking care of your child, family member or friend?: No Do you have trouble with day-to-day activities such as bathing, preparing meals, shopping, managing finances, etc.?: No Are you currently unemployed and looking for a job?: No Are you interested in more education?: No Please select the resources that you would like help with: None Currently or been in a relationship where the following occur: No concerns reported THRIVE Score: 0 AUDIT C Alcohol Use Questionnaire (AUDIT-C) 1. How often do you have a drink containing alcohol?: 2-4 times a month 2. How many drinks containing alcohol do you have on a typical day when you are drinking?: 1 or 2 3. How often do you have six or more drinks on one occasion?: Never Total Score: 2 GRAY-7 AMB Questionnaire GRAY-7 Date GRAY - 7 assessed: 03/26/24 Feeling nervous, anxious, or on edge: 0 = Not at all Not being able to stop or control worryin = Not at all Worrying too much about different things: 0 = Not at all Trouble relaxin = Several days Being so restless that it is hard to sit still: 0 = Not at all Becoming easily annoyed or irritable: 0 = Not at all Feeling afraid as if something awful might happen: 0 = Not at all Total GRAY-7 score (0-4 normal; 5-9 mild; 10-14 moderate; 15-21 severe): 1 Source: Developed by Drs. Mich Borrero, Mine Cool, Neal Lazar and colleagues, with an educational nitza from [employer]. Review of Systems Const Denies fatigue, Denies fever(s), Denies headache(s) and Denies weakness ENT Denies dizziness, Denies headache(s), Denies nasal discharge, Denies sinus pain and Denies sore throat Card Denies chest pain, Denies lightheadedness, Denies palpitations and Denies dyspnea Resp Denies chest congestion, Denies cough, Denies dyspnea and Denies wheezing GI Denies abdominal pain, Denies change in bowel habits and Denies heartburn Reports abnormal menses (Skipping months), Denies urinary frequency, Reports hot flashes, Denies dysuria, Reports urinary incontinence (Occasional leakage with cough) and Denies urinary urgency Musc Denies muscle weakness Neuro Denies dizziness, Denies headache(s) and Denies weakness Psych Reports no additional complaints Endo Denies fatigue, Denies polydipsia, Denies polyuria and Denies palpitations Aller/Immun Denies seasonal rhinorrhea and Denies wheezing Physical exam (Primary Care) Vital Signs: Last Vital Signs Temp 98.0 F 03/26/24 10:13 Pulse 86 03/26/24 10:13 BP 128/82 03/26/24 10:13 Pulse Ox 98 03/26/24 10:13 Oxygen Delivery Method Room Air 03/26/24 10:13 BMI result Body Mass Index 29.2 Tobacco/Smoking Status: Tobacco use Status Tobacco use date assessed 03/26/24 03/26/24 10:27 Patient Tobacco Use Status Never used Tobacco 03/26/24 10:14 e-Cigarette/Vaping Use Never Used 03/26/24 10:14 PHQ-9: PHQ-9 Score PHQ-9: Total score 0 03/26/24 10:43 Thrive Assessment: Date of Thrive Assessment Date Thrive assessed 03/19/24 03/26/24 10:14 Currently or been in a relationship where the following occur: No concerns reported Const General: comfortable, no acute distress and alert Orientation/consciousness: patient oriented x3 HENMT Face and sinus: Yes face symmetric Throat: Yes posterior oropharynx normal Neck Neck: Yes full ROM, Yes no lymphadenopathy and Yes supple Thyroid: diffusely enlarged Resp Effort & Inspection: normal respiratory effort and able to speak in complete sentences Auscultation: clear to auscultation bilaterally Cardio Palpation: normal PMI Rate: regular rate Rhythm: regular rhythm Heart sounds: S1 normal heart sound present and S2 normal heart sound present GI Inspection: Yes normal to inspection Palpation (GI): Soft to palpation, nontender, no guarding and no masses Auscultation: normal bowel sounds Neuro General: patient oriented x3, gait normal, tone normal, moves all extremities, Normal light touch and pain sensation, no focal motor deficits and CN's II-XI intact bilaterally Extrem General: Yes full ROM, Yes no joint enlargement, Yes no pedal edema, Yes no calf tenderness and Yes normal gait Psych Appearance: grossly normal Mental Status: mental status grossly normal Speech and movement: Normal speech and movement present Affect: normal affect Attitude: cooperative Thought content: Normal thought content present Results Reviewed Results Reviewed: Laboratory Tests 02/09/24 09:44 TSH 0.62 Free T4 0.94 Coding Level of Care Code Est Pt Level 3 (67426) Diagnoses 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 blood pressure today is within normal limits Orders: Orders Basic Metabolic Panel Fasting 04/26/24 E06.3 - Autoimmune thyroiditis, E55.9 - Vitamin D deficiency, unspecified, E78.1 - Pure hyperglyceridemia, R03.0 - Evelyn vated blood-pressure reading, without diagnosis of hypertension, R73.01 - Impaired fasting glucose Hemoglobin and Hematocrit 04/26/24 E06.3 - Autoimmune thyroiditis, E55.9 - Vitamin D deficiency, unspecified, E78.1 - Pure hyperglyceridemia, R03.0 - Elevated blood-pressure reading, without diagnosis of hypertension, R73.01 - Impaired fasting glucose Lipid Panel 04/26/24 E06.3 - Autoimmune thyroiditis, E55.9 - Vitamin D deficiency, unspecified, E78.1 - Pure hyperglyceridemia, R03.0 - Elevated blood- pressure reading, without diagnosis of hypertension, R73.01 - Impaired fasting glucose Vitamin D 25-OH Total 04/26/24 E06.3 - Autoimmune thyroiditis, E55.9 - Vitamin D deficiency, unspecified, E78.1 - Pure hyperglyceridemia, R03.0 - Elevated blood-pressure reading, without diagnosis of hypertension, R73.01 - Impaired fasting glucose
--- OUTSIDE RECORDS SUMMARY | 2024-03-26 10:42 | XMS_ITS ---
Author Organization [facility] Address [address] [place] [address] Care Team Providers Care Lead Sql Developer Name Role Phone LIZ RACHEL Unavailable [phone] MEDICATIONS Medication SIG (Take, Route, Frequency, Duration) Notes Start Date End Date Status Mounjaro 5 MG/0.5ML 5mg Subcutaneous weekly for 90 days PA Approved 10/24/2022 to 10/24/2023 Active Encounters Encounter Location Date Provider Diagnosis [facility] [address] [address] 10/08/2023 LIZ RACHEL Overweight (BMI 25.0-29.9) E66.3 ; BMI 27.0-27.9,adult Z68.27 ; Dietary counseling and surveillance Z71.3 ; Prediabetes R73.03 and Acquired hypothyroidism E03.9 ASSESSMENTS Encounter Date Diagnosis Assessment Notes Treatment Notes Treatment Clinical Notes Section Notes 10/08/2023 Overweight (BMI 25.0-29.9) (ICD-10 - E66.3) #Weight Management 10/08/2023 Enjoy your trip to [facility] and happy birthday Plan is to [...] minimum of 6 months The most recent [place] [employer] clinical endocrinologists and [place] [employer] guidelines recommend patients who [...] track activity level. Consider using apps like TwtBks, myfitnesspal, lose it, stick as needed for self-monitoring and weight management. Consider group exercises. Consider hiring a personal banking advisor. Regular exercise is grace to sustainable health [...] counseling and psychiatry and Dr Sheffield at [facility]. We would like to cover regular topics [...] software and direct typing Please excuse inadvertent rn picu or typing errors, or uncorrected word substitutions Although every attempt has been made by the provider to proofread this document, occasional misspellings and typographical errors may still be present Due to the previous pandemic, and the use of personal protective equipment (PPE) This may decrease voice recognition accuracy Inadvertent rn picu errors may occur 10/08/2023 BMI 27.0-27.9,adult (ICD-10 - Z68.27) #Weight Management 10/08/2023 Enjoy your trip to [facility] and happy birthday Plan is to [...] minimum of 6 months The most recent [place] [employer] endocrinologists and [place] [employer] guidelines recommend patients who [...] track activity level. Consider using apps like TwtBks, myfitnesspal, lose it, stick as needed for self-monitoring and weight management. Consider group exercises. Consider hiring a personal banking advisor. Regular exercise is grace to sustainable health [...] counseling and psychiatry and Dr Sheffield at [facility]. We would like to cover regular topics [...] software and direct typing Please excuse inadvertent rn picu or typing errors, or uncorrected word substitutions Although every attempt has been made by the provider to proofread this document, occasional misspellings and typographical errors may still be present Due to the previous pandemic, and the use of personal protective equipment (PPE) This may decrease voice recognition accuracy Inadvertent rn picu errors may occur 10/08/2023 Dietary counseling and surveillance (ICD-10 - Z71.3) #Weight Management 10/08/2023 Enjoy your trip to [facility] and happy birthday Plan is to [...] minimum of 6 months The most recent [place] [employer]ocrinologists and [place] [employer] guidelines recommend patients who [...] track activity level. Consider using apps like TwtBks, myfitnesspal, lose it, stick as needed for self-monitoring and weight management. Consider group exercises. Consider hiring a personal banking advisor. Regular exercise is grace to sustainable health [...] counseling and psychiatry and Dr Sheffield at [facility]. We would like to cover regular topics [...] software and direct typing Please excuse inadvertent rn picu or typing errors, or uncorrected word substitutions Although every attempt has been made by the provider to proofread this document, occasional misspellings and typographical errors may still be present Due to the previous pandemic, and the use of personal protective equipment (PPE) This may decrease voice recognition accuracy Inadvertent rn picu errors may occur 10/08/2023 Prediabetes (ICD-10 - R73.03) #Weight Management 10/08/2023 Enjoy your trip to [facility] and happy birthday Plan is to [...] minimum of 6 months The most recent [place] [employer] endocrinologists and [place] [employer] guidelines recommend patients who [...] track activity level. Consider using apps like TwtBks, BlueStackspal, lose it, stick as needed for self-monitoring and weight management. Consider group exercises. Consider hiring a personal banking advisor. Regular exercise is grace to sustainable health [...] counseling and psychiatry and Dr Sheffield at [facility]. We would like to cover regular topics [...] software and direct typing Please excuse inadvertent rn picu or typing errors, or uncorrected word substitutions Although every attempt has been made by the provider to proofread this document, occasional misspellings and typographical errors may still be present Due to the previous pandemic, and the use of personal protective equipment (PPE) This may decrease voice recognition accuracy Inadvertent rn picu errors may occur 10/08/2023 Acquired hypothyroidism (ICD-10 - E03.9) #Weight Management 10/08/2023 Enjoy your trip to [facility] and happy birthday Plan is to [...] minimum of 6 months The most recent [place] [employer] endocrinologists and [place] [employer] guidelines recommend patients who [...] track activity level. Consider using apps like TwtBks, BlueStackspal, lose it, stick as needed for self-monitoring and weight management. Consider group exercises. Consider hiring a personal banking advisor. Regular exercise is grace to sustainable health [...] counseling and psychiatry and Dr Sheffield at [facility]. We would like to cover regular topics [...] software and direct typing Please excuse inadvertent rn picu or typing errors, or uncorrected word substitutions Although every attempt has been made by the provider to proofread this document, occasional misspellings and typographical errors may still be present Due to the previous pandemic, and the use of personal protective equipment (PPE) This may decrease voice recognition accuracy Inadvertent rn picu errors may occur PLAN OF TREATMENT Medication Medication Name Sig Start Date Stop Date Notes Mounjaro 5 MG/0.5ML 5mg Subcutaneous wee kly for 90 days PA Approved 10/24/2022 to 10/24/2023 Progress Notes * Sarah DOSHI eDOB:1975 (48 yo F)Acc No.[id number]:10/08/2023 Patient:??Lory DOSHI Provider:??LIZ RACHEL NP :1975?Age:48 Y?Sex:Fe male Date:10/08/2023 Address:[address], [address] [facility], [id number] Subjective: * Chief Complaints: * ? * HPI: ?Constitutional:? Patient is here today for a weight management f/u visit ?Patient seen and examined. ? Full past medical history, social history, family history, ?allergies and current medications were reviewed and updated. ?Body composition analysis reviewed today, as expected increased BMI, ?visceral adiposity, fat mass index, waist cirumference ?Good skeletal mass composition, Good water composition ?Caloric energy expenditure discussed ?#Weight Management ?10/08/2023 ?Patient is now on HNE, Recent insurance change ?now on Mounjaro for another 3 doses then likely will need to transition to [facility] ?Patient now on Mounjaro 5mg and thriving ?reached target goal weight , Now on maintenance dosing ?Injection day Saturdays ?Traveling to [facility] tomorrow for her 48th birthday likely will skip this week's dose ?happy with current dosage and progress thus far ?no significant side effects, minimal mausea, no constipation ?Discussed importance of protein consumption for muscle maintenance, ?strength and resistance training ? as well as probiotics, B12 complex biotin , iron ?and other nutrients, To also help avoid telogen effluvium while on weight loss meds such as GLP-1 ?*in offce hgb a1c 5.3, 12/15/2022 ?10/08/2023, Weight , BMI ?08/01/2023, Weight 152lbs , BMI 27 ?05/21/2023, Weight 144lbs , BMI 25 ?04/02/2023, Weight 143lbs , BMI 25, (-9lbs) ?02/20/2023, Weight 152lbs , BMI (-3lbs) ?12/15/2022: Weight 155lbs, BMI (-12lbs) ?09/29/2022: Weight lbs, 167lbs, BMI 30: ?Patient referred to us from sister, who is patient here. 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 ?Diet: grab and go, gluten allergy. not calorie counting/no portion controlling ?trialed weight watchers in past, did lose 5lbs ?Exercise: Currently not tracking, sedentary job, steps daily. ?Non-smoker. ?ETOH use: socially. * ROS:?All Other Systems:?Review of Systems (ROS)??All others negative except those mentioned in HPI.? * Medical History:?? Objective: * Examination: ?General Examination: ?GENERAL APPEARANCE:??in no acute distress, well developed, well nourished.??HEAD:??normocephalic, atraumatic.??EYES:??pupils equal, round, reactive to light and accommodation.??EARS:??normal.??ORAL CAVITY:??mucosa moist.??THROAT:??clear.??NECK/THYROID:??neck supple, full range of motion, no cervical lymphadenopathy.??SKIN:??no suspicious lesions, warm and dry.??HEART:??no murmurs, regular rate and rhythm, S1, S2 normal.??LUNGS:??clear to auscultation bilaterally.??ABDOMEN:??normal, bowel sounds present, soft, nontender, nondistended.??EXTREMITIES:??no clubbing, cyanosis, or edema.??NEUROLOGIC:??nonfocal, motor strength normal upper and lower extremities, sensory exam intact.? Assessment: * Assessment: 1.??Overweight (BMI 25.0-29. 9) - E66.3 (Primary)??2.??BMI 27.0-27.9,adult - Z68.27??3.??Dietary counseling and surveillance - Z71.3??4.??Prediabetes - R73.03??5.??Acquired hypothyroidism - E03.9?? #Weight Management 10/08/2023 Enjoy your trip to [facility] and happy birthday Plan is to [...] minimum of 6 months The most recent [place] [employer] of clinical endocrinologists and [place] [employer] guidelines recommend patients who [...] track activity level. Consider using apps like TwtBks, BlueStackspal, lose it, stick as needed for self-monitoring and weight management. Consider group exercises. Consider hiring a personal banking advisor. Regular exercise is grace to sustainable health [...] counseling and psychiatry and Dr Sheffield at [facility]. We would like to cover regular topics [...] software and direct typing Please excuse inadvertent rn picu or typing errors, or uncorrected word substitutions Although every attempt has been made by the provider to proofread this document, occasional misspellings and typographical errors may still be present Due to the previous pandemic, and the use of personal protective equipment (PPE) This may decrease voice recognition accuracy Inadvertent rn picu errors may occur. Plan: * Treatment: * Images: Billing Information: * Visit Code:?? * Procedure Codes:?? * Sign off status: Pending * Provider:??LIZ RACHEL NP Date:??09/26 History and Physical Notes * HPI (History [...] then likely will need to transition to [facility] Patient now on Mounjaro 5mg and thriving reached target goal weight , Now on maintenance dosing Injection day Saturdays Traveling to [facility] tomorrow for her 48th birthday likely [...] here. 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
--- OUTSIDE RECORDS SUMMARY | 2024-03-26 10:42 | XMS_ITS ---
Author Organization [facility] Address [address] [place] [address] Care Team Providers Care Trencher Driver Name Role Phone LIZ RACHEL Unavailable [phone] REASON FOR VISIT BILLING Encounters Encounter Location Date Provider Diagnosis [address] [address] 09/20/2023 LIZ RACHEL PLAN OF TREATMENT No Information Progress Notes * Sarah DOSHI eDOB:1975 (48 yo F)Acc No.[id number]:09/20/2023 Patient:??Lory DOSHI :1975?Age:48 Y?Sex:Fe male Address:[address] [place] [address] * true * Date:??
--- OUTSIDE RECORDS SUMMARY | 2024-03-26 10:42 | XMS_ITS | Patient Health Record ---
Author Organization [facility] Address [address] [place] [address] Care Team Providers [employer] Name Role Phone LIZ RACHEL Unavailable [phone] ALLERGIES No Known Allergies REASON FOR REFERRAL No Information MEDICATIONS Medication SIG (Take, Route, Frequency, Duration) Notes Start Date End Date Status Ondansetron 4 MG 1 tablet on the tongue and allow to dissolve prn nausea/vomiting Orally twice day for 30 days 08/08/2023 Active Zepbound 5 MG/0.5ML 5mg Subcutaneous weekly for 30 days 08/23/2023 Active Levothyroxine Sodium 50 MCG TAKE 1 TABLET BY MOUTH EVERY DAY Oral for 90 Days Active Mounjaro 5 MG/0.5ML 5mg Subcutaneous weekly for 90 days PA Approved 10/24/2022 to 10/24/2023 Active Albuterol Sulfate HFA 108 (90 Base) MCG/ACT Inhalation for 30 Days Active SOCIAL HISTORY Tobacco Use: Social History Observation Description Date Details (start date - stop date) Never Smoker NA - NA Sex Assigned At : Social History Observation Description Sex Assigned At Unknown Tobacco Use/Smoking Question Answer Notes Are you a nonsmoker Alcohol Screen (Audit-C) Question Answer Notes Did you have a drink contain ing alcohol in the past year? Yes How often did you have a dri nk containing alcohol in the past year? Monthly or less (1 point) Points 1 Interpretation Negative PROBLEMS Problem Type ICD Code Onset Dates Problem Status W/U Status Risk SNOMED Code Notes Problem Other obesity due to excess calories (E66.09) Active confirmed 238779756 Problem Acquired hypothyroidism (E03.9) Active confirmed 537635633 Problem Body mass index [BMI] 30.0-30.9, adult (Z68.30) Active confirmed 338703851 VITAL SIGNS Heart Rate 96 /min 05/21/2023 Oximetry 99 % 05/21/2023 Blood pressure diastolic 82 mm Hg 05/21/2023 Height 62 in 05/21/2023 Blood pressure systolic 124 mm Hg 05/21/2023 Weight 144 lbs 05/21/2023 BMI 26.34 kg/m2 05/21/2023 Encounters Encounter Location Date Provider Diagnosis [address] 03/29/2023 LIZ CHOWDHURYPAUL Acquired hypothyroid ism E03.9 ; Prediabetes R73.03 ; BMI 28.0-28.9,adult Z68.28 and Overweight (BMI 25.0-29.9) E66.3 [place] [address] 07/09/2023 LZI RACHEL Acquired hypothyroid ism E03.9 ; Prediabetes R73.03 ; BMI 25.0-25.9,adult Z68.25 and Dietary counseling and surveillance Z71.3 [place] [address] 10/08/2023 LIZ RACHEL Overweight (BMI 25.0-29.9) E66.3 ; BMI 27.0-27.9,adult Z68.27 ; Dietary counseling and surveillance Z71.3 ; Prediabetes R73.03 and Acquired hypothyroidism E03.9 [place] [address] 04/02/2023 LIZ RACHEL Acquired hypothyroid ism E03.9 ; Prediabetes R73.03 and BMI 25.0-25.9,adult Z68.[address] 05/21/2023 LIZ RACHEL Acquired hypothyroid ism E03.9 ; Prediabetes R73.03 and BMI 25.0-25.9,adult Z68.[address] [id number] 08/01/2023 LIZ RACHEL Overweight (BMI 25.0-29.9) E66.3 ; BMI 27.0-27.9,adult Z68.27 ; Dietary counseling and surveillance Z71.3 ; Prediabetes R73.03 and Acquired hypothyroidism E03.9 [facility] [address] [phone] [facility]20[facility] [address] [phone] 08/22/2023 [facility] [address] [facility] [address] [place] [address] 09/20/2023 LIZ MONTANO ASSESSMENTS Encounter Date Diagnosis Assessment Notes Treatment Notes Treatment Clinical Notes Section Notes 03/29/2023 Acquired hypothyroidism (ICD-10 - E03.9) *Patient with likely diabetes prediabetes, hypothyroidism We will track down labs patient will get us these labs She is rapidly approaching her target goal weight We did discuss maintenance dosing in the near future Total time spent today was 30 minutes of which greater than 50% was spent on coordinating and counseling Patient has been found to be obese with a BMI of (30). Patient has class (1) obesity. We are a board certified obesity and weight management practice Patient has trialed behavioral modification, dietary restrictions and exercise for a minimum of 6 months The most recent [place] [employer] clinical endocrinologists and [place] [employer] guidelines recommend patients who [...] track activity level. Consider using apps like Set.fm, iChangepal, lose it, stick as needed for self-monitoring and weight management. Consider group exercises. Consider hiring a human resources trainer. Regular exercise is grace to sustainable health [...] counseling and psychiatry and Dr Sheffield at [facility]. We would like to cover regular topics [...] software and direct typing Please excuse inadvertent mosquito sprayer or typing errors, or uncorrected word substitutions Although every attempt has been made by the provider to proofread this document, occasional misspellings and typographical errors may still be present Due to the previous pandemic, and the use of personal protective equipment (PPE) This may decrease voice recognition accuracy Inadvertent mosquito sprayer errors may occur 04/02/2023 Acquired hypothyroidism (ICD-10 - E03.9) We have asked for her to forward us her labs from [facility] including thyroid function She is thriving and has reached goal weight Discussed maintenance dosing moving forward Total time spent today was 30 minutes [...] minimum of 6 months The most recent [place] [employer] clinical endocrinologists and [place] [employer] guidelines recommend patients who [...] track activity level. Consider using apps like Set.fm, iChangepal, lose it, stick as needed for self-monitoring and weight management. Consider group exercises. Consider hiring a human resources trainer. Regular exercise is grace to sustainable health [...] counseling and psychiatry and Dr Sheffield at [facility]. We would like to cover regular topics [...] software and direct typing Please excuse inadvertent mosquito sprayer or typing errors, or uncorrected word substitutions Although every attempt has been made by the provider to proofread this document, occasional misspellings and typographical errors may still be present Due to the previous pandemic, and the use of personal protective equipment (PPE) This may decrease voice recognition accuracy Inadvertent mosquito sprayer errors may occur 05/21/2023 Acquired hypothyroidism (ICD-10 - E03.9) We discussed plans moving forward including our [...] minimum of 6 months The most recent [place] [employer] clinical endocrinologists and [place] [employer] guidelines recommend patients who [...] track activity level. Consider using apps like Set.fm, iChangepal, lose it, stick as needed for self-monitoring and weight management. Consider group exercises. Consider hiring a human resources trainer. Regular exercise is grace to sustainable health [...] counseling and psychiatry and Dr Sheffield at [facility]. We would like to cover regular topics [...] software and direct typing Please excuse inadvertent mosquito sprayer or typing errors, or uncorrected word substitutions Although every attempt has been made by the provider to proofread this document, occasional misspellings and typographical errors may still be present Due to the previous pandemic, and the use of personal protective equipment (PPE) This may decrease voice recognition accuracy Inadvertent mosquito sprayer errors may occur 07/09/2023 Acquired hypothyroidism (ICD-10 - E03.9) #Weight [...] minimum of 6 months The most recent [place] [employer] clinical endocrinologists and [place] [employer] guidelines recommend patients who [...] track activity level. Consider using apps like Set.fm, myfitnesspal, lose it, stick as needed for self-monitoring and weight management. Consider group exercises. Consider hiring a human resources trainer. Regular exercise is grace to sustainable health [...] counseling and psychiatry and Dr Sheffield at [facility]. We would like to cover regular topics [...] software and direct typing Please excuse inadvertent mosquito sprayer or typing errors, or uncorrected word substitutions Although every attempt has been made by the provider to proofread this document, occasional misspellings and typographical errors may still be present Due to the previous pandemic, and the use of personal protective equipment (PPE) This may decrease voice recognition accuracy Inadvertent mosquito sprayer errors may occur 08/01/2023 BMI 27.0-27.9,adult (ICD-10 - Z68.27) #Weight Management 08/01/2023 Enjoy your trip to [facility] and happy birthday Plan is to see if dual incretin's are covered under new plan if not which is unlikely Will transition her to [place] The patient is in agreement with this [...] minimum of 6 months The most recent [place] [employer] clinical endocrinologists and [place] [employer] guidelines recommend patients who [...] track activity level. Consider using apps like Set.fm, iChangepal, lose it, stick as needed for self-monitoring and weight management. Consider group exercises. Consider hiring a human resources trainer. Regular exercise is grace to sustainable health [...] counseling and psychiatry and Dr Sheffield at [facility]. We would like to cover regular topics [...] software and direct typing Please excuse inadvertent mosquito sprayer or typing errors, or uncorrected word substitutions Although every attempt has been made by the provider to proofread this document, occasional misspellings and typographical errors may still be present Due to the previous pandemic, and the use of personal protective equipment (PPE) This may decrease voice recognition accuracy Inadvertent mosquito sprayer errors may occur 08/01/2023 Overweight (BMI 25.0-29.9) (ICD-10 - E66.3) #Weight Management 08/01/2023 Enjoy your trip to [facility] and happy birthday Plan is to see [...] minimum of 6 months The most recent [place] [employer] clinical endocrinologists and [place] [employer] guidelines recommend patients who [...] track activity level. Consider using apps like Set.fm, iChangepal, lose it, stick as needed for self-monitoring and weight management. Consider group exercises. Consider hiring a human resources trainer. Regular exercise is grace to sustainable health [...] counseling and psychiatry and Dr Sheffield at [facility]. We would like to cover regular topics [...] software and direct typing Please excuse inadvertent mosquito sprayer or typing errors, or uncorrected word substitutions Although every attempt has been made by the provider to proofread this document, occasional misspellings and typographical errors may still be present Due to the previous pandemic, and the use of personal protective equipment (PPE) This may decrease voice recognition accuracy Inadvertent mosquito sprayer errors may occur 10/08/2023 Overweight (BMI 25.0-29.9) (ICD-10 - E66.3) #Weight Management 10/08/2023 Enjoy your trip to [facility] and happy birthday Plan is to see [...] minimum of 6 months The most recent [place] [employer] of clinical endocrinologists and [place] [employer] guidelines recommend patients who [...] track activity level. Consider using apps like Set.fm, iChangepal, lose it, stick as needed for self-monitoring and weight management. Consider group exercises. Consider hiring a human resources trainer. Regular exercise is grace to sustainable health [...] counseling and psychiatry and Dr Sheffield at [facility]. We would like to cover regular topics [...] software and direct typing Please excuse inadvertent mosquito sprayer or typing errors, or uncorrected word substitutions Although every attempt has been made by the provider to proofread this document, occasional misspellings and typographical errors may still be present Due to the previous pandemic, and the use of personal protective equipment (PPE) This may decrease voice recognition accuracy Inadvertent mosquito sprayer errors may occur 10/08/2023 BMI 27.0-27.9,adult (ICD-10 - Z68.27) #Weight Management 10/08/2023 Enjoy your trip to [facility] and happy birthday Plan is to see [...] minimum of 6 months The most recent [place] [employer] of clinical endocrinologists and [place] [employer]in[employer] guidelines recommend patients who [...] books called The Food Rules by Segundo Mejai and Eat Fat Get Lean by Dr [...] track activity level. Consider using apps like Set.fm, myfitnesspal, lose it, stick as needed for self-monitoring and weight management. Consider group exercises. Consider hiring a human resources trainer. Regular exercise is grace to sustainable health [...] counseling and psychiatry and Dr Sheffield at [facility]. We would like to cover regular topics [...] software and direct typing Please excuse inadvertent mosquito sprayer or typing errors, or uncorrected word substitutions Although every attempt has been made by the provider to proofread this document, occasional misspellings and typographical errors may still be present Due to the previous pandemic, and the use of personal protective equipment (PPE) This may decrease voice recognition accuracy Inadvertent mosquito sprayer errors may occur 08/01/2023 Dietary counseling and surveillance (ICD-10 - Z71.3) #Weight Management 08/01/2023 Enjoy your trip to [facility] and happy birthday Plan is to see [...] minimum of 6 months The most recent [place] [employer] clinical endocrinologists and [place] [employer]in[employer] guidelines recommend patients who [...] track activity level. Consider using apps like Set.fm, [employer] Computing[employer]itnesspal, lose it, stick as needed for self-monitoring and weight management. Consider group exercises. Consider hiring a human resources trainer. Regular exercise is grace to sustainable health [...] counseling and psychiatry and Dr Sheffield at [facility]. We would like to cover regular topics [...] software and direct typing Please excuse inadvertent mosquito sprayer or typing errors, or uncorrected word substitutions Although every attempt has been made by the provider to proofread this document, occasional misspellings and typographical errors may still be present Due to the previous pandemic, and the use of personal protective equipment (PPE) This may decrease voice recognition accuracy Inadvertent mosquito sprayer errors may occur 05/21/2023 Prediabetes (ICD-10 - R73.03) We discussed plans moving forward including our [...] minimum of 6 months The most recent [place] [employer] of clinical endocrinologists and [place] [employer]in[employer] guidelines recommend patients who [...] track activity level. Consider using apps like Set.fm, iChangepal, lose it, stick as needed for self-monitoring and weight management. Consider group exercises. Consider hiring a human resources trainer. Regular exercise is grace to sustainable health [...] counseling and psychiatry and Dr Sheffield at [facility]. We would like to cover regular topics [...] software and direct typing Please excuse inadvertent mosquito sprayer or typing errors, or uncorrected word substitutions Although every attempt has been made by the provider to proofread this document, occasional misspellings and typographical errors may still be present Due to the previous pandemic, and the use of personal protective equipment (PPE) This may decrease voice recognition accuracy Inadvertent mosquito sprayer errors may occur 07/09/2023 Prediabetes (ICD-10 - [...] minimum of 6 months The most recent [place] [employer] clinical endocrinologists and [place] [employer]in[employer] guidelines recommend patients who [...] track activity level. Consider using apps like Set.fm, iChangepal, lose it, stick as needed for self-monitoring and weight management. Consider group exercises. Consider hiring a human resources trainer. Regular exercise is grace to sustainable health [...] counseling and psychiatry and Dr Sheffield at [facility]. We would like to cover regular topics [...] software and direct typing Please excuse inadvertent mosquito sprayer or typing errors, or uncorrected word substitutions Although every attempt has been made by the provider to proofread this document, occasional misspellings and typographical errors may still be present Due to the previous pandemic, and the use of personal protective equipment (PPE) This may decrease voice recognition accuracy Inadvertent mosquito sprayer errors may occur 03/29/2023 Prediabetes (ICD-10 - R73.03) *Patient with likely diabetes prediabetes, hypothyroidism We will track down labs patient will get us these labs She is rapidly approaching her target goal weight We did discuss maintenance dosing in the near future Total time spent today was 30 minutes of which greater than 50% was spent on coordinating and counseling Patient has been found to be obese with a BMI of (30). Patient has class (1) obesity. We are a board certified obesity and weight management practice Patient has trialed behavioral modification, dietary restrictions and exercise for a minimum of 6 months The most recent [place] [employer] of clinical endocrinologists and [place] [employer]in[employer] guidelines recommend patients who [...] track activity level. Consider using apps like Set.fm, iChangepal, lose it, stick as needed for self-monitoring and weight management. Consider group exercises. Consider hiring a human resources trainer. Regular exercise is grace to sustainable health [...] counseling and psychiatry and Dr Sheffield at [facility]. We would like to cover regular topics [...] software and direct typing Please excuse inadvertent mosquito sprayer or typing errors, or uncorrected word substitutions Although every attempt has been made by the provider to proofread this document, occasional misspellings and typographical errors may still be present Due to the previous pandemic, and the use of personal protective equipment (PPE) This may decrease voice recognition accuracy Inadvertent mosquito sprayer errors may occur 04/02/2023 Prediabetes (ICD-10 - R73.03) We have asked for her to forward us her labs from [facility] including thyroid function She is thriving and has reached goal weight Discussed maintenance dosing moving forward Total time spent today was 30 minutes [...] minimum of 6 months The most recent [place] [employer] of clinical endocrinologists and [place] [employer] end[employer]in[employer] guidelines recommend patients who [...] track activity level. Consider using apps like Set.fm, iChangepal, lose it, stick as needed for self-monitoring and weight management. Consider group exercises. Consider hiring a human resources trainer. Regular exercise is grace to sustainable health [...] counseling and psychiatry and Dr Sheffield at [facility]. We would like to cover regular topics [...] software and direct typing Please excuse inadvertent mosquito sprayer or typing errors, or uncorrected word substitutions Although every attempt has been made by the provider to proofread this document, occasional misspellings and typographical errors may still be present Due to the previous pandemic, and the use of personal protective equipment (PPE) This may decrease voice recognition accuracy Inadvertent mosquito sprayer errors may occur 04/02/2023 BMI 25.0-25.9,adult (ICD-10 - Z68.25) We have asked for her to forward us her labs from [facility] including thyroid function She is thriving and has reached goal weight Discussed maintenance dosing moving forward Total time spent today was 30 minutes [...] minimum of 6 months The most recent [place] [employer] of clinical endocrinologists and [place] [employer]in[employer] guidelines recommend patients who [...] track activity level. Consider using apps like Set.fm, myfitPPG Industriespal, lose it, stick as needed for self-monitoring and weight management. Consider group exercises. Consider hiring a human resources trainer. Regular exercise is grace to sustainable health [...] counseling and psychiatry and Dr Sheffield at [facility]. We would like to cover regular topics [...] software and direct typing Please excuse inadvertent mosquito sprayer or typing errors, or uncorrected word substitutions Although every attempt has been made by the provider to proofread this document, occasional misspellings and typographical errors may still be present Due to the previous pandemic, and the use of personal protective equipment (PPE) This may decrease voice recognition accuracy Inadvertent mosquito sprayer errors may occur 03/29/2023 BMI 28.0-28.9,adult (ICD-10 - Z68.28) *Patient with likely diabetes prediabetes, hypothyroidism We will track down labs patient will get us these labs She is rapidly approaching her target goal weight We did discuss maintenance dosing in the near future Total time spent today was 30 minutes of which greater than 50% was spent on coordinating and counseling Patient has been found to be obese with a BMI of (30). Patient has class (1) obesity. We are a board certified obesity and weight management practice Patient has trialed behavioral modification, dietary restrictions and exercise for a minimum of 6 months The most recent [place] [employer] of clinical endocrinologists and [place] [employer]in[employer] guidelines recommend patients who [...] track activity level. Consider using apps like Set.fm, myfitnesspal, lose it, stick as needed for self-monitoring and weight management. Consider group exercises. Consider hiring a human resources trainer. Regular exercise is grace to sustainable health [...] counseling and psychiatry and Dr Sheffield at [facility]. We would like to cover regular topics [...] software and direct typing Please excuse inadvertent mosquito sprayer or typing errors, or uncorrected word substitutions Although every attempt has been made by the provider to proofread this document, occasional misspellings and typographical errors may still be present Due to the previous pandemic, and the use of personal protective equipment (PPE) This may decrease voice recognition accuracy Inadvertent mosquito sprayer errors may occur 05/21/2023 BMI 25.0-25.9,adult (ICD-10 - Z68.25) We discussed plans moving forward including our [...] minimum of 6 months The most recent [place] [employer] of clinical endocrinologists and [place] [employer]in[employer] guidelines recommend patients who [...] track activity level. Consider using apps like Set.fm, iChangepal, lose it, stick as needed for self-monitoring and weight management. Consider group exercises. Consider hiring a human resources trainer. Regular exercise is grace to sustainable health [...] counseling and psychiatry and Dr Sheffield at [facility]. We would like to cover regular topics [...] software and direct typing Please excuse inadvertent mosquito sprayer or typing errors, or uncorrected word substitutions Although every attempt has been made by the provider to proofread this document, occasional misspellings and typographical errors may still be present Due to the previous pandemic, and the use of personal protective equipment (PPE) This may decrease voice recognition accuracy Inadvertent mosquito sprayer errors may occur 08/01/2023 Prediabetes (ICD-10 - R73.03) #Weight Management 08/01/2023 Enjoy your trip to [facility] and happy birthday Plan is to see [...] minimum of 6 months The most recent [place] [employer] of clinical endocrinologists and [place] [employer] guidelines recommend patients who [...] track activity level. Consider using apps like Set.fm, myfitnesspal, lose it, stick as needed for self-monitoring and weight management. Consider group exercises. Consider hiring a human resources trainer. Regular exercise is grace to sustainable health [...] counseling and psychiatry and Dr Sheffield at [facility]. We would like to cover regular topics [...] software and direct typing Please excuse inadvertent mosquito sprayer or typing errors, or uncorrected word substitutions Although every attempt has been made by the provider to proofread this document, occasional misspellings and typographical errors may still be present Due to the previous pandemic, and the use of personal protective equipment (PPE) This may decrease voice recognition accuracy Inadvertent mosquito sprayer errors may occur 07/09/2023 BMI 25.0-25.9,adult (ICD-10 [...] minimum of 6 months The most recent [place] [employer] of clinical endocrinologists and [place] [employer] endocrin[employer] guidelines recommend patients who [...] track activity level. Consider using apps like Set.fm, my[employer]pal, lose it, stick as needed for self-monitoring and weight management. Consider group exercises. Consider hiring a human resources trainer. Regular exercise is grace to sustainable health [...] counseling and psychiatry and Dr Sheffield at [facility]. We would like to cover regular topics [...] software and direct typing Please excuse inadvertent mosquito sprayer or typing errors, or uncorrected word substitutions Although every attempt has been made by the provider to proofread this document, occasional misspellings and typographical errors may still be present Due to the previous pandemic, and the use of personal protective equipment (PPE) This may decrease voice recognition accuracy Inadvertent mosquito sprayer errors may occur 10/08/2023 Dietary counseling and surveillance (ICD-10 - Z71.3) #Weight Management 10/08/2023 Enjoy your trip to [facility] and happy birthday Plan is to see [...] minimum of 6 months The most recent [place] [employer] of clinical endocrinologists and [place] [employer] endocrin[employer] guidelines recommend patients who [...] track activity level. Consider using apps like Set.fm, iChangepal, lose it, stick as needed for self-monitoring and weight management. Consider group exercises. Consider hiring a human resources trainer. Regular exercise is grace to sustainable health [...] counseling and psychiatry and Dr Sheffield at [facility]. We would like to cover regular topics [...] software and direct typing Please excuse inadvertent mosquito sprayer or typing errors, or uncorrected word substitutions Although every attempt has been made by the provider to proofread this document, occasional misspellings and typographical errors may still be present Due to the previous pandemic, and the use of personal protective equipment (PPE) This may decrease voice recognition accuracy Inadvertent mosquito sprayer errors may occur 10/08/2023 Prediabetes (ICD-10 - R73.03) #Weight Management 10/08/2023 Enjoy your trip to [facility] and happy birthday Plan is to see [...] minimum of 6 months The most recent [place] [employer] of clinical endocrinologists and [place] [employer] endocrin[employer] guidelines recommend patients who [...] track activity level. Consider using apps like Set.fm, myfitnesspal, lose it, stick as needed for self-monitoring and weight management. Consider group exercises. Consider hiring a human resources trainer. Regular exercise is grace to sustainable health [...] counseling and psychiatry and Dr Sheffield at [facility]. We would like to cover regular topics [...] software and direct typing Please excuse inadvertent mosquito sprayer or typing errors, or uncorrected word substitutions Although every attempt has been made by the provider to proofread this document, occasional misspellings and typographical errors may still be present Due to the previous pandemic, and the use of personal protective equipment (PPE) This may decrease voice recognition accuracy Inadvertent mosquito sprayer errors may occur 08/01/2023 Acquired hypothyroidism (ICD-10 - E03.9) #Weight Management 08/01/2023 Enjoy your trip to [facility] and happy birthday Plan is to see if dual incretin's are covered under new plan if not which is unlikely Will transition her to [place] The patient is in agreement with this [...] minimum of 6 months The most recent [place] [employer] of clinical endocrinologists and [place] [employer] of endocrin[employer] guidelines recommend patients who [...] track activity level. Consider using apps like Set.fm, iChangepal, lose it, stick as needed for self-monitoring and weight management. Consider group exercises. Consider hiring a human resources trainer. Regular exercise is grace to sustainable health [...] counseling and psychiatry and Dr Sheffield at [facility]. We would like to cover regular topics [...] software and direct typing Please excuse inadvertent mosquito sprayer or typing errors, or uncorrected word substitutions Although every attempt has been made by the provider to proofread this document, occasional misspellings and typographical errors may still be present Due to the previous pandemic, and the use of personal protective equipment (PPE) This may decrease voice recognition accuracy Inadvertent mosquito sprayer errors may occur 07/09/2023 Dietary counseling and [...] minimum of 6 months The most recent [place] [employer] of clinical endocrinologists and [place] [employer] of endocrinology guidelines recommend patients who [...] track activity level. Consider using apps like Set.fm, myfitnesspal, lose it, stick as needed for self-monitoring and weight management. Consider group exercises. Consider hiring a human resources trainer. Regular exercise is grace to sustainable health [...] counseling and psychiatry and Dr Sheffield at [facility]. We would like to cover regular topics [...] software and direct typing Please excuse inadvertent mosquito sprayer or typing errors, or uncorrected word substitutions Although every attempt has been made by the provider to proofread this document, occasional misspellings and typographical errors may still be present Due to the previous pandemic, and the use of personal protective equipment (PPE) This may decrease voice recognition accuracy Inadvertent mosquito sprayer errors may occur 03/29/2023 Overweight (BMI 25.0-29.9) (ICD-10 - E66.3) *Patient with likely diabetes prediabetes, hypothyroidism We will track down labs patient will get us these labs She is rapidly approaching her target goal weight We did discuss maintenance dosing in the near future Total time spent today was 30 minutes of which greater than 50% was spent on coordinating and counseling Patient has been found to be obese with a BMI of (30). Patient has class (1) obesity. We are a board certified obesity and weight management practice Patient has trialed behavioral modification, dietary restrictions and exercise for a minimum of 6 months The most recent [place] [employer] of clinical endocrinologists and [place] [employer] of endocrinology guidelines recommend patients who [...] track activity level. Consider using apps like Set.fm, iChangepal, lose it, stick as needed for self-monitoring and weight management. Consider group exercises. Consider hiring a human resources trainer. Regular exercise is grace to sustainable health [...] counseling and psychiatry and Dr Sheffield at [facility]. We would like to cover regular topics [...] software and direct typing Please excuse inadvertent mosquito sprayer or typing errors, or uncorrected word substitutions Although every attempt has been made by the provider to proofread this document, occasional misspellings and typographical errors may still be present Due to the previous pandemic, and the use of personal protective equipment (PPE) This may decrease voice recognition accuracy Inadvertent mosquito sprayer errors may occur 10/08/2023 Acquired hypothyroidism (ICD-10 - E03.9) #Weight Management 10/08/2023 Enjoy your trip to [facility] and happy birthday Plan is to see [...] minimum of 6 months The most recent [place] Association of clinical endocrinologists and [place] [employer] of endocrinology guidelines recommend patients who [...] track activity level. Consider using apps like Set.fm, [employer], lose it, stick as needed for self-monitoring and weight management. Consider group exercises. Consider hiring a human resources trainer. Regular exercise is grace to sustainable health [...] counseling and psychiatry and Dr Sheffield at [facility]. We would like to cover regular topics [...] software and direct typing Please excuse inadvertent mosquito sprayer or typing errors, or uncorrected word substitutions Although every attempt has been made by the provider to proofread this document, occasional misspellings and typographical errors may still be present Due to the previous pandemic, and the use of personal protective equipment (PPE) This may decrease voice recognition accuracy Inadvertent mosquito sprayer errors may occur PLAN OF TREATMENT No Information Insurance Providers Payer Name Payer Address Payer Phone Subscriber Number Group Number Insured Name Patient Relationship to Insured Coverage Start Date Coverage End Date [employer] [address] [facility] [id number] Lory Doshi Self - patient is the insured 4 MEDICAL (GENERAL) HISTORY Medical History History ICD Code thyroid disease Surgical History Surgery Date(Month/Year) section 12/31/2012
--- OUTSIDE RECORDS SUMMARY | 2024-03-26 10:42 | XMS_ITS ---
Author Organization [facility] Address [address] [place] [address] Care Team Providers Care Relay Worker Name Role Phone LUCIANAPAUL LIZ Unavailable [phone] REASON FOR VISIT mounjaro-zepbound MEDICATIONS Medication SIG (Take, Route, Fr equency, Duration) Notes Start Date End Date Status Zepbound 5 MG/0.5ML 5mg Subcutaneous wee kly for 30 days 08/23/2023 Active Encounters Encounter Location Date Provider Diagnosis [facility] [address] [address] 08/22/2023 LIZ RACHEL PLAN OF TREATMENT Medication Medication Name Sig Start Date Stop Date Notes Zepbound 5 MG/0.5ML 5mg Subcutaneous weekly for 30 days Progress Notes * Sarah DOSHI eDOB:1975 (48 yo F)Acc No.[id number]:08/22/2023 Patient:??Lory DOSHI :1975?Age:48 Y?Sex:Fe male Address:[address] [place] [address] * Refills?? Start Zepbound Solution Auto-injector, 5 MG/0.5ML, Subcutaneous, 4 Pen Needle, 5mg, weekly, 30 days, Refills=0 * true * Date:??
== END 2024-03-26 10:55 | disposition home or self-care (01) ==
PROVIDERS: PCP Internal Medicine; Visit Provider Internal Medicine
DX: E06.3 Autoimmune thyroiditis (principal)

== ENCOUNTER → 2024-03-26 09:14 | Outpatient (BNVA) | payer OTHER, SELFPAY | PROVIDERS: PCP Internal Medicine; Visit Provider Internal Medicine ==

== ENCOUNTER 2024-05-13 07:05 | Outpatient (REF) | payer OTHER, SELFPAY ==
--- OUTSIDE RECORDS SUMMARY | 2024-05-13 07:09 | XMS_ITS ---
Author Organization [facility] Address [address] [place] [address] Care Team Providers Care Program Aide Group Work Name Role Phone LIZ RACHEL Unavailable [phone] MEDICATIONS Medication SIG (Take, Route, Frequency, Duration) Notes Start Date End Date Status Mounjaro 5 MG/0.5ML 5mg Subcutaneous weekly for 90 days PA Approved 10/24/2022 to 10/24/2023 Active Encounters Encounter Location Date Provider Diagnosis [facility] [address] [address] 10/08/2023 LIZ RACHEL Overweight (BMI 25.0-29.9) E66.3 ; BMI 27.0-27.9,adult Z68.27 ; Dietary counseling and surveillance Z71.3 ; Prediabetes R73.03 and Acquired hypothyroidism E03.9 ASSESSMENTS Encounter Date Diagnosis Assessment Notes Treatment Notes Treatment Clinical Notes Section Notes 10/08/2023 Overweight (BMI 25.0-29.9) (ICD-10 - E66.3) #Weight Management 10/08/2023 Enjoy your trip to [facility] and happy birthday Plan is to see [...] minimum of 6 months The most recent [place] [employer] of clinical endocrinologists and [place] [employer] of endocrinology guidelines recommend patients who [...] track activity level. Consider using apps like [employer], myfitnesspal, lose it, stick as needed for self-monitoring and weight management. Consider group exercises. Consider hiring a geriatric personal care aide. Regular exercise is grace to sustainable health [...] counseling and psychiatry and Dr Sheffield at [facility]. We would like to cover regular topics [...] software and direct typing Please excuse inadvertent dental laboratory supervisor or typing errors, or uncorrected word substitutions Although every attempt has been made by the provider to proofread this document, occasional misspellings and typographical errors may still be present Due to the previous pandemic, and the use of personal protective equipment (PPE) This may decrease voice recognition accuracy Inadvertent dental laboratory supervisor errors may occur 10/08/2023 BMI 27.0-27.9,adult (ICD-10 - Z68.27) #Weight Management 10/08/2023 Enjoy your trip to [facility] and happy birthday Plan is to see [...] minimum of 6 months The most recent [place] [employer] of clinical endocrinologists and [place] [employer] of endocrinology guidelines recommend patients who [...] track activity level. Consider using apps like [employer], myfitnesspal, lose it, stick as needed for self-monitoring and weight management. Consider group exercises. Consider hiring a geriatric personal care aide. Regular exercise is grace to sustainable health [...] counseling and psychiatry and Dr Sheffield at [facility]. We would like to cover regular topics [...] software and direct typing Please excuse inadvertent dental laboratory supervisor or typing errors, or uncorrected word substitutions Although every attempt has been made by the provider to proofread this document, occasional misspellings and typographical errors may still be present Due to the previous pandemic, and the use of personal protective equipment (PPE) This may decrease voice recognition accuracy Inadvertent dental laboratory supervisor errors may occur 10/08/2023 Dietary counseling and surveillance (ICD-10 - Z71.3) #Weight Management 10/08/2023 Enjoy your trip to [facility] and happy birthday Plan is to see [...] minimum of 6 months The most recent [place] [employer] of clinical endocrinologists and [place] [employer] of endocrinology guidelines recommend patients who [...] track activity level. Consider using apps like [employer], myfitnesspal, lose it, stick as needed for self-monitoring and weight management. Consider group exercises. Consider hiring a geriatric personal care aide. Regular exercise is grace to sustainable health [...] counseling and psychiatry and Dr Sheffield at [facility]. We would like to cover regular topics [...] software and direct typing Please excuse inadvertent dental laboratory supervisor or typing errors, or uncorrected word substitutions Although every attempt has been made by the provider to proofread this document, occasional misspellings and typographical errors may still be present Due to the previous pandemic, and the use of personal protective equipment (PPE) This may decrease voice recognition accuracy Inadvertent dental laboratory supervisor errors may occur 10/08/2023 Prediabetes (ICD-10 - R73.03) #Weight Management 10/08/2023 Enjoy your trip to [facility] and happy birthday Plan is to see [...] minimum of 6 months The most recent [place] [employer] of clinical endocrinologists and [place] [employer] of endocrinology guidelines recommend patients who [...] track activity level. Consider using apps like [employer], [employer], lose it, stick as needed for self-monitoring and weight management. Consider group exercises. Consider hiring a geriatric personal care aide. Regular exercise is grace to sustainable health [...] counseling and psychiatry and Dr Sheffield at [facility]. We would like to cover regular topics [...] software and direct typing Please excuse inadvertent dental laboratory supervisor or typing errors, or uncorrected word substitutions Although every attempt has been made by the provider to proofread this document, occasional misspellings and typographical errors may still be present Due to the previous pandemic, and the use of personal protective equipment (PPE) This may decrease voice recognition accuracy Inadvertent dental laboratory supervisor errors may occur 10/08/2023 Acquired hypothyroidism (ICD-10 - E03.9) #Weight Management 10/08/2023 Enjoy your trip to [facility] and happy birthday Plan is to see [...] minimum of 6 months The most recent [place] [employer] of clinical endocrinologists and [place] [employer] of endocrinology guidelines recommend patients who [...] track activity level. Consider using apps like [employer], [employer], lose it, stick as needed for self-monitoring and weight management. Consider group exercises. Consider hiring a geriatric personal care aide. Regular exercise is grace to sustainable health [...] counseling and psychiatry and Dr Sheffield at [facility]. We would like to cover regular topics [...] software and direct typing Please excuse inadvertent dental laboratory supervisor or typing errors, or uncorrected word substitutions Although every attempt has been made by the provider to proofread this document, occasional misspellings and typographical errors may still be present Due to the previous pandemic, and the use of personal protective equipment (PPE) This may decrease voice recognition accuracy Inadvertent dental laboratory supervisor errors may occur PLAN OF TREATMENT Medication Medication Name Sig Start Date Stop Date Notes Mounjaro 5 MG/0.5ML 5mg Subcutaneous wee kly for 90 days PA Approved 10/24/2022 to 10/24/2023 Progress Notes * Sarah DOSHI eDOB:1975 (48 yo F)Acc No.[id number]:10/08/2023 Patient:??Lory DOSHI Provider:??LIZ RACHEL NP :1975?Age:48 Y?Sex:Fe male Date:10/08/2023 Address:[address], [facility], [id number] Subjective: * Chief Complaints: * ? * [...] maintenance dosing ?Injection day Saturdays ?Traveling to [facility] tomorrow for her 48th birthday likely will [...] from sister, who is patient here. 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 Consider using apps like [employer], [employer], lose it, stick as needed for self-monitoring and weight management. Consider group exercises. Consider hiring a geriatric personal care aide. Regular exercise is grace to sustainable health [...] counseling and psychiatry and Dr Sheffield at [facility]. We would like to cover regular topics [...] software and direct typing Please excuse inadvertent dental laboratory supervisor or typing errors, or uncorrected word substitutions Although every attempt has been made by the provider to proofread this document, occasional misspellings and typographical errors may still be present Due to the previous pandemic, and the use of personal protective equipment (PPE) This may decrease voice recognition accuracy Inadvertent dental laboratory supervisor errors may occur. Plan: * Treatment: * [...] then likely will need to transition to [facility] Patient now on Mounjaro 5mg and thriving reached target goal weight , Now on maintenance dosing Injection day Saturdays Traveling to [facility] tomorrow for her 48th birthday likely will [...] here. 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
--- OUTSIDE RECORDS SUMMARY | 2024-05-13 07:09 | XMS_ITS ---
Author Organization [facility] Address [address] [place] [address] Care Team Providers Care Assembler Molded Frames Name Role Phone LUCIANAPAUL LIZ Unavailable [phone] REASON FOR VISIT mounjaro-zepbound MEDICATIONS Medication SIG (Take, Route, Fr equency, Duration) Notes Start Date End Date Status Zepbound 5 MG/0.5ML 5mg Subcutaneous wee kly for 30 days 08/23/2023 Active Encounters Encounter Location Date Provider Diagnosis [facility] [address] [address] 08/22/2023 LIZ RACHEL PLAN OF TREATMENT Medication Medication Name Sig Start Date Stop Date Notes Zepbound 5 MG/0.5ML 5mg Subcutaneous weekly for 30 days Progress Notes * Sarah DOSHI eDOB:1975 (48 yo F)Acc No.[id number]:08/22/2023 Patient:??Lory DOSHI :1975?Age:48 Y?Sex:Fe male Address:[address] [place] [address] * Refills?? Start Zepbound Solution Auto-injector, 5 MG/0.5ML, Subcutaneous, 4 Pen Needle, 5mg, weekly, 30 days, Refills=0 * true * Date:??
--- OUTSIDE RECORDS SUMMARY | 2024-05-13 07:09 | XMS_ITS | Patient Health Record ---
Author Organization [facility] Address [address] [place] [address] Care Team Providers Care Assembler Wet Wash Name Role Phone LIZ RACHEL Unavailable [phone] ALLERGIES No Known Allergies REASON FOR REFERRAL [...] due to excess calories (E66.09) Active confirmed 115362381 Problem Acquired hypothyroidism (E03.9) Active confirmed 149441988 Problem Body mass index [BMI] 30.0-30.9, adult (Z68.30) Active confirmed [id number] VITAL SIGNS Heart Rate 96 /min 05/21/2023 Blood pressure diastolic 82 mm Hg 05/21/2023 Oximetry 99 % 05/21/2023 Height 62 in 05/21/2023 Blood pressure systolic 124 mm Hg 05/21/2023 Weight 144 lbs 05/21/2023 BMI 26.34 kg/m2 05/21/2023 Encounters Encounter Location Date Provider Diagnosis [place] [id number] [address] 07/09/2023 LIZ RACHEL Acquired hypothyroid ism E03.9 ; Prediabetes R73.03 ; BMI 25.0-25.9,adult Z68.25 and Dietary counseling and surveillance Z71.3 [place] [address] [address] 10/08/2023 LIZ RACHEL Overweight (BMI 25.0-29.9) E66.3 ; BMI 27.0-27.9,adult Z68.27 ; Dietary counseling and surveillance Z71.3 ; Prediabetes R73.03 and Acquired hypothyroidism E03.9 [place] [address] 05/21/2023 LIZ RACHEL Acquired hypothyroid ism E03.9 ; Prediabetes R73.03 and BMI 25.0-25.9,adult Z68.25 [place] [address] [address] 08/01/2023 LIZ RACHEL Overweight (BMI 25.0-29.9) E66.3 ; BMI 27.0-27.9,adult Z68.27 ; Dietary counseling and surveillance Z71.3 ; Prediabetes R73.03 and Acquired hypothyroidism E03.9 [place] [address] 08/08/2023 LIZ RACHEL [place] [address] [address] 08/22/2023 LIZ RACHEL [address] [address] 09/20/2023 LIZ RACHEL ASSESSMENTS Encounter Date Diagnosis Assessment Notes Treatment Notes Treatment Clinical Notes Section Notes 05/21/2023 Acquired hypothyroidism (ICD-10 - E03.9) We [...] minimum of 6 months The most recent [place] [employer] clinical endocrinologists and [place] [employer]in[employer] guidelines recommend patients who [...] track activity level. Consider using apps like Sporterpilot, Project 2020pal, lose it, stick as needed for self-monitoring and weight management. Consider group exercises. Consider hiring a emr trainer. Regular exercise is grace to sustainable [...] counseling and psychiatry and Dr Sheffield at [facility]. We would like to cover regular topics [...] software and direct typing Please excuse inadvertent director surgical or typing errors, or uncorrected word substitutions Although every attempt has been made by the provider to proofread this document, occasional misspellings and typographical errors may still be present Due to the previous pandemic, and the use of personal protective equipment (PPE) This may decrease voice recognition accuracy Inadvertent director surgical errors may occur 07/09/2023 Acquired hypothyroidism (ICD-10 [...] minimum of 6 months The most recent [place] [employer] clinical endocrinologists and [place] [employer] end[employer]in[employer] guidelines recommend patients who [...] track activity level. Consider using apps like Sporterpilot, Bid NerdfitVerisante Technologypal, lose it, stick as needed for self-monitoring and weight management. Consider group exercises. Consider hiring a emr trainer. Regular exercise is grace to sustainable [...] counseling and psychiatry and Dr Sheffield at [facility]. We would like to cover regular topics [...] software and direct typing Please excuse inadvertent director surgical or typing errors, or uncorrected word substitutions Although every attempt has been made by the provider to proofread this document, occasional misspellings and typographical errors may still be present Due to the previous pandemic, and the use of personal protective equipment (PPE) This may decrease voice recognition accuracy Inadvertent director surgical errors may occur 08/01/2023 BMI 27.0-27.9,adult (ICD-10 - Z68.27) #Weight Management 08/01/2023 Enjoy your trip to [facility] and happy birthday Plan is to [...] minimum of 6 months The most recent [place] [employer] clinical endocrinologists and [place] [employer] end[employer]in[employer] guidelines recommend patients who [...] track activity level. Consider using apps like Sporterpilot, Project 2020pal, lose it, stick as needed for self-monitoring and weight management. Consider group exercises. Consider hiring a emr trainer. Regular exercise is grace to sustainable [...] counseling and psychiatry and Dr Sheffield at [facility]. We would like to cover regular topics [...] software and direct typing Please excuse inadvertent director surgical or typing errors, or uncorrected word substitutions Although every attempt has been made by the provider to proofread this document, occasional misspellings and typographical errors may still be present Due to the previous pandemic, and the use of personal protective equipment (PPE) This may decrease voice recognition accuracy Inadvertent director surgical errors may occur 08/01/2023 Overweight (BMI 25.0-29.9) (ICD-10 - E66.3) #Weight Management 08/01/2023 Enjoy your trip to [facility] and happy birthday Plan is to [...] minimum of 6 months The most recent [place] [employer] clinical endocrinologists and [place] [employer] end[employer]in[employer] guidelines recommend patients who [...] track activity level. Consider using apps like Sporterpilot, myfitnesspal, lose it, stick as needed for self-monitoring and weight management. Consider group exercises. Consider hiring a emr trainer. Regular exercise is grace to sustainable [...] counseling and psychiatry and Dr Sheffield at [facility]. We would like to cover regular topics [...] software and direct typing Please excuse inadvertent director surgical or typing errors, or uncorrected word substitutions Although every attempt has been made by the provider to proofread this document, occasional misspellings and typographical errors may still be present Due to the previous pandemic, and the use of personal protective equipment (PPE) This may decrease voice recognition accuracy Inadvertent director surgical errors may occur 10/08/2023 Overweight (BMI 25.0-29.9) (ICD-10 - E66.3) #Weight Management 10/08/2023 Enjoy your trip to [facility] and happy birthday Plan is to [...] minimum of 6 months The most recent [place] [employer] of clinical endocrinologists and [place] [employer] endocrinology guidelines recommend patients who [...] track activity level. Consider using apps like [employer] Auditise, myfitnesspal, lose it, stick as needed for self-monitoring and weight management. Consider group exercises. Consider hiring a emr trainer. Regular exercise is grace to sustainable [...] counseling and psychiatry and Dr Sheffield at [facility]. We would like to cover regular topics [...] software and direct typing Please excuse inadvertent director surgical or typing errors, or uncorrected word substitutions Although every attempt has been made by the provider to proofread this document, occasional misspellings and typographical errors may still be present Due to the previous pandemic, and the use of personal protective equipment (PPE) This may decrease voice recognition accuracy Inadvertent director surgical errors may occur 10/08/2023 BMI 27.0-27.9,adult (ICD-10 - Z68.27) #Weight Management 10/08/2023 Enjoy your trip to [facility] and happy birthday Plan is to [...] minimum of 6 months The most recent [place] [employer] of clinical endocrinologists and [place] [employer] endocrinology guidelines recommend patients who [...] track activity level. Consider using apps like Sporterpilot, Project 2020pal, lose it, stick as needed for self-monitoring and weight management. Consider group exercises. Consider hiring a emr trainer. Regular exercise is grace to sustainable [...] counseling and psychiatry and Dr Sheffield at [facility]. We would like to cover regular topics [...] software and direct typing Please excuse inadvertent director surgical or typing errors, or uncorrected word substitutions Although every attempt has been made by the provider to proofread this document, occasional misspellings and typographical errors may still be present Due to the previous pandemic, and the use of personal protective equipment (PPE) This may decrease voice recognition accuracy Inadvertent director surgical errors may occur 08/01/2023 Dietary counseling and surveillance (ICD-10 - Z71.3) #Weight Management 08/01/2023 Enjoy your trip to [facility] and happy birthday Plan is to [...] minimum of 6 months The most recent [place] [employer] of clinical endocrinologists and [place] [employer] endocrinology guidelines recommend patients who [...] track activity level. Consider using apps like Sporterpilot, Project 2020pal, lose it, stick as needed for self-monitoring and weight management. Consider group exercises. Consider hiring a emr trainer. Regular exercise is grace to sustainable [...] counseling and psychiatry and Dr Sheffield at [facility]. We would like to cover regular topics [...] software and direct typing Please excuse inadvertent director surgical or typing errors, or uncorrected word substitutions Although every attempt has been made by the provider to proofread this document, occasional misspellings and typographical errors may still be present Due to the previous pandemic, and the use of personal protective equipment (PPE) This may decrease voice recognition accuracy Inadvertent director surgical errors may occur 05/21/2023 Prediabetes (ICD-10 - [...] minimum of 6 months The most recent [place] [employer] of clinical endocrinologists and [place] [employer] of endocrinology guidelines recommend patients who [...] track activity level. Consider using apps like Sporterpilot, Project 2020pal, lose it, stick as needed for self-monitoring and weight management. Consider group exercises. Consider hiring a emr trainer. Regular exercise is grace to sustainable [...] counseling and psychiatry and Dr Sheffield at [facility]. We would like to cover regular topics [...] software and direct typing Please excuse inadvertent director surgical or typing errors, or uncorrected word substitutions Although every attempt has been made by the provider to proofread this document, occasional misspellings and typographical errors may still be present Due to the previous pandemic, and the use of personal protective equipment (PPE) This may decrease voice recognition accuracy Inadvertent director surgical errors may occur 07/09/2023 Prediabetes (ICD-10 - [...] minimum of 6 months The most recent [place] [employer] of clinical endocrinologists and [place] [employer] endocrinology guidelines recommend patients who [...] track activity level. Consider using apps like Sporterpilot, myfitnesspal, lose it, stick as needed for self-monitoring and weight management. Consider group exercises. Consider hiring a emr trainer. Regular exercise is grace to sustainable [...] counseling and psychiatry and Dr Sheffield at [facility]. We would like to cover regular topics [...] software and direct typing Please excuse inadvertent director surgical or typing errors, or uncorrected word substitutions Although every attempt has been made by the provider to proofread this document, occasional misspellings and typographical errors may still be present Due to the previous pandemic, and the use of personal protective equipment (PPE) This may decrease voice recognition accuracy Inadvertent director surgical errors may occur 05/21/2023 BMI 25.0-25.9,adult (ICD-10 [...] minimum of 6 months The most recent [place] [employer] of clinical endocrinologists and [place] [employer] of endocrinology guidelines recommend patients who [...] track activity level. Consider using apps like Sporterpilot, Project 2020pal, lose it, stick as needed for self-monitoring and weight management. Consider group exercises. Consider hiring a emr trainer. Regular exercise is grace to sustainable [...] counseling and psychiatry and Dr Sheffield at [facility]. We would like to cover regular topics [...] software and direct typing Please excuse inadvertent director surgical or typing errors, or uncorrected word substitutions Although every attempt has been made by the provider to proofread this document, occasional misspellings and typographical errors may still be present Due to the previous pandemic, and the use of personal protective equipment (PPE) This may decrease voice recognition accuracy Inadvertent director surgical errors may occur 08/01/2023 Prediabetes (ICD-10 - R73.03) #Weight Management 08/01/2023 Enjoy your trip to [facility] and happy birthday Plan is to [...] minimum of 6 months The most recent [place] [employer] of clinical endocrinologists and [place] [employer] endocrinology guidelines recommend patients who [...] track activity level. Consider using apps like Sporterpilot, Project 2020pal, lose it, stick as needed for self-monitoring and weight management. Consider group exercises. Consider hiring a emr trainer. Regular exercise is grace to sustainable [...] counseling and psychiatry and Dr Sheffield at [facility]. We would like to cover regular topics [...] software and direct typing Please excuse inadvertent director surgical or typing errors, or uncorrected word substitutions Although every attempt has been made by the provider to proofread this document, occasional misspellings and typographical errors may still be present Due to the previous pandemic, and the use of personal protective equipment (PPE) This may decrease voice recognition accuracy Inadvertent director surgical errors may occur 07/09/2023 BMI 25.0-25.9,adult (ICD-10 [...] minimum of 6 months The most recent [place] [employer] of clinical endocrinologists and [place] [employer] of endocrinology guidelines recommend patients who [...] track activity level. Consider using apps like Sporterpilot, Project 2020pal, lose it, stick as needed for self-monitoring and weight management. Consider group exercises. Consider hiring a emr trainer. Regular exercise is grace to sustainable [...] counseling and psychiatry and Dr Sheffield at [facility]. We would like to cover regular topics [...] software and direct typing Please excuse inadvertent director surgical or typing errors, or uncorrected word substitutions Although every attempt has been made by the provider to proofread this document, occasional misspellings and typographical errors may still be present Due to the previous pandemic, and the use of personal protective equipment (PPE) This may decrease voice recognition accuracy Inadvertent director surgical errors may occur 10/08/2023 Dietary counseling and surveillance (ICD-10 - Z71.3) #Weight Management 10/08/2023 Enjoy your trip to [facility] and happy birthday Plan is to [...] minimum of 6 months The most recent [place] [employer] of clinical endocrinologists and [place] [employer] endocrinology guidelines recommend patients who [...] track activity level. Consider using apps like Sporterpilot, Project 2020pal, lose it, stick as needed for self-monitoring and weight management. Consider group exercises. Consider hiring a emr trainer. Regular exercise is grace to sustainable [...] counseling and psychiatry and Dr Sheffield at [facility]. We would like to cover regular topics [...] software and direct typing Please excuse inadvertent director surgical or typing errors, or uncorrected word substitutions Although every attempt has been made by the provider to proofread this document, occasional misspellings and typographical errors may still be present Due to the previous pandemic, and the use of personal protective equipment (PPE) This may decrease voice recognition accuracy Inadvertent director surgical errors may occur 10/08/2023 Prediabetes (ICD-10 - R73.03) #Weight Management 10/08/2023 Enjoy your trip to [facility] and happy birthday Plan is to [...] minimum of 6 months The most recent [place] [employer] of clinical endocrinologists and [place] [employer] of endocrinology guidelines recommend patients who [...] track activity level. Consider using apps like Sporterpilot, myfitnesspal, lose it, stick as needed for self-monitoring and weight management. Consider group exercises. Consider hiring a emr trainer. Regular exercise is grace to sustainable [...] counseling and psychiatry and Dr Sheffield at [facility]. We would like to cover regular topics [...] software and direct typing Please excuse inadvertent director surgical or typing errors, or uncorrected word substitutions Although every attempt has been made by the provider to proofread this document, occasional misspellings and typographical errors may still be present Due to the previous pandemic, and the use of personal protective equipment (PPE) This may decrease voice recognition accuracy Inadvertent director surgical errors may occur 08/01/2023 Acquired hypothyroidism (ICD-10 - E03.9) #Weight Management 08/01/2023 Enjoy your trip to [facility] and happy birthday Plan is to [...] minimum of 6 months The most recent [place] [employer] of clinical endocrinologists and [place] [employer] of endocrinology guidelines recommend patients who [...] track activity level. Consider using apps like Sporterpilot, Bid Nerdfitnesspal, lose it, stick as needed for self-monitoring and weight management. Consider group exercises. Consider hiring a emr trainer. Regular exercise is grace to sustainable [...] counseling and psychiatry and Dr Sheffield at [facility]. We would like to cover regular topics [...] software and direct typing Please excuse inadvertent director surgical or typing errors, or uncorrected word substitutions Although every attempt has been made by the provider to proofread this document, occasional misspellings and typographical errors may still be present Due to the previous pandemic, and the use of personal protective equipment (PPE) This may decrease voice recognition accuracy Inadvertent director surgical errors may occur 07/09/2023 Dietary counseling and [...] minimum of 6 months The most recent [place] [employer] of clinical endocrinologists and [place] [employer] of endocrinology guidelines recommend patients who [...] track activity level. Consider using apps like Sporterpilot, Project 2020pal, lose it, stick as needed for self-monitoring and weight management. Consider group exercises. Consider hiring a emr trainer. Regular exercise is grace to sustainable [...] counseling and psychiatry and Dr Sheffield at [facility]. We would like to cover regular topics [...] software and direct typing Please excuse inadvertent director surgical or typing errors, or uncorrected word substitutions Although every attempt has been made by the provider to proofread this document, occasional misspellings and typographical errors may still be present Due to the previous pandemic, and the use of personal protective equipment (PPE) This may decrease voice recognition accuracy Inadvertent director surgical errors may occur 10/08/2023 Acquired hypothyroidism (ICD-10 - E03.9) #Weight Management 10/08/2023 Enjoy your trip to [facility] and happy birthday Plan is to [...] minimum of 6 months The most recent [place] [employer] of clinical endocrinologists and [place] [employer] of endocrinology guidelines recommend patients who [...] track activity level. Consider using apps like Sporterpilot, Project 2020pal, lose it, stick as needed for self-monitoring and weight management. Consider group exercises. Consider hiring a emr trainer. Regular exercise is grace to sustainable [...] counseling and psychiatry and Dr Sheffield at [facility]. We would like to cover regular topics [...] software and direct typing Please excuse inadvertent director surgical or typing errors, or uncorrected word substitutions Although every attempt has been made by the provider to proofread this document, occasional misspellings and typographical errors may still be present Due to the previous pandemic, and the use of personal protective equipment (PPE) This may decrease voice recognition accuracy Inadvertent director surgical errors may occur PLAN OF TREATMENT No Information Insurance Providers Payer Name Payer Address Payer Phone Subscriber Number Group Number Insured Name Patient Relationship to Insured Coverage Start Date Coverage End Date [facility] [address] [place] [address] [id number] Lory Doshi Self - patient is the insured 4 MEDICAL (GENERAL) HISTORY Medical History History ICD Code thyroid disease Surgical History Surgery Date(Month/Year) section 12/31/2012
--- OUTSIDE RECORDS SUMMARY | 2024-05-13 07:10 | XMS_ITS ---
Author Organization [facility] Address [address] [place] [address] Care Team Providers Care Log Sawyer Name Role Phone LIZ RACHEL Unavailable [phone] REASON FOR VISIT BILLING Encounters Encounter Location Date Provider Diagnosis [address] [address] 09/20/2023 LIZ RACHEL PLAN OF TREATMENT No Information Progress Notes * Sarah DOSHI eDOB:1975 (48 yo F)Acc No.[id number]:09/20/2023 Patient:??Lory DOSHI :1975?Age:48 Y?Sex:Fe male Address:[address] [place] [address] * true * Date:??
[2024-05-13 10:24] LABS: Hematocrit 42.8 % (37.0-47.0); Hemoglobin 13.6 g/dl (12.0-16.0)
[2024-05-13 10:43] LABS: Anion Gap 11 (12-20); Blood Urea Nitrogen 14 mg/dL (9-16); Calcium 9.4 mg/dL (8.4-10.2); Carbon Dioxide 27 mmol/L (22-29); Chloride 108 mmol/L (96-108); Cholesterol 204 mg/dL (<200); Estimated Glomerular Filt Rate > 60; Glucose Fasting 107 mg/dL (60-99); HDL Cholesterol 47 mg/dL (>40); LDL Cholesterol Calculated 113 mg/dL (<100); Potassium 3.7 mmol/L (3.3-5.1); Sodium 142 mmol/L (135-145); Triglycerides 223 mg/dL (<150)
== END 2024-05-13 07:06 | disposition home or self-care (01) ==
LOC: HO.HMGCLDS 07:05
PROVIDERS: PCP Internal Medicine; Visit Provider Internal Medicine
DX: R73.01 Impaired fasting glucose (principal); E06.3 Autoimmune thyroiditis; E78.1 Pure hyperglyceridemia; E55.9 Vitamin D deficiency, unspecified; R03.0 Elevated blood-pressure reading, without diagnosis of hypertension
CPT/HCPCS: 36415; 80048; 80061; 82306; 85014; 85018

== ENCOUNTER 2024-07-19 08:53 | Outpatient (REF) | payer OTHER, SELFPAY ==
--- OUTSIDE RECORDS SUMMARY | 2024-07-19 08:55 | XMS_ITS ---
Author Organization [facility] [address] Address [address] [place] [address] Care Team Providers [facility] Display [facility] Name Role Phone LIZ RACHEL Unavailable [phone] Medications Medication SIG (Take, Route, Frequency, Duration) Notes Start Date End Date Status Mounjaro 5 MG/0.5ML 5mg Subcutaneous weekly for 90 days PA Approved 10/24/2022 to 10/24/2023 Active Encounters Encounter Location Date Provider Diagnosis [facility] [address] [facility] [address] [place] [address] 10/08/2023 LIZ RACHEL Overweight (BMI 25.0-29.9) E66.3 ; BMI 27.0-27.9,adult Z68.27 ; Dietary counseling and surveillance Z71.3 ; Prediabetes R73.03 and Acquired hypothyroidism E03.9 Assessments Encounter Date Diagnosis (ICD Code) Assessment Notes Treatment Notes Treatment Clinical Notes Section Notes 10/08/2023 Overweight (BMI 25.0-29.9) (ICD-10 - E66.3) #Weight Management 10/08/[address] to [facility] and happy birthday Plan is [...] minimum of 6 months The most recent [place] [employer] of clinical endocrinologists and [place] [employer] of endocrin[employer] guidelines recommend patients who [...] track activity level. Consider using apps like ThingMagic, myfitSource MDxpal, lose it, stick as needed for self-monitoring and weight management. Consider group exercises. Consider hiring a radio personality. Regular exercise is grace to sustainable health [...] counseling and psychiatry and Dr Sheffield at [facility]. We would like to cover regular topics [...] software and direct typing Please excuse inadvertent cloth checker or typing errors, or uncorrected word substitutions Although every attempt has been made by the provider to proofread this document, occasional misspellings and typographical errors may still be present Due to the previous pandemic, and the use of personal protective equipment (PPE) This may decrease voice recognition accuracy Inadvertent cloth checker errors may occur 10/08/2023 BMI 27.0-27.9,adult (ICD-10 - Z68.27) #Weight Management 10/08/[address] to [facility] and happy birthday Plan is [...] minimum of 6 months The most recent [place] [employer] of clinical endocrinologists and [place] [employer] endocrin[employer] guidelines recommend patients who [...] track activity level. Consider using apps like Next audience mionute excercise, Yangaroopal, lose it, stick as needed for self-monitoring and weight management. Consider group exercises. Consider hiring a radio personality. Regular exercise is grace to sustainable health [...] counseling and psychiatry and Dr Sheffield at [facility]. We would like to cover regular topics [...] software and direct typing Please excuse inadvertent cloth checker or typing errors, or uncorrected word substitutions Although every attempt has been made by the provider to proofread this document, occasional misspellings and typographical errors may still be present Due to the previous pandemic, and the use of personal protective equipment (PPE) This may decrease voice recognition accuracy Inadvertent cloth checker errors may occur 10/08/2023 Dietary counseling and surveillance (ICD-10 - Z71.3) #Weight Management 10/08/[address] [facility] and happy birthday Plan is [...] minimum of 6 months The most recent [place] [employer] of clinical endocrinologists and [place] [employer] endocrinology guidelines recommend patients who [...] track activity level. Consider using apps like ThingMagic, myfitnesspal, lose it, stick as needed for self-monitoring and weight management. Consider group exercises. Consider hiring a radio personality. Regular exercise is grace to sustainable health [...] counseling and psychiatry and Dr Sheffield at [facility]. We would like to cover regular topics [...] software and direct typing Please excuse inadvertent cloth checker or typing errors, or uncorrected word substitutions Although every attempt has been made by the provider to proofread this document, occasional misspellings and typographical errors may still be present Due to the previous pandemic, and the use of personal protective equipment (PPE) This may decrease voice recognition accuracy Inadvertent cloth checker errors may occur 10/08/2023 Prediabetes (ICD-10 - R73.03) #Weight Management 10/08/[address] [facility] and happy birthday Plan is [...] minimum of 6 months The most recent [place] [employer] of clinical endocrinologists and [place] [employer] of endocrinology guidelines recommend patients who [...] and Eat Fat Get Lean by Dr Mkasim Blanc. Self education is important in the [...] track activity level. Consider using apps like ThingMagic, Yangaroopal, lose it, stick as needed for self-monitoring and weight management. Consider group exercises. Consider hiring a radio personality. Regular exercise is grace to sustainable health [...] counseling and psychiatry and Dr Sheffield at [facility]. We would like to cover regular topics [...] software and direct typing Please excuse inadvertent cloth checker or typing errors, or uncorrected word substitutions Although every attempt has been made by the provider to proofread this document, occasional misspellings and typographical errors may still be present Due to the previous pandemic, and the use of personal protective equipment (PPE) This may decrease voice recognition accuracy Inadvertent cloth checker errors may occur 10/08/2023 Acquired hypothyroidism (ICD-10 - E03.9) #Weight Management 10/08/[address] [facility] and happy birthday Plan is [...] minimum of 6 months The most recent [place] [employer] of clinical endocrinologists and [place] [employer] of endocrinology guidelines recommend patients who [...] track activity level. Consider using apps like ThingMagic, Yangaroopal, lose it, stick as needed for self-monitoring and weight management. Consider group exercises. Consider hiring a radio personality. Regular exercise is grace to sustainable health [...] counseling and psychiatry and Dr Sheffield at [facility]. We would like to cover regular topics [...] software and direct typing Please excuse inadvertent cloth checker or typing errors, or uncorrected word substitutions Although every attempt has been made by the provider to proofread this document, occasional misspellings and typographical errors may still be present Due to the previous pandemic, and the use of personal protective equipment (PPE) This may decrease voice recognition accuracy Inadvertent cloth checker errors may occur Plan Of Treatment Medication Medication Name Sig Start Date Stop Date Notes Mounjaro 5 MG/0.5ML 5mg Subcutaneous wee kly for 90 days PA Approved 10/24/2022 to 10/24/2023 Progress Notes * Sarah DOSHI eDOB:1975 (48 yo F)Acc No.[id number]:10/08/2023 Patient:?Lory DOSHI Provider:?LIZ RACHEL NP :1975???Age:48 Y???Sex:Female D ate:10/08/2023 Address:[facility] Subjective: * Chief Complaints: * ??? * HPI: ???Constitutional:? Patient is here today for a weight [...] maintenance dosing Injection day Saturdays Traveling to [facility] tomorrow for her 48th birthday [...] here. 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 Non-smoker. ETOH use: socially. * ROS:?All Other Systems:?Review of Systems (ROS)?All others negative except those mentioned in HPI.? * Medical History:? Objective: * Vitals:? * Examination: ???General Examination: ?GENERAL APPEARANCE:?in no acute distress, well developed, well nourished.?HEAD:?normocephalic, atraumatic.?EYES:?pupils equal, round, reactive to light and accommodation.?EARS:?normal.?ORAL CAVITY:?mucosa moist.?THROAT:?clear.?NECK/THYROID:?neck supple, full range of motion, no cervical lymphadenopathy.?SKIN:?no suspicious lesions, warm and dry.?HEART:?no murmurs, regular rate and rhythm, S1, S2 normal.?LUNGS:?clear to auscultation bilaterally.?ABDOMEN:?normal, bowel sounds present, soft, nontender, nondistended.?EXTREMITIES:?no clubbing, cyanosis, or edema.?NEUROLOGIC:?nonfocal, motor strength normal upper and lower extremities, sensory exam intact.? Assessment: * Assessment: 1.?Overweight (BMI 25.0-29.9 ) - E66.3 (Primary)???2.?BMI 27.0-27.9,adult - Z68.27???3.?Dietary counseling and surveillance - Z71.3???4.?Prediabetes - R73.03???5.?Acquired hypothyroidism - E03.9??? #Weight Management 10/08/[address] [facility] and happy birthday Plan is [...] minimum of 6 months The most recent [place] [employer] of clinical endocrinologists and [place] [employer] of endocrinology guidelines recommend patients who [...] track activity level. Consider using apps like ThingMagic, myfitnesspal, lose it, stick as needed for self-monitoring and weight management. Consider group exercises. Consider hiring a radio personality. Regular exercise is grace to sustainable health [...] counseling and psychiatry and Dr Sheffield at [facility]. We would like to cover regular topics [...] software and direct typing Please excuse inadvertent cloth checker or typing errors, or uncorrected word substitutions Although every attempt has been made by the provider to proofread this document, occasional misspellings and typographical errors may still be present Due to the previous pandemic, and the use of personal protective equipment (PPE) This may decrease voice recognition accuracy Inadvertent cloth checker errors may occur. Plan: * Treatment: * Images: Billing Information: * Visit Code:? * Procedure Codes:? * Electronic signature of ALBAN RACHEL on 07/19/2024 at 08:54 AM EDT Sign off status: Pending * Provider:SUMA RACHEL NP Date:?2023 Generated for Kelly pagan/Norma/Asteritting on:?07/19/2024 08:54 AM EDT History and Physical Notes * [...] [facility] now on Mounjaro 5mg and thriving reached target goal weight , Now on maintenance dosing Injection day Saturdays Traveling to [facility] tomorrow for her 48th birthday [...] here. 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
[2024-07-19 11:16] LABS: Estimated Average Glucose 111 mg/dL; Hemoglobin A1C 130.0972 umol/L; Hemoglobin A1c % 5.5 % (<6.0); Total Hemoglobin (HGBA1C) 3511.4664 umol/L
[2024-07-19 11:49] LABS: Alanine Aminotransferase 18 U/L (0-31); Anion Gap 12 (12-20); Aspartate Amino Transferase 26 U/L (5-31); Blood Urea Nitrogen 13 mg/dL (9-16); Calcium 8.9 mg/dL (8.4-10.2); Carbon Dioxide 25 mmol/L (22-29); Chloride 108 mmol/L (96-108); Cholesterol 201 mg/dL (<200); Estimated Glomerular Filt Rate > 60; Free T4 (Free Thyroxine) 0.94 ng/dL (0.71-1.85); Glucose Fasting 94 mg/dL (60-99); HDL Cholesterol 47 mg/dL (>40); LDL Cholesterol Calculated 126 mg/dL (<100); Potassium 3.7 mmol/L (3.3-5.1); Sodium 141 mmol/L (135-145); Thyroid Stimulating Hormone 0.57 uIU/mL (0.32-4.0); Triglycerides 141 mg/dL (<150); Vitamin D 25-OH Total 30.2 ng/mL (>30)
[2024-07-22 17:38] LABS: Thyroid Peroxidase Antibodies 1 IU/mL (<9)
== END 2024-07-19 08:54 | disposition home or self-care (01) ==
LOC: HO.HMGCLDS 08:53
PROVIDERS: PCP Internal Medicine; Visit Provider Internal Medicine
DX: E06.3 Autoimmune thyroiditis (principal); R73.01 Impaired fasting glucose; E78.1 Pure hyperglyceridemia; E55.9 Vitamin D deficiency, unspecified; J30.89 Other allergic rhinitis
CPT/HCPCS: 36415; 80048; 80061; 82306; 83036; 84439; 84443; 84450; 84460; 86376

== ENCOUNTER 2024-07-23 13:11 | Outpatient (AMB) | payer OTHER, SELFPAY ==
--- NOTE | 2024-07-23 13:52 | MHC.PC.OV ---
Vital Signs 07/23/24 14:03 Height 5 ft 3 in Weight 165 lb 6 oz BMI 29.3 BP 142/98 H Blood Pressure Location Rt brachial Position Sitting Respiration 14 Pulse 60 Pulse Source Pulse Oximeter Temp 97.8 F Temp Source Oral Pulse Oximetry (%) 97 Oxygen Delivery Method Room Air Intake Visit Reasons: Annual PE Intake Note: Pt is here today for her PE: last mammogram 12/03/23, papsmear 05/13/20, colonoscopy 11/25/21 Allergies gluten Allergy (Unknown, Verified 07/23/24 14:25) Stomach Upset Medication List - Last Reconciled 07/23/24 by Sulma Plaza MD levothyroxine 50 mcg PO DAILY 30 days Tobacco use date assessed: 07/23/24 Dental Screening Dental Screen Date: 07/23/24 Did you have a dental visit in the last 12 months?: No Did you have a dental problem in the last 6 months where you did not have access to dental care?: No Was dental information given to patient?: Patient has dentist HPI Annual PE HPI Details 48-year-old lady here today for her physical exam. She has hypothyroidism, currently stable controlled on present dose of levothyroxine 50 mcg taken once a day. She is up-to-date with her screening colonoscopy done by Dr. Lainez on 11/25/2021, showing diverticulosis, due for a recheck again in 5 years due to positive family history colon cancer and fair prep in right side of her colon. She is up-to-date with her last mammogram, done 12/03/23. Her last papsmear was done 05/13/20 with normal findings., Blood pressure today elevated. Patient frustrated that she started getting her weight back again after she has her insurance stopped covering her [place]. [facility] Medical History (Updated 07/28/24 @ 03:06 by Sulma Plaza MD) Essential hypertension Impaired fasting glucose Gene's thyroiditis Hypertriglyceridemia Vitamin D deficiency Allergic rhinitis History of Papanicolaou smear of cervix Hypothyroidism Surgical History Hx of colonoscopy Hx of LASIK History of section Family History Father HTN (hypertension) CVD (cardiovascular disease) Diabetes mellitus Mother Medical history non-contributory Paternal Uncle Esophageal cancer Brother No problems noted. Sister Ovarian cancer Sister No problems noted. Daughter No problems noted. Maternal Aunt Uterine cancer CVD (cardiovascular disease) Social History Housing: House Alcohol intake: current Alcohol intake frequency: holidays/special occasions only Patient Tobacco Use Status: Never used Tobacco e-Cigarette/Vaping Use: Never Used Second Hand Smoke Exposure: No service: No Current occupational status: employed Current occupation: [employer] , Right hand dominate Current occupational exposures/hazards: No Cognitive needs: No Hearing needs: No Vision needs: No Questionnaire Thrive Questionnaire Date Thrive assessed: 07/23/24 I am a: Patient What is your living situation today?: I have a steady place to live Within the past 12 months, did the food you bought not last and you didn't have the money to get more?: Never true Within the past 12 months, did you worry whether your food would run out before you got money to buy more?: Never true Do you have trouble paying for medicines?: No Do you have trouble getting transportation to medical appointments?: No Do you have trouble paying your heating and electricity bill?: No Do you have trouble taking care of your child, family member or friend?: No Do you have trouble with day-to-day activities such as bathing, preparing meals, shopping, managing finances, etc.?: No Are you currently unemployed and looking for a job?: No Are you interested in more education?: No Please select the resources that you would like help with: None Currently or been in a relationship where the following occur: No concerns reported THRIVE Score: 0 GRAY-7 AMB Questionnaire GRAY-7 Date GRAY - 7 assessed: 03/26/24 Source: Developed by Drs. iMch Borrero, Mine Cool, Neal Lazar and colleagues, with an educational nitza from [employer]. Review of Systems Const Denies fatigue, Denies fever(s), Denies headache(s) and Denies weakness ENT Denies dizziness, Denies headache(s), Denies nasal discharge, Denies sinus pain and Denies sore throat Card Denies chest pain, Denies lightheadedness, Denies palpitations and Denies dyspnea Resp Denies chest congestion, Denies cough, Denies dyspnea and Denies wheezing GI Denies abdominal pain, Denies change in bowel habits and Denies heartburn Reports abnormal menses (Skipping months), Denies urinary frequency, Reports hot flashes, Denies dysuria, Reports urinary incontinence (Occasional leakage with cough) and Denies urinary urgency Musc Denies muscle weakness Skin/Breast Denies breast pain, Denies breast mass and Denies rash Neuro Denies dizziness, Denies headache(s) and Denies weakness Psych Reports no additional complaints Endo Denies fatigue, Denies polydipsia, Denies polyuria and Denies palpitations Hector/Lymph Reports no additional complaints Aller/Immun Denies seasonal rhinorrhea and Denies wheezing Physical exam (Primary Care) Vital Signs: Last Vital Signs Temp 97.8 F 07/23/24 14:03 Pulse 60 07/23/24 14:03 Resp 14 07/23/24 14:03 BP 142/98 H 07/23/24 14:03 Pulse Ox 97 07/23/24 14:03 Oxygen Delivery Method Room Air 07/23/24 14:03 BMI result Body Mass Index 29.3 Tobacco/Smoking Status: Tobacco use Status Tobacco use date assessed 07/23/24 07/23/24 13:53 Patient Tobacco Use Status Never used Tobacco 07/23/24 13:53 e-Cigarette/Vaping Use Never Used 07/23/24 13:53 Thrive Assessment: Date of Thrive Assessment Date Thrive assessed 07/23/24 07/23/24 14:09 Currently or been in a relationship where the following occur: No concerns reported Const General: comfortable, no acute distress and alert Orientation/consciousness: patient oriented x3 HENMT Face and sinus: Yes face symmetric Throat: Yes posterior oropharynx normal Neck Neck: Yes full ROM, Yes no lymphadenopathy and Yes supple Thyroid: diffusely enlarged Resp Effort & Inspection: normal respiratory effort and able to speak in complete sentences Auscultation: clear to auscultation bilaterally Cardio Palpation: normal PMI Rate: regular rate Rhythm: regular rhythm Heart sounds: S1 normal heart sound present and S2 normal heart sound present GI Inspection: Yes normal to inspection Palpation (GI): Soft to palpation, nontender, no guarding and no masses Auscultation: normal bowel sounds General: Yes no CVA tenderness Back/Spine/Pelvis Back: no CVA tenderness and No back tenderness Skin General skin exam: no rashes or lesions noted Neuro General: patient oriented x3, gait normal, tone normal, moves all extremities, Normal light touch and pain sensation, no focal motor deficits and CN's II-XI intact bilaterally Extrem General: Yes full ROM, Yes no joint enlargement, Yes no pedal edema, Yes no calf tenderness and Yes normal gait Psych Appearance: grossly normal Mental Status: mental status grossly normal Speech and movement: Normal speech and movement present Affect: normal affect Attitude: cooperative Thought content: Normal thought content present Results Reviewed Results Reviewed: bon: Lory Doshi Age/Sex: 48/F : 1975 Unit#: [id number] Attend Dr: Sulma Plaza MD Re07/19/24 Status: DEP REF Location: [facility] Disch: SPEC : [id number] TIAN: 07/19/24 STATUS: COMP REQ : [id number] RECD: 07/19/[address]: Sulma Plaza MD COMP: 07/19/24 ENTERED: 07/19/[address]: ORDERED: Met Prof Fast, AST, ALT, Lipid Panel, Vitamin D 25-OH, Free T4, TSH Test Result Flag Reference Sodium 141 135-145 mmol/L Potassium 3.7 3.3-5.1 mmol/L CL 108 96-108 mmol/L CO2 25 22-29 mmol/L Gap 12 12-20 BUN 13 9-16 mg/dL Creat 0.71 0.5-1.4 mg/dL eGFR > 60 Chronic Kidney Disease: Estimated GFR < 60 mL/min/1.73m2 Severe Kidney Disease: Estimated GFR < 15 mL/min/1.73m2 FBS 94 60-99 mg/dL CA 8.9 8.4-10.2 mg/dL AST (GOT) 26 5-31 U/L ALT (GPT) 18 0-31 U/L Triglyceride 141 <150 mg/dL Desirable Triglyceride: less than 150 mg/dL Borderline High Triglyceride 150-199 mg/dL High Triglyceride: 200-499 mg/dL Very High Triglyceride: greater than or equal to 5OO mg/dL Cholesterol 201 H <200 mg/dL Desirable Cholesterol: less than 200 mg/dL Borderline High Cholesterol: 200-239 mg/dL High Cholesterol: greater than 239 mg/dL LDL Calculated 126 H <100 mg/dL Desirable LDL: less than 100 mg/dL Near Optimal/Above Optimal LDL: 110-129 mg/dL Borderline High LDL: 130-159 mg/dL High LDL: 160-189 mg/dL Very High LDL: greater than or equal to 190 mg/dL HDL 47 >40 mg/dL Desirable HDL: greater than 40 mg/dL Note: This HDL assay may give artificially low results in patients with liver disease. Vitamin D 25-OH 30.2 >30 ng/mL Health Based Reference Values* < 20 ng/mL Deficient 20-30 ng/mL Insufficient > 30 ng/mL Sufficient *Walt KING. N Engl J Med. 2007;357:266-280 There is no well-established upper level of normal vitamin D levels. Some laboratories use 50 ng/mL as an upper limit of normal. However, toxicity is patient-dependent and may occur at any level. Careful correlation with the patient's presentation is necessary and, if there is concern for vitamin D toxicity, treatment should be considered irrespective of the serum level. Care must be taken in interpreting Vitamin D results from different laboratories and methodologies. Published data demonstrated that results from patients undergoing hemodialysis may show a negative bias when tested with various automated 25-OH vitamin D assays when compared to LC-MS/MS. When testing samples from patients whose predominant form of Vitamin D is Vitamin D2, such as patients receiving Vitamin D2 supplementation, results that are subtherapeutic should be confirmed with another method such as LC-MS/MS. Free T4 0.94 0.71-1.85 ng/dL TSH 3rd Gen. 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 Recommended dental visit every 6 months and regular eye exams, at least every 2 years. Take adequate calcium in diet and vitamin-D 3 at 2000 IU per cap once a day, in addition to weight-bearing exercises to help maintain good muscle tone and weight control. Instructed to do self-breast exam, and continue to get yearly mammogram up-to-date with her cervical cancer screening and colonoscopy. Up-to-date wit her Tdap does not want to get further COVID vaccine or flu shot (2) Hypothyroidism: Code(s): E03.9 - Hypothyroidism, unspecified Category: Medical Qualifiers: Hypothyroidism type: due to Gene's thyroiditis Qualified Code(s): E06.3 - Autoimmune thyroiditis Plan: Latest thyroid levels are within normal limits continued on levothyroxine 50 mcg daily (3) Vitamin D deficiency: Code(s): E55.9 - Vitamin D deficiency, unspecified Category: Medical Plan: Vitamin-D levels within normal limits, continue with taking [id number] vitamin D3 2000 units daily (4) Hypertriglyceridemia: Code(s): E78.1 - Pure hyperglyceridemia Category: Medical Plan: Reviewed recent fasting lipid profile with patient with levels within normal limits . Continue adherence to low-cholesterol diet and regular exercise, at least 30 minutes 3 to 4 times a week. Advised patient to make healthy food choices, eat more fruits, vegetables, whole grains, wild caught fish and low-fat dairy. Limit amount of meat and fried or fatty food products, as well as processed foods and fast foods. Follow-up scheduled with repeat fasting lipid panel in 3 months. (5) Essential hypertension: Code(s): I10 - Essential (primary) hypertension Category: Medical Plan: Blood pressure elevated today, who started on olmesartan 5 mg per tablet taken once a day. Reinforced importance of following a low-salt diet and getting regular exercise, follow-up visit in 3 months Orders: Orders Basic Metabolic Panel Fasting 3 Months E06.3 - Autoimmune thyroiditis, E55.9 - Vitamin D deficiency, unspecified, E78.1 - Pure hyperglyceridemia, R73.01 - Impaired fasting glucose Aspartate Amino Transferase 3 Months E06.3 - Autoimmune thyroiditis, E55.9 - Vitamin D deficiency, unspecified, E78.1 - Pure hyperglyceridemia, R73.01 - Impaired fasting glucose Alanine Aminotransferase 3 Months E06.3 - Autoimmune thyroiditis, E55.9 - Vitamin D deficiency, unspecified, E78.1 - Pure hyperglyceridemia, R73.01 - Impaired fasting glucose Free T4 (Free Thyroxine) 3 Months E06.3 - Autoimmune thyroiditis, E55.9 - Vitamin D deficiency, unspecified, E78.1 - Pure hyperglyceridemia, R73.01 - Impaired fasting glucose Lipid Panel 3 Months E06.3 - Autoimmune thyroiditis, E55.9 - Vitamin D deficiency, unspecified, E78.1 - Pure hyperglyceridemia, R73.01 - Impaired fasting glucose Thyroid Stimulating Hormone 3 Months E06.3 - Autoimmune thyroiditis, E55.9 - Vitamin D deficiency, unspecified, E78.1 - Pure hyperglyceridemia, R73.01 - Impaired fasting glucose Medications: New olmesartan 5 mg PO DAILY 90 tabs 1RF
--- OUTSIDE RECORDS SUMMARY | 2024-07-23 14:00 | XMS_ITS ---
Author Organization [facility] [address] Address [address] [place] [address] Care Team Providers Care End User Consultant Name Role Phone LIZ RACHEL Unavailable [phone] Medications Medication SIG (Take, Route, Frequency, Duration) Notes Start Date End Date Status Mounjaro 5 MG/0.5ML 5mg Subcutaneous weekly for 90 days PA Approved 10/24/2022 to 10/24/2023 Active Encounters Encounter Location Date Provider Diagnosis [facility] [address] [facility] [address] [place] [address] 10/08/2023 LIZ RACHEL Overweight (BMI 25.0-29.9) E66.3 ; BMI 27.0-27.9,adult Z68.27 ; Dietary counseling and surveillance Z71.3 ; Prediabetes R73.03 and Acquired hypothyroidism E03.9 Assessments Encounter Date Diagnosis (ICD Code) Assessment Notes Treatment Notes Treatment Clinical Notes Section Notes 10/08/2023 Overweight (BMI 25.0-29.9) (ICD-10 - E66.3) #Weight Management 10/08/2023 Enjoy your trip to [facility] and happy birthday Plan is to see [...] minimum of 6 months The most recent [place] [employer] of clinical endocrinologists and [place] [employer] of endocrinology guidelines recommend patients who [...] track activity level. Consider using apps like [employer], [facility], lose it, stick as needed for self-monitoring and weight management. Consider group exercises. Consider hiring a marine animal trainer. Regular exercise is grace to sustainable [...] counseling and psychiatry and Dr Sheffield at [facility]. We would like to cover regular topics [...] software and direct typing Please excuse inadvertent k 12 principal or typing errors, or uncorrected word substitutions Although every attempt has been made by the provider to proofread this document, occasional misspellings and typographical errors may still be present Due to the previous pandemic, and the use of personal protective equipment (PPE) This may decrease voice recognition accuracy Inadvertent k 12 principal errors may occur 10/08/2023 BMI 27.0-27.9,adult (ICD-10 - Z68.27) #Weight Management 10/08/2023 Enjoy your trip to [facility] and happy birthday Plan is to see [...] minimum of 6 months The most recent [place] [employer] of clinical endocrinologists and [place] [employer] of endocrinology guidelines recommend patients who [...] track activity level. Consider using apps like [employer], [employer], lose it, stick as needed for self-monitoring and weight management. Consider group exercises. Consider hiring a marine animal trainer. Regular exercise is grace to sustainable [...] counseling and psychiatry and Dr Sheffield at [facility]. We would like to cover regular topics [...] software and direct typing Please excuse inadvertent k 12 principal or typing errors, or uncorrected word substitutions Although every attempt has been made by the provider to proofread this document, occasional misspellings and typographical errors may still be present Due to the previous pandemic, and the use of personal protective equipment (PPE) This may decrease voice recognition accuracy Inadvertent k 12 principal errors may occur 10/08/2023 Dietary counseling and surveillance (ICD-10 - Z71.3) #Weight Management 10/08/2023 Enjoy your trip to [facility] and happy birthday Plan is to see [...] minimum of 6 months The most recent [place] [employer] of clinical endocrinologists and [place] [employer] of endocrinology guidelines recommend patients who [...] track activity level. Consider using apps like [employer], [employer], lose it, stick as needed for self-monitoring and weight management. Consider group exercises. Consider hiring a marine animal trainer. Regular exercise is grace to sustainable [...] counseling and psychiatry and Dr Sheffield at [facility]. We would like to cover regular topics [...] software and direct typing Please excuse inadvertent k 12 principal or typing errors, or uncorrected word substitutions Although every attempt has been made by the provider to proofread this document, occasional misspellings and typographical errors may still be present Due to the previous pandemic, and the use of personal protective equipment (PPE) This may decrease voice recognition accuracy Inadvertent k 12 principal errors may occur 10/08/2023 Prediabetes (ICD-10 - R73.03) #Weight Management 10/08/2023 Enjoy your trip to [facility] and happy birthday Plan is to see [...] minimum of 6 months The most recent [place] [employer] of clinical endocrinologists and [place] [employer] of endocrinology guidelines recommend patients who [...] track activity level. Consider using apps like [employer], [employer], lose it, stick as needed for self-monitoring and weight management. Consider group exercises. Consider hiring a marine animal trainer. Regular exercise is grace to sustainable [...] counseling and psychiatry and Dr Sheffield at [facility]. We would like to cover regular topics [...] software and direct typing Please excuse inadvertent k 12 principal or typing errors, or uncorrected word substitutions Although every attempt has been made by the provider to proofread this document, occasional misspellings and typographical errors may still be present Due to the previous pandemic, and the use of personal protective equipment (PPE) This may decrease voice recognition accuracy Inadvertent k 12 principal errors may occur 10/08/2023 Acquired hypothyroidism (ICD-10 - E03.9) #Weight Management 10/08/2023 Enjoy your trip to [facility] and happy birthday Plan is to see [...] minimum of 6 months The most recent [place] [employer] of clinical endocrinologists and [place] [employer] of endocrinology guidelines recommend patients who [...] track activity level. Consider using apps like [employer], [employer], lose it, stick as needed for self-monitoring and weight management. Consider group exercises. Consider hiring a marine animal trainer. Regular exercise is grace to sustainable [...] counseling and psychiatry and Dr Sheffield at [facility]. We would like to cover regular topics [...] software and direct typing Please excuse inadvertent k 12 principal or typing errors, or uncorrected word substitutions Although every attempt has been made by the provider to proofread this document, occasional misspellings and typographical errors may still be present Due to the previous pandemic, and the use of personal protective equipment (PPE) This may decrease voice recognition accuracy Inadvertent k 12 principal errors may occur Plan Of Treatment Medication Medication Name Sig Start Date Stop Date Notes Mounjaro 5 MG/0.5ML 5mg Subcutaneous wee kly for 90 days PA Approved 10/24/2022 to 10/24/2023 Progress Notes * Sarah DOSHI eDOB:1975 (48 yo F)Acc No.[id number]:10/08/2023 Patient:?Lory DOSHI Provider:?LIZ RACHEL NP :1975???Age:48 Y???Sex:Female D ate:10/08/2023 Address:[id number] Subjective: * Chief Complaints: * ??? * [...] day Saturdays Traveling to [facility] tomorrow for her 48th birthday likely will [...] Enjoy your trip to [facility] and happy birthday Plan is to see [...] minimum of 6 months The most recent [place] [employer] of clinical endocrinologists and [place] [employer] of endocrinology guidelines recommend patients who [...] track activity level. Consider using apps like [employer], [employer], lose it, stick as needed for self-monitoring and weight management. Consider group exercises. Consider hiring a marine animal trainer. Regular exercise is grace to sustainable [...] counseling and psychiatry and Dr Sheffield at [facility]. We would like to cover regular topics [...] software and direct typing Please excuse inadvertent k 12 principal or typing errors, or uncorrected word substitutions Although every attempt has been made by the provider to proofread this document, occasional misspellings and typographical errors may still be present Due to the previous pandemic, and the use of personal protective equipment (PPE) This may decrease voice recognition accuracy Inadvertent k 12 principal errors may occur. Plan: * Treatment: * Images: Billing Information: * Visit Code:? * Procedure Codes:? * Electronic signature of ALBAN RACHEL on 07/23/2024 at 02:00 PM EDT Sign off status: Pending * Provider:SUMA RACHEL NP Date:?2023 Generated for Kelly pagan/Norma/Asteritting on:?07/23/2024 02:00 PM EDT History and Physical Notes * HPI [...] then likely will need to transition to [facility] Patient now on Mounjaro 5mg and thriving reached target goal weight , Now on maintenance dosing Injection day Saturdays Traveling to [facility] tomorrow for her 48th birthday likely will [...] General Examination GENERAL APPEARANCE: in no ac table mountain distress, well developed, well nourished HEAD: normocephalic, [...]
[2024-07-23 14:03] VITALS: BP 142/98; PULSE 60; RESP 14; TEMP 36.6; O2SAT 97; BMI 29.3
== END 2024-07-23 14:59 | disposition home or self-care (01) ==
LOC: HO.HMCC 13:12
PROVIDERS: PCP Internal Medicine; Visit Provider Internal Medicine
DX: Z00.01 Encounter for general adult medical examination with abnormal findings (principal); E06.3 Autoimmune thyroiditis; E55.9 Vitamin D deficiency, unspecified; E78.1 Pure hyperglyceridemia; I10 Essential (primary) hypertension

== ENCOUNTER → 2024-07-23 13:11 | Outpatient (BNVA) | payer OTHER, SELFPAY | PROVIDERS: PCP Internal Medicine; Visit Provider Internal Medicine | DX: Z13.89 Encounter for screening for other disorder (principal) ==

== ENCOUNTER 2024-08-14 07:55 | Outpatient (AMB) | payer OTHER, SELFPAY ==
--- OUTSIDE RECORDS SUMMARY | 2023-10-08 04:45 | XMS_ITS ---
Author Organization [facility] Address [address] [place] [address] Care Team Providers Care Educational Consultant Name Role Phone LIZ RACHEL Unavailable [phone] Medications Medication SIG (Take, Route, Frequency, Duration) Notes Start Date End Date Status Mounjaro 5 MG/0.5ML 5mg Subcutaneous weekly for 90 days PA Approved 10/24/2022 to 10/24/2023 Active Encounters Encounter Location Date Provider Diagnosis [facility] [address] [facility] [address] [place] [address] 10/08/2023 LIZ RACHEL Overweight (BMI 25.0-29.9) E66.3 ; BMI 27.0-27.9,adult Z68.27 ; Dietary counseling and surveillance Z71.3 ; Prediabetes R73.03 and Acquired hypothyroidism E03.9 Assessments Encounter Date Diagnosis (ICD Code) Assessment Notes Treatment Notes Treatment Clinical Notes Section Notes 10/08/2023 Overweight (BMI 25.0-29.9) (ICD-10 - E66.3) #Weight Management 10/08/2023 Enjoy your trip to [facility] and happy birthday Plan is to see [...] minimum of 6 months The most recent [place] Association of clinical endocrinologists and [place] [employer] of endocrinology guidelines recommend patients who [...] track activity level. Consider using apps like A-STAR, myfitZappyLabpal, lose it, stick as needed for self-monitoring and weight management. Consider group exercises. Consider hiring a director personal. Regular exercise is grace to sustainable health [...] counseling and psychiatry and Dr Sheffield at [facility]. We would like to cover regular topics [...] software and direct typing Please excuse inadvertent desktop support engineer or typing errors, or uncorrected word substitutions Although every attempt has been made by the provider to proofread this document, occasional misspellings and typographical errors may still be present Due to the previous pandemic, and the use of personal protective equipment (PPE) This may decrease voice recognition accuracy Inadvertent desktop support engineer errors may occur 10/08/2023 BMI 27.0-27.9,adult (ICD-10 - Z68.27) #Weight Management 10/08/2023 Enjoy your trip to [facility] and happy birthday Plan is to see if dual incretin's are covered under new plan if not which is unlikely Will transition her to [employer] The patient is in agreement with this [...] minimum of 6 months The most recent [place] [employer] of clinical endocrinologists and [place] [employer] of endocrinology guidelines recommend patients who [...] track activity level. Consider using apps like [employer] mionute excercise, CIBDOpal, lose it, stick as needed for self-monitoring and weight management. Consider group exercises. Consider hiring a director personal. Regular exercise is grace to sustainable health [...] counseling and psychiatry and Dr Sheffield at [facility]. We would like to cover regular topics [...] software and direct typing Please excuse inadvertent desktop support engineer or typing errors, or uncorrected word substitutions Although every attempt has been made by the provider to proofread this document, occasional misspellings and typographical errors may still be present Due to the previous pandemic, and the use of personal protective equipment (PPE) This may decrease voice recognition accuracy Inadvertent desktop support engineer errors may occur 10/08/2023 Dietary counseling and surveillance (ICD-10 - Z71.3) #Weight Management 10/08/2023 Enjoy your trip to [facility] and happy birthday Plan is to see [...] minimum of 6 months The most recent [place] [employer] of clinical endocrinologists and [place] [employer] of endocrinology guidelines recommend patients who [...] track activity level. Consider using apps like A-STAR, myfitnesspal, lose it, stick as needed for self-monitoring and weight management. Consider group exercises. Consider hiring a director personal. Regular exercise is grace to sustainable health [...] counseling and psychiatry and Dr Sheffield at [facility]. We would like to cover regular topics [...] software and direct typing Please excuse inadvertent desktop support engineer or typing errors, or uncorrected word substitutions Although every attempt has been made by the provider to proofread this document, occasional misspellings and typographical errors may still be present Due to the previous pandemic, and the use of personal protective equipment (PPE) This may decrease voice recognition accuracy Inadvertent desktop support engineer errors may occur 10/08/2023 Prediabetes (ICD-10 - R73.03) #Weight Management 10/08/2023 Enjoy your trip to [facility] and happy birthday Plan is to see [...] minimum of 6 months The most recent [place] Association of clinical endocrinologists and [place] [employer] of endocrinology guidelines recommend patients who [...] track activity level. Consider using apps like A-STAR, CIBDOpal, lose it, stick as needed for self-monitoring and weight management. Consider group exercises. Consider hiring a director personal. Regular exercise is grace to sustainable health [...] counseling and psychiatry and Dr Sheffield at [facility]. We would like to cover regular topics [...] software and direct typing Please excuse inadvertent desktop support engineer or typing errors, or uncorrected word substitutions Although every attempt has been made by the provider to proofread this document, occasional misspellings and typographical errors may still be present Due to the previous pandemic, and the use of personal protective equipment (PPE) This may decrease voice recognition accuracy Inadvertent desktop support engineer errors may occur 10/08/2023 Acquired hypothyroidism (ICD-10 - E03.9) #Weight Management 10/08/2023 Enjoy your trip to [facility] and happy birthday Plan is to see [...] minimum of 6 months The most recent [place] Association of clinical endocrinologists and [place] [employer] of endocrinology guidelines recommend patients who [...] track activity level. Consider using apps like A-STAR, CIBDOpal, lose it, stick as needed for self-monitoring and weight management. Consider group exercises. Consider hiring a director personal. Regular exercise is grace to sustainable health [...] counseling and psychiatry and Dr Sheffield at [facility]. We would like to cover regular topics [...] software and direct typing Please excuse inadvertent desktop support engineer or typing errors, or uncorrected word substitutions Although every attempt has been made by the provider to proofread this document, occasional misspellings and typographical errors may still be present Due to the previous pandemic, and the use of personal protective equipment (PPE) This may decrease voice recognition accuracy Inadvertent desktop support engineer errors may occur Plan Of Treatment Medication Medication Name Sig Start Date Stop Date Notes Mounjaro 5 MG/0.5ML 5mg Subcutaneous wee kly for 90 days PA Approved 10/24/2022 to 10/24/2023 Progress Notes * Sarah DOSHI eDOB:1975 (49 yo F)Acc No.[id number]:10/08/2023 Patient: Darshana Lory SIDHU Provider: Fortino RACHEL NP :1975 A ge:48 Y S ex:Female Date:10/08/2023 Address:[address] [facility], [id number] Subjective: * Chief Complaints: * * HPI: [...] then [facility] Patient now on Mounjaro 5mg and thriving reached target goal weight , Now on maintenance dosing Injection day Saturdays Traveling to [facility] tomorrow for her 48th birthday likely will [...] here. 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 B RI 27.0-27.9,adult - Z68.27 3 . D ietary counseling and surveillance - Z71.3 4 .?Prediabetes - R73.03 5 . A cquired hypothyroidism - E03.9 #Weight Management 10/08/2023 Enjoy your trip to [facility] and happy birthday Plan is to see [...] minimum of 6 months The most recent [place] Association of clinical endocrinologists and [place] [employer] of endocrinology guidelines recommend patients who [...] track activity level. Consider using apps like A-STAR, myfitZappyLabpal, lose it, stick as needed for self-monitoring and weight management. Consider group exercises. Consider hiring a director personal. Regular exercise is grace to sustainable health [...] counseling and psychiatry and Dr Sheffield at [facility]. We would like to cover regular topics [...] software and direct typing Please excuse inadvertent desktop support engineer or typing errors, or uncorrected word substitutions Although every attempt has been made by the provider to proofread this document, occasional misspellings and typographical errors may still be present Due to the previous pandemic, and the use of personal protective equipment (PPE) This may decrease voice recognition accuracy Inadvertent desktop support engineer errors may occur. Plan: * Treatment: * Images: Billing Information: * Visit Code: * Procedure Codes: * Electronic signature of ALBAN RACHEL on 08/14/2024 at 07:58 AM EDT Sign off status: Pending * Provider: H ASSEN BORHOT, NEUROPSYCHIATRIST Date: 0 10/08/2023 Generated for Kelly pagan/Norma/Asteritting on: 0 08/14/2024 07:58 AM EDT History and Physical Notes * [...] maintenance dosing Injection day Saturdays Traveling to [facility] tomorrow for her 48th birthday likely will [...] here. 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
--- NOTE | 2024-08-14 07:59 | A.OFFVIS_ITS ---
Vital Signs 08/14/24 08:00 Height 5 ft 3 in Weight 166 lb 14.239 oz BMI 29.6 BP 138/80 Blood Pressure Location Lt brachial Position Sitting Pulse 67 Pulse Source Pulse Oximeter Pulse Oximetry (%) 96 Oxygen Delivery Method Room Air Intake Visit Reasons: Hypothyroidism Intake Note: Patient present today for Hypothyroidism office visit. Butadiene Compressor Operator Required: No Accompanied by: Self / Same As Patient Allergies gluten Allergy (Unknown, Verified 08/14/24 08:05) Stomach Upset Medication List - Last Reconciled 08/14/24 by Akua Lynch MD levothyroxine 50 mcg PO DAILY 30 days olmesartan 5 mg PO DAILY HPI Comments Details: 48-year-old female coming in today for follow up of hypothyroidism. HPI from prior visit Patient has a longstanding history of hypothyroidism and was on low dose Levothyroxine. She then in early 2018 began experiencing swelling and tenderness in her neck. She discussed this with her PCP, who increased her dose of Levothyroxine to 88 mcg PO daily. TSH checked 11/04/18 with TSH 0.05. We subsequently decreased her Levothyroxine dose to 50 mcg PO daily. TSH subsequently normalized to 1.0 01/22/2019 and her energy level improved. She then remained on Levothyroxine 50 mcg PO daily. Her blood work from 11/02/2023 showed TSH of 0.58, and free T4 of 0.8. Labs from 02/09/2024 showed normal TSH of 0.62, normal free T4 of 0.94. Feels like always cold. Hot flashes almost resolved. Periods still every 3 months, LMP: 02/09. NO VTE, heart or stroke. No breast cancer. Maternal aunts x2 have breast cancer and sister had ovarian cancer. Weight stable Dyspnea on exertion. More exhausted. No hair or skin changes. Feels like she is more anxious. Palpitations intermittently, she did a stress test that was okay. Patient currently denies diarrhea or constipation, hair loss, changes in appearance of eyes or vision changes, tremors, increased diaphoresis or dry skin. ? Patient denies any difficulty swallowing, pain on swallowing or voice changes or difficulty breathing. Patient denies any history of childhood neck radiation. Denies having ever used lithium, amiodarone or biotin supplements. Patient denies any family history of thyroid cancer or thyroid disease. Interval history 07/19/2024: TSH 0.57, free T4 0.94, both within normal limits Continues on levothyroxine 50 mcg daily Physical exam General: sitting comfortably in no acute distress HEENT: normocephalic/atraumatic, moist oral mucosa Neck: supple, symmetrical, enlarged firm goiter, no nodules , no dorsocervical or supraclavicular fat pads Cardiac: normal heart sounds Pulm: normal breath sounds B/L, no added breath sounds Abd: not distended, no tenderness Extremities: no edema, no signs of myxedema, normal reflexes Neuro: AAO x3, Speech: normal, no facial droop, moving all 4 extremities 08/01/21 11/10/21 03/29/23 07:13 12:20 07:10 TSH 0.85 0.69 0.55 Free T4 1.20 1.10 1.18 11/02/23 07:53 TSH 0.58 Free T4 0.80 Laboratory Tests 02/09/24 09:44 TSH 0.62 Free T4 0.94 Laboratory Tests 08/01/21 11/10/21 03/29/23 07:13 12:20 07:10 TSH 0.85 0.69 0.55 Free T4 1.20 1.10 1.18 11/02/23 07/19/24 07:53 09:03 TSH 0.58 0.57 Free T4 0.80 0.94 US THYROID 11/2019 CLINICAL INFORMATION: Multinodular goiter. COMPARISON: Ultrasound thyroid soft tissue dated 11/12/2018 TECHNIQUE: Linear transducer barry-scale and color Doppler examination with attention to the region of the thyroid. FINDINGS: SIZE: Measurements of the thyroid lobes and nodules are given in sagittal, anteroposterior and transverse dimensions respectively. Right Thyroid Lobe: 5.6 x 2.2 x 2.0 cm, volume 12.5 mL. Previously 5.4 x 2.3 x 2.2 cm, volume 14.3 mL. Parenchyma: The gland echotexture is homogeneous. Thyroid vascularity is normal. Left Thyroid Lobe: 5.7 x 1.8 x 2.3 cm, volume 12.7 mL. Previously 5.7 x 2.1 x 2.5 cm, volume 15.7 mL. Parenchyma: The gland echotexture is homogeneous. Thyroid vascularity is normal. Isthmus: 0.6 cm in maximum AP dimension. Previously 0.60 cm. RIGHT THYROID LOBE: There are 3 nodules seen. 1. Location: Upper. Size: 0.2 x 0.1 x 0.2 cm. Previous: Not seen. Nodule characteristics: Cyst. 2. Location: Upper. Size: 0.3 x 0.3 x 0.3 cm. Previous: 0.4 x 0.3 x 0.3 cm. Nodule characteristics: Mild hypoechoic, ill-defined margins, no color flow. 3. Location: Upper to mid medial. Size: 0.5 x 0.3 x 0.4 cm. Previous: 0.5 x 0.3 x 0.4 cm. Nodule characteristics: Isoechoic/mild hypoechoic, no definite color flow. ISTHMUS: No nodules. LEFT THYROID LOBE: There are 2 nodules seen. 1. Location: Mid. Size: 0.2 x 0.1 x 0.2 cm. Previous: Not seen. Nodule characteristics: Cyst. 2. Location: Lower. Size: 0.2 x 0.2 x 0.2 cm. Previous: Not seen. Nodule characteristics: Mild hypoechoic, circumscribed, no color flow. NODES: No lymphadenopathy is seen in the tissue surrounding the thyroid gland. IMPRESSION: 1. Thyroid normal in size, borderline decreased in size from prior exam 11/12/2018. 2. A few scattered tiny benign-appearing nodules all under 1 cm. No adenopathy demonstrated. [facility] Medical History (Updated 07/28/24 @ 03:06 by Sulma Plaza MD) Essential hypertension Impaired fasting glucose Gene's thyroiditis Hypertriglyceridemia Vitamin D deficiency Allergic rhinitis History of Papanicolaou smear of cervix Hypothyroidism Surgical History Hx of colonoscopy Hx of LASIK History of section Family History Father HTN (hypertension) CVD (cardiovascular disease) Diabetes mellitus Mother Medical history non-contributory Paternal Uncle Esophageal cancer Brother No problems noted. Sister Ovarian cancer Sister No problems noted. Daughter No problems noted. 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 Labs from June 2024 shows she is biochemically euthyroid. She still continues to have some fatigue that is bothersome. Mostly it sounds like her sleep is quite poor with some stress from work as well. We discussed importance of sleep hygiene. Plan: -follow up in 1 year with TSH with a reflex free T4 -continue levothyroxine 50 mcg daily. -no need for repeat ultrasound of the thyroid as her ultrasound from 2019 did not show any findings that need to be followed, plus patient does not have any compressive symptoms and on exam she is noted to have a goiter which she has had before as well Follow up in 1 year Plan see above Orders: Orders TSH reflex Free T4 1 Year E06.3 - Autoimmune thyroiditis Medications: Changed From levothyroxine 50 mcg PO DAILY 30 days 90 tabs 4RF To levothyroxine 50 mcg PO DAILY 90 tabs 4RF Patient Instructions: Continue levothyroxine 50 mcg daily Do blood work a few days prior to your next follow up in 1 year , orders are in Coding Level of Care Code Est Pt Level 3 (25166) Diagnoses Gene's thyroiditis E06.3 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
[2024-08-14 08:00] VITALS: BP 138/80; PULSE 67; O2SAT 96; BMI 29.6
== END 2024-08-14 08:12 | disposition home or self-care (01) ==
LOC: HO.ENCR 07:55
PROVIDERS: PCP Internal Medicine; Visit Provider Student in an Organized Health Care Education/Training Program
DX: E06.3 Autoimmune thyroiditis (principal)
CPT/HCPCS: 99213

== ENCOUNTER 2024-10-22 07:59 | Outpatient (AMB) | payer OTHER, SELFPAY ==
--- OUTSIDE RECORDS SUMMARY | 2023-07-09 04:45 | XMS_ITS ---
Author Organization [facility] [address] Address [address] [place] [address] Care Team Providers Care Privacy Attorney Name Role Phone LIZ RACHEL Unavailable [phone] REASON FOR VISIT with seca Medications Medication SIG (Take, Route, Frequency, Duration) Notes Start Date End Date Status Mounjaro 5 MG/0.5ML 5mg Subcutaneous weekly; Duration: 90 days PA Approved 10/24/2022 to 10/24/2023 Active Encounters Encounter Location Date Provider Diagnosis [facility] [address] [place] [address] 07/09/2023 LIZ RACHEL Acquired hypothyroid ism E03.9 ; Prediabetes R73.03 ; BMI 25.0-25.9,adult Z68.25 and Dietary counseling and surveillance Z71.3 Assessments Encounter Date Diagnosis (ICD Code) Assessment Notes Treatment Notes Treatment Clinical Notes Section Notes 07/09/2023 Acquired hypothyroidism (ICD-10 - E03.9) #Weight Management 07/09/2023 We discussed plans moving forward including our compounded program as well as potentially transitioning to Wegovy given that her new insurance will not cover dual incretin's The patient is in agreement with this plan Will continue to monitor and see her back in 6 weeks Total time spent today was 30 minutes of which greater than 50% was spent on coordinating and counseling Patient has been found to be overweight with a BMI of (25). Patient has overweight class per BMI standards We are a board certified obesity and weight management practice Patient has trialed behavioral modification, dietary restrictions and exercise for a minimum of 6 months The most recent [place] [employer] of clinical endocrinologists and [place] [employer] of endocrinology guidelines recommend patients who have overweight BMI or obesity BMI, who also have metabolic syndrome, prediabetes, HLD, and other comorbidities or at risk of developing type 2 diabetes should aim for a weight loss goal of at least 10% of the baseline body weight Patient counseled regarding effects of GLP/GIP-1 agonists, and other FDA approved wgt loss meds with regards to a multifactorial approach of weight loss as mentioned above and not solely appetite suppression. We have discussed the mechanism of GLP-1's/GIP, dual incretins, appetitite suppressants I think this would be fantastic option for her given her metabolic workup and body composition We have discussed the risks and benefits and side effects including/and not limited to Sarcopenia, intestinal obstruction, constipation, nausea, lethargy, headache Discussed importance of protein consumption for muscle maintenance as well as strength and resistance training ,probiotics, B12 complex biotin , iron and other nutrients, To help avoid telogen effluvium We have discussed the lifelong requirement of nutritional supplementation And adherence to an exercise regimen as well as importance of follow-up The patient understands and agrees There is no history of medullary thyroid cancer or multiple endocrine neoplasia There is also no history of cardiovascular disease, hypertension, palpitations, or arrhythmias In the setting of potential stimulant/amphetami ne use such as phentermine We have also discussed risks and benefits, and the use of compounded medications to help offset the national shortages as well as financial implications vs trade name drugs Patient was reassured and welcomed to the practice. We discussed that we stress a hollistic medical approach with emphasis on lifestyle modification. Patient was informed that a healthy lifestyle with exercise and good eating habits can help reduce his risk of medical complications. He is explained that obesity increases his risk of diabetes, cardiovascular disease, or organ damage. We spent a lot of time discussing the relationship between food, exercise, sleep, mental health and obesity. Patient was counseled on the importance EATING local, organic food when possible. Patient was educated on clean 15 and dirty dozen. I provided information about reading books called The Food Rules by Segundo Mejia and Eat Fat Get Lean by Dr Maksim Blanc. Self education is important in the journey for weight management. Patient was offered diagnostic testing. We want to measure visceral adiposity, advanced body composition, adverse lipids, fatty acid balance, risk for heart disease and atherosclerosis, markers of inflammation and genetic susceptibility. Patient was counseled on weight management and was advised to lose weight using A. Meal Replacement Products We discussed the lifelong requirement of nutritional supplementation and adherence to an exercise regimen as well as importance of dietary follow-up Patient was educated on the replacement products called optifast. This is a good way of taking fixed amount of calories. It has been shown in studies to be ineffective weight management tool. We also recommend maintaining adequate protein intake and muscle composition, 1.5mg/kg This however has to be coupled with lifestyle intervention as well as laboratory data and EKG monitoring. It is impossible to know how a person will tolerate complete meal replacement. The side effects of meal replacement and weight loss could include syncopal attacks, dizziness, gallstones, potential cholecystectomy, possible heart attack and even . The benefits of meal replacement would be potential weight loss but no guarantees can be made. Meal replacement products are not covered by insurance. Once the patient has bought these products we cannot return them B. Lifestyle management which includes several strategies as below 1. Eat a low carbohydrate good fat good protein diet. Eliminate refined carbohydrates from the diet. Continue blood sugar and sugared beverages. Eat local organic when possible. Cook your own meals. Read food labels. None about healthy snacks. Portion control and food with low glycemic index 2. Exercise regularly. Try to get at least 6000 steps a day. Use a predominant to track activity level. Consider using apps like [employer], [employer], lose it, stick as needed for self-monitoring and weight management. Consider group exercises. Consider hiring a personal care assistant. Regular exercise is grace to sustainable health and prevents as a buffer against weight regain 3. Sleep is most important for healing. Tried to sleep at least 8 hours a night. A good quality sleep needs a sleep ritual with ideal room temperature of around 68. It might help to take a shower and have no electronics in the room and sleep in a very dark room without artificial light. Start her sleep routine and get up early in the morning and go to bed on time 4. Make a social connection. Surround yourself with positive people with positive energy. Connect with friends and family. 5. Get into the habit of meditating and mindfulness while doing everything. 6. Go outside and connect with nature. C. Prescription medications Patient was educated on the use of prescription medications for medical weight loss. This is a growing list and includes phentermine, Topamax,Qsymia, contrave, belviq and saxenda. All prescription medications could have side effects including but not limited to kidney stones, seizure disorder cardiac arrhythmias heart attack pancreatitis etc. etc.. Patient was encouraged to read the prescription insert and have coaching with their pharmacist and make an informed decision about taking medication and know that these medications are being prescribed with good intentions and we do not know how a patient would react to her medication. Sudden medications are FDA approved for weight loss and there is also off label use depending on patient's inability to afford medications in an attempt to lose weight D. Behavioral counseling was done to establish a relationship between food and an mood. Patient was provided information about local counseling and psychiatry and Dr Sheffield at [facility]. We would like to cover regular topics and build on low glycemic eating exercise mindful eating, using yoga and meditation along with deep breathing and connecting with friends and family. E. MASS PAT reviewed, Patient's current medications were reviewed and opinion was given on medication that can cause weight gain and can be substituted F. Patient was assessed for risk with obesity including and not limiting to atherosclerosis heart disease stroke kidney disease, restrictive lung disease, irritable bowel syndrome and overall mortality. Risk of developing prediabetes diabetes and metabolic syndrome was discussed G. Therapeutic plan: We have decided to make therapeutic plan which would include choosing wisely on calories restricting portion getting active, tracking weight, getting good quality sleep and working on time management H. Patient will follow up in (4) weeks for weight management Of note, some information is being carried forward from prior records for informational purposes only and is being cited so that efficiency, safety and quality of the patient's care is not compromised This note was prepared using voice recognition software and direct typing Please excuse inadvertent freight representative or typing errors, or uncorrected word substitutions Although every attempt has been made by the provider to proofread this document, occasional misspellings and typographical errors may still be present Due to the previous pandemic, and the use of personal protective equipment (PPE) This may decrease voice recognition accuracy Inadvertent freight representative errors may occur 07/09/2023 Prediabetes (ICD-10 - R73.03) #Weight Management 07/09/2023 We discussed plans moving forward including our compounded program as well as potentially transitioning to Wegovy given that her new insurance will not cover dual incretin's The patient is in agreement with this plan Will continue to monitor and see her back in 6 weeks Total time spent today was 30 minutes of which greater than 50% was spent on coordinating and counseling Patient has been found to be overweight with a BMI of (25). Patient has overweight class per BMI standards We are a board certified obesity and weight management practice Patient has trialed behavioral modification, dietary restrictions and exercise for a minimum of 6 months The most recent [place] [employer] of clinical endocrinologists and [place] [employer] of endocrinology guidelines recommend patients who have overweight BMI or obesity BMI, who also have metabolic syndrome, prediabetes, HLD, and other comorbidities or at risk of developing type 2 diabetes should aim for a weight loss goal of at least 10% of the baseline body weight Patient counseled regarding effects of GLP/GIP-1 agonists, and other FDA approved wgt loss meds with regards to a multifactorial approach of weight loss as mentioned above and not solely appetite suppression. We have discussed the mechanism of GLP-1's/GIP, dual incretins, appetitite suppressants I think this would be fantastic option for her given her metabolic workup and body composition We have discussed the risks and benefits and side effects including/and not limited to Sarcopenia, intestinal obstruction, constipation, nausea, lethargy, headache Discussed importance of protein consumption for muscle maintenance as well as strength and resistance training ,probiotics, B12 complex biotin , iron and other nutrients, To help avoid telogen effluvium We have discussed the lifelong requirement of nutritional supplementation And adherence to an exercise regimen as well as importance of follow-up The patient understands and agrees There is no history of medullary thyroid cancer or multiple endocrine neoplasia There is also no history of cardiovascular disease, hypertension, palpitations, or arrhythmias In the setting of potential stimulant/amphetami ne use such as phentermine We have also discussed risks and benefits, and the use of compounded medications to help offset the national shortages as well as financial implications vs trade name drugs Patient was reassured and welcomed to the practice. We discussed that we stress a hollistic medical approach with emphasis on lifestyle modification. Patient was informed that a healthy lifestyle with exercise and good eating habits can help reduce his risk of medical complications. He is explained that obesity increases his risk of diabetes, cardiovascular disease, or organ damage. We spent a lot of time discussing the relationship between food, exercise, sleep, mental health and obesity. Patient was counseled on the importance EATING local, organic food when possible. Patient was educated on clean 15 and dirty dozen. I provided information about reading books called The Food Rules by Segundo Mejia and Eat Fat Get Lean by Dr Maksim Blanc. Self education is important in the journey for weight management. Patient was offered diagnostic testing. We want to measure visceral adiposity, advanced body composition, adverse lipids, fatty acid balance, risk for heart disease and atherosclerosis, markers of inflammation and genetic susceptibility. Patient was counseled on weight management and was advised to lose weight using A. Meal Replacement Products We discussed the lifelong requirement of nutritional supplementation and adherence to an exercise regimen as well as importance of dietary follow-up Patient was educated on the replacement products called optifast. This is a good way of taking fixed amount of calories. It has been shown in studies to be ineffective weight management tool. We also recommend maintaining adequate protein intake and muscle composition, 1.5mg/kg This however has to be coupled with lifestyle intervention as well as laboratory data and EKG monitoring. It is impossible to know how a person will tolerate complete meal replacement. The side effects of meal replacement and weight loss could include syncopal attacks, dizziness, gallstones, potential cholecystectomy, possible heart attack and even . The benefits of meal replacement would be potential weight loss but no guarantees can be made. Meal replacement products are not covered by insurance. Once the patient has bought these products we cannot return them B. Lifestyle management which includes several strategies as below 1. Eat a low carbohydrate good fat good protein diet. Eliminate refined carbohydrates from the diet. Continue blood sugar and sugared beverages. Eat local organic when possible. Cook your own meals. Read food labels. None about healthy snacks. Portion control and food with low glycemic index 2. Exercise regularly. Try to get at least 6000 steps a day. Use a predominant to track activity level. Consider using apps like [employer], [employer], lose it, stick as needed for self-monitoring and weight management. Consider group exercises. Consider hiring a personal care assistant. Regular exercise is grace to sustainable health and prevents as a buffer against weight regain 3. Sleep is most important for healing. Tried to sleep at least 8 hours a night. A good quality sleep needs a sleep ritual with ideal room temperature of around 68. It might help to take a shower and have no electronics in the room and sleep in a very dark room without artificial light. Start her sleep routine and get up early in the morning and go to bed on time 4. Make a social connection. Surround yourself with positive people with positive energy. Connect with friends and family. 5. Get into the habit of meditating and mindfulness while doing everything. 6. Go outside and connect with nature. C. Prescription medications Patient was educated on the use of prescription medications for medical weight loss. This is a growing list and includes phentermine, Topamax,Qsymia, contrave, belviq and saxenda. All prescription medications could have side effects including but not limited to kidney stones, seizure disorder cardiac arrhythmias heart attack pancreatitis etc. etc.. Patient was encouraged to read the prescription insert and have coaching with their pharmacist and make an informed decision about taking medication and know that these medications are being prescribed with good intentions and we do not know how a patient would react to her medication. Sudden medications are FDA approved for weight loss and there is also off label use depending on patient's inability to afford medications in an attempt to lose weight D. Behavioral counseling was done to establish a relationship between food and an mood. Patient was provided information about local counseling and psychiatry and Dr Sheffield at [facility]. We would like to cover regular topics and build on low glycemic eating exercise mindful eating, using yoga and meditation along with deep breathing and connecting with friends and family. E. MASS PAT reviewed, Patient's current medications were reviewed and opinion was given on medication that can cause weight gain and can be substituted F. Patient was assessed for risk with obesity including and not limiting to atherosclerosis heart disease stroke kidney disease, restrictive lung disease, irritable bowel syndrome and overall mortality. Risk of developing prediabetes diabetes and metabolic syndrome was discussed G. Therapeutic plan: We have decided to make therapeutic plan which would include choosing wisely on calories restricting portion getting active, tracking weight, getting good quality sleep and working on time management H. Patient will follow up in (4) weeks for weight management Of note, some information is being carried forward from prior records for informational purposes only and is being cited so that efficiency, safety and quality of the patient's care is not compromised This note was prepared using voice recognition software and direct typing Please excuse inadvertent freight representative or typing errors, or uncorrected word substitutions Although every attempt has been made by the provider to proofread this document, occasional misspellings and typographical errors may still be present Due to the previous pandemic, and the use of personal protective equipment (PPE) This may decrease voice recognition accuracy Inadvertent freight representative errors may occur 07/09/2023 BMI 25.0-25.9,adult (ICD-10 - Z68.25) #Weight Management 07/09/2023 We discussed plans moving forward including our compounded program as well as potentially transitioning to Wegovy given that her new insurance will not cover dual incretin's The patient is in agreement with this plan Will continue to monitor and see her back in 6 weeks Total time spent today was 30 minutes of which greater than 50% was spent on coordinating and counseling Patient has been found to be overweight with a BMI of (25). Patient has overweight class per BMI standards We are a board certified obesity and weight management practice Patient has trialed behavioral modification, dietary restrictions and exercise for a minimum of 6 months The most recent [place] [employer] of clinical endocrinologists and [place] [employer] of endocrinology guidelines recommend patients who have overweight BMI or obesity BMI, who also have metabolic syndrome, prediabetes, HLD, and other comorbidities or at risk of developing type 2 diabetes should aim for a weight loss goal of at least 10% of the baseline body weight Patient counseled regarding effects of GLP/GIP-1 agonists, and other FDA approved wgt loss meds with regards to a multifactorial approach of weight loss as mentioned above and not solely appetite suppression. We have discussed the mechanism of GLP-1's/GIP, dual incretins, appetitite suppressants I think this would be fantastic option for her given her metabolic workup and body composition We have discussed the risks and benefits and side effects including/and not limited to Sarcopenia, intestinal obstruction, constipation, nausea, lethargy, headache Discussed importance of protein consumption for muscle maintenance as well as strength and resistance training ,probiotics, B12 complex biotin , iron and other nutrients, To help avoid telogen effluvium We have discussed the lifelong requirement of nutritional supplementation And adherence to an exercise regimen as well as importance of follow-up The patient understands and agrees There is no history of medullary thyroid cancer or multiple endocrine neoplasia There is also no history of cardiovascular disease, hypertension, palpitations, or arrhythmias In the setting of potential stimulant/amphetami ne use such as phentermine We have also discussed risks and benefits, and the use of compounded medications to help offset the national shortages as well as financial implications vs trade name drugs Patient was reassured and welcomed to the practice. We discussed that we stress a hollistic medical approach with emphasis on lifestyle modification. Patient was informed that a healthy lifestyle with exercise and good eating habits can help reduce his risk of medical complications. He is explained that obesity increases his risk of diabetes, cardiovascular disease, or organ damage. We spent a lot of time discussing the relationship between food, exercise, sleep, mental health and obesity. Patient was counseled on the importance EATING local, organic food when possible. Patient was educated on clean 15 and dirty dozen. I provided information about reading books called The Food Rules by Segundo Mejia and Eat Fat Get Lean by Dr Maksim Blanc. Self education is important in the journey for weight management. Patient was offered diagnostic testing. We want to measure visceral adiposity, advanced body composition, adverse lipids, fatty acid balance, risk for heart disease and atherosclerosis, markers of inflammation and genetic susceptibility. Patient was counseled on weight management and was advised to lose weight using A. Meal Replacement Products We discussed the lifelong requirement of nutritional supplementation and adherence to an exercise regimen as well as importance of dietary follow-up Patient was educated on the replacement products called optifast. This is a good way of taking fixed amount of calories. It has been shown in studies to be ineffective weight management tool. We also recommend maintaining adequate protein intake and muscle composition, 1.5mg/kg This however has to be coupled with lifestyle intervention as well as laboratory data and EKG monitoring. It is impossible to know how a person will tolerate complete meal replacement. The side effects of meal replacement and weight loss could include syncopal attacks, dizziness, gallstones, potential cholecystectomy, possible heart attack and even . The benefits of meal replacement would be potential weight loss but no guarantees can be made. Meal replacement products are not covered by insurance. Once the patient has bought these products we cannot return them B. Lifestyle management which includes several strategies as below 1. Eat a low carbohydrate good fat good protein diet. Eliminate refined carbohydrates from the diet. Continue blood sugar and sugared beverages. Eat local organic when possible. Cook your own meals. Read food labels. None about healthy snacks. Portion control and food with low glycemic index 2. Exercise regularly. Try to get at least 6000 steps a day. Use a predominant to track activity level. Consider using apps like [employer], [employer], lose it, stick as needed for self-monitoring and weight management. Consider group exercises. Consider hiring a personal care assistant. Regular exercise is grace to sustainable health and prevents as a buffer against weight regain 3. Sleep is most important for healing. Tried to sleep at least 8 hours a night. A good quality sleep needs a sleep ritual with ideal room temperature of around 68. It might help to take a shower and have no electronics in the room and sleep in a very dark room without artificial light. Start her sleep routine and get up early in the morning and go to bed on time 4. Make a social connection. Surround yourself with positive people with positive energy. Connect with friends and family. 5. Get into the habit of meditating and mindfulness while doing everything. 6. Go outside and connect with nature. C. Prescription medications Patient was educated on the use of prescription medications for medical weight loss. This is a growing list and includes phentermine, Topamax,Qsymia, contrave, belviq and saxenda. All prescription medications could have side effects including but not limited to kidney stones, seizure disorder cardiac arrhythmias heart attack pancreatitis etc. etc.. Patient was encouraged to read the prescription insert and have coaching with their pharmacist and make an informed decision about taking medication and know that these medications are being prescribed with good intentions and we do not know how a patient would react to her medication. Sudden medications are FDA approved for weight loss and there is also off label use depending on patient's inability to afford medications in an attempt to lose weight D. Behavioral counseling was done to establish a relationship between food and an mood. Patient was provided information about local counseling and psychiatry and Dr Sheffield at [facility]. We would like to cover regular topics and build on low glycemic eating exercise mindful eating, using yoga and meditation along with deep breathing and connecting with friends and family. E. MASS PAT reviewed, Patient's current medications were reviewed and opinion was given on medication that can cause weight gain and can be substituted F. Patient was assessed for risk with obesity including and not limiting to atherosclerosis heart disease stroke kidney disease, restrictive lung disease, irritable bowel syndrome and overall mortality. Risk of developing prediabetes diabetes and metabolic syndrome was discussed G. Therapeutic plan: We have decided to make therapeutic plan which would include choosing wisely on calories restricting portion getting active, tracking weight, getting good quality sleep and working on time management H. Patient will follow up in (4) weeks for weight management Of note, some information is being carried forward from prior records for informational purposes only and is being cited so that efficiency, safety and quality of the patient's care is not compromised This note was prepared using voice recognition software and direct typing Please excuse inadvertent freight representative or typing errors, or uncorrected word substitutions Although every attempt has been made by the provider to proofread this document, occasional misspellings and typographical errors may still be present Due to the previous pandemic, and the use of personal protective equipment (PPE) This may decrease voice recognition accuracy Inadvertent freight representative errors may occur 07/09/2023 Dietary counseling and surveillance (ICD-10 - Z71.3) #Weight Management 07/09/2023 We discussed plans moving forward including our compounded program as well as potentially transitioning to Wegovy given that her new insurance will not cover dual incretin's The patient is in agreement with this plan Will continue to monitor and see her back in 6 weeks Total time spent today was 30 minutes of which greater than 50% was spent on coordinating and counseling Patient has been found to be overweight with a BMI of (25). Patient has overweight class per BMI standards We are a board certified obesity and weight management practice Patient has trialed behavioral modification, dietary restrictions and exercise for a minimum of 6 months The most recent [place] [employer] of clinical endocrinologists and [place] [employer] of endocrinology guidelines recommend patients who have overweight BMI or obesity BMI, who also have metabolic syndrome, prediabetes, HLD, and other comorbidities or at risk of developing type 2 diabetes should aim for a weight loss goal of at least 10% of the baseline body weight Patient counseled regarding effects of GLP/GIP-1 agonists, and other FDA approved wgt loss meds with regards to a multifactorial approach of weight loss as mentioned above and not solely appetite suppression. We have discussed the mechanism of GLP-1's/GIP, dual incretins, appetitite suppressants I think this would be fantastic option for her given her metabolic workup and body composition We have discussed the risks and benefits and side effects including/and not limited to Sarcopenia, intestinal obstruction, constipation, nausea, lethargy, headache Discussed importance of protein consumption for muscle maintenance as well as strength and resistance training ,probiotics, B12 complex biotin , iron and other nutrients, To help avoid telogen effluvium We have discussed the lifelong requirement of nutritional supplementation And adherence to an exercise regimen as well as importance of follow-up The patient understands and agrees There is no history of medullary thyroid cancer or multiple endocrine neoplasia There is also no history of cardiovascular disease, hypertension, palpitations, or arrhythmias In the setting of potential stimulant/amphetami ne use such as phentermine We have also discussed risks and benefits, and the use of compounded medications to help offset the national shortages as well as financial implications vs trade name drugs Patient was reassured and welcomed to the practice. We discussed that we stress a hollistic medical approach with emphasis on lifestyle modification. Patient was informed that a healthy lifestyle with exercise and good eating habits can help reduce his risk of medical complications. He is explained that obesity increases his risk of diabetes, cardiovascular disease, or organ damage. We spent a lot of time discussing the relationship between food, exercise, sleep, mental health and obesity. Patient was counseled on the importance EATING local, organic food when possible. Patient was educated on clean 15 and dirty dozen. I provided information about reading books called The Food Rules by Segundo Mejia and Eat Fat Get Lean by Dr Maksim Blanc. Self education is important in the journey for weight management. Patient was offered diagnostic testing. We want to measure visceral adiposity, advanced body composition, adverse lipids, fatty acid balance, risk for heart disease and atherosclerosis, markers of inflammation and genetic susceptibility. Patient was counseled on weight management and was advised to lose weight using A. Meal Replacement Products We discussed the lifelong requirement of nutritional supplementation and adherence to an exercise regimen as well as importance of dietary follow-up Patient was educated on the replacement products called optifast. This is a good way of taking fixed amount of calories. It has been shown in studies to be ineffective weight management tool. We also recommend maintaining adequate protein intake and muscle composition, 1.5mg/kg This however has to be coupled with lifestyle intervention as well as laboratory data and EKG monitoring. It is impossible to know how a person will tolerate complete meal replacement. The side effects of meal replacement and weight loss could include syncopal attacks, dizziness, gallstones, potential cholecystectomy, possible heart attack and even . The benefits of meal replacement would be potential weight loss but no guarantees can be made. Meal replacement products are not covered by insurance. Once the patient has bought these products we cannot return them B. Lifestyle management which includes several strategies as below 1. Eat a low carbohydrate good fat good protein diet. Eliminate refined carbohydrates from the diet. Continue blood sugar and sugared beverages. Eat local organic when possible. Cook your own meals. Read food labels. None about healthy snacks. Portion control and food with low glycemic index 2. Exercise regularly. Try to get at least 6000 steps a day. Use a predominant to track activity level. Consider using apps like [employer], [employer], lose it, stick as needed for self-monitoring and weight management. Consider group exercises. Consider hiring a personal care assistant. Regular exercise is grace to sustainable health and prevents as a buffer against weight regain 3. Sleep is most important for healing. Tried to sleep at least 8 hours a night. A good quality sleep needs a sleep ritual with ideal room temperature of around 68. It might help to take a shower and have no electronics in the room and sleep in a very dark room without artificial light. Start her sleep routine and get up early in the morning and go to bed on time 4. Make a social connection. Surround yourself with positive people with positive energy. Connect with friends and family. 5. Get into the habit of meditating and mindfulness while doing everything. 6. Go outside and connect with nature. C. Prescription medications Patient was educated on the use of prescription medications for medical weight loss. This is a growing list and includes phentermine, Topamax,Qsymia, contrave, belviq and saxenda. All prescription medications could have side effects including but not limited to kidney stones, seizure disorder cardiac arrhythmias heart attack pancreatitis etc. etc.. Patient was encouraged to read the prescription insert and have coaching with their pharmacist and make an informed decision about taking medication and know that these medications are being prescribed with good intentions and we do not know how a patient would react to her medication. Sudden medications are FDA approved for weight loss and there is also off label use depending on patient's inability to afford medications in an attempt to lose weight D. Behavioral counseling was done to establish a relationship between food and an mood. Patient was provided information about local counseling and psychiatry and Dr Sheffield at [facility]. We would like to cover regular topics and build on low glycemic eating exercise mindful eating, using yoga and meditation along with deep breathing and connecting with friends and family. E. MASS PAT reviewed, Patient's current medications were reviewed and opinion was given on medication that can cause weight gain and can be substituted F. Patient was assessed for risk with obesity including and not limiting to atherosclerosis heart disease stroke kidney disease, restrictive lung disease, irritable bowel syndrome and overall mortality. Risk of developing prediabetes diabetes and metabolic syndrome was discussed G. Therapeutic plan: We have decided to make therapeutic plan which would include choosing wisely on calories restricting portion getting active, tracking weight, getting good quality sleep and working on time management H. Patient will follow up in (4) weeks for weight management Of note, some information is being carried forward from prior records for informational purposes only and is being cited so that efficiency, safety and quality of the patient's care is not compromised This note was prepared using voice recognition software and direct typing Please excuse inadvertent freight representative or typing errors, or uncorrected word substitutions Although every attempt has been made by the provider to proofread this document, occasional misspellings and typographical errors may still be present Due to the previous pandemic, and the use of personal protective equipment (PPE) This may decrease voice recognition accuracy Inadvertent freight representative errors may occur Plan Of Treatment Medication Medication Name Sig Start Date Stop Date Notes Mounjaro 5 MG/0.5ML 5mg Subcutaneous wee kly; Duration: 90 days PA Approved 10/24/2022 to 10/24/2023 Progress Notes * Sarah DOSHI eDOB:1975 (49 yo F)Acc No.[id number]:07/09/2023 Patient: Darshana Lory SIDHU Provider: Fortino RACHEL NP :1975 A ge:47 Y S ex:Female Date:07/09/2023 [id number] Subjective: * Chief Complaints: * 1 . With seca. * HPI: C onstitutional: Patient is here today for a weight management f/u visit Patient seen and examined. Full past medical history, social history, family history, allergies and current medications were reviewed and updated. Body composition analysis reviewed today, as expected increased BMI, visceral adiposity, fat mass index, waist cirumference Good skeletal mass composition, Good water composition Caloric energy expenditure discussed #Weight Management 07/09/2023 Patient is concerned because she is changing health insurance plans next month She will be on health [employer] which does not cover the dual incretin's We did discuss backup plan such as Wegovy and or our compounded program Patient now on Mounjaro 5mg and thriving reached target goal weight , Now on maintenance dosing Injection day Saturdays happy with current dosage and progress thus far no significant side effects, minimal mausea, no constipation Discussed importance of protein consumption for muscle maintenance, strength and resistance training as well as probiotics, B12 complex biotin , iron and other nutrients, To also help avoid telogen effluvium while on weight loss meds such as GLP-1 *in offce hgb a1c 5.3, 12/15/2022 07/09/2023, Weight , BMI 05/21/2023, Weight 144lbs , BMI 25 04/02/2023, Weight 143lbs , BMI 25, (-9lbs) 02/20/2023, Weight 152lbs , BMI (-3lbs) 12/15/2022: Weight 155lbs, BMI (-12lbs) 09/29/2022: Weight lbs, 167lbs, BMI 30: Patient referred to us from sister, who is patient here. 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 Diet: grab and go, gluten allergy. not calorie counting/no portion controlling trialed weight watchers in past, did lose 5lbs Exercise: Currently not tracking, sedentary job, steps daily. Non-smoker. ETOH use: socially. * ROS: A ll Other Systems: Review of Systems (ROS) A ll others negative except those mentioned in HPI. * Medical History: Objective: * Vitals: * Examination: G eneral Examination: GENERAL APPEARANCE: i n no acute distress, well developed, well nourished. H EAD: n ormocephalic, atraumatic. E YES: p upils equal, round, reactive to light and accommodation. E ARS: n ormal. O RAL CAVITY: m ucosa moist. T HROAT: c lear. N JORDAN/THYROID: n jordan supple, full range of motion, no cervical lymphadenopathy. S KIN: n o suspicious lesions, warm and dry. H EART: n o murmurs, regular rate and rhythm, S1, S2 normal. L UNGS: c lear to auscultation bilaterally. A BDOMEN: n ormal, bowel sounds present, soft, nontender, nondistended. E XTREMITIES: n o clubbing, cyanosis, or edema. N EUROLOGIC: n onfocal, motor strength normal upper and lower extremities, sensory exam intact. Assessment: * Assessment: 1. A cquired hypothyroidism - E03.9 2 . P rediabetes - R73.03 ?3. B IN 25.0-25.9,adult - Z68.25 4 . D ietary counseling and surveillance - Z71.3 #Weight Management 07/09/2023 We discussed plans moving forward including our compounded program as well as potentially transitioning to Wegovy given that her new insurance will not cover dual incretin's The patient is in agreement with this plan Will continue to monitor and see her back in 6 weeks Total time spent today was 30 minutes of which greater than 50% was spent on coordinating and counseling Patient has been found to be overweight with a BMI of (25). Patient has overweight class per BMI standards We are a board certified obesity and weight management practice Patient has trialed behavioral modification, dietary restrictions and exercise for a minimum of 6 months The most recent [place] Association of clinical endocrinologists and [place] [employer] of endocrinology guidelines recommend patients who have overweight BMI or obesity BMI, who also have metabolic syndrome, prediabetes, HLD, and other comorbidities or at risk of developing type 2 diabetes should aim for a weight loss goal of at least 10% of the baseline body weight Patient counseled regarding effects of GLP/GIP-1 agonists, and other FDA approved wgt loss meds with regards to a multifactorial approach of weight loss as mentioned above and not solely appetite suppression. We have discussed the mechanism of GLP-1's/GIP, dual incretins, appetitite suppressants I think this would be fantastic option for her given her metabolic workup and body composition We have discussed the risks and benefits and side effects including/and not limited to Sarcopenia, intestinal obstruction, constipation, nausea, lethargy, headache Discussed importance of protein consumption for muscle maintenance as well as strength and resistance training ,probiotics, B12 complex biotin , iron and other nutrients, To help avoid telogen effluvium We have discussed the lifelong requirement of nutritional supplementation And adherence to an exercise regimen as well as importance of follow-up The patient understands and agrees There is no history of medullary thyroid cancer or multiple endocrine neoplasia There is also no history of cardiovascular disease, hypertension, palpitations, or arrhythmias In the setting of potential stimulant/amphetamine use such as phentermine We have also discussed risks and benefits, and the use of compounded medications to help offset the national shortages as well as financial implications vs trade name drugs Patient was reassured and welcomed to the practice. We discussed that we stress a hollistic medical approach with emphasis on lifestyle modification. Patient was informed that a healthy lifestyle with exercise and good eating habits can help reduce his risk of medical complications. He is explained that obesity increases his risk of diabetes, cardiovascular disease, or organ damage. We spent a lot of time discussing the relationship between food, exercise, sleep, mental health and obesity. Patient was counseled on the importance EATING local, organic food when possible. Patient was educated on clean 15 and dirty dozen. I provided information about reading books called The Food Rules by Segundo Mejia and Eat Fat Get Lean by Dr Maksim Blanc. Self education is important in the journey for weight management. Patient was offered diagnostic testing. We want to measure visceral adiposity, advanced body composition, adverse lipids, fatty acid balance, risk for heart disease and atherosclerosis, markers of inflammation and genetic susceptibility. Patient was counseled on weight management and was advised to lose weight using A. Meal Replacement Products We discussed the lifelong requirement of nutritional supplementation and adherence to an exercise regimen as well as importance of dietary follow-up Patient was educated on the replacement products called optifast. This is a good way of taking fixed amount of calories. It has been shown in studies to be ineffective weight management tool. We also recommend maintaining adequate protein intake and muscle composition, 1.5mg/kg This however has to be coupled with lifestyle intervention as well as laboratory data and EKG monitoring. It is impossible to know how a person will tolerate complete meal replacement. The side effects of meal replacement and weight loss could include syncopal attacks, dizziness, gallstones, potential cholecystectomy, possible heart attack and even . The benefits of meal replacement would be potential weight loss but no guarantees can be made. Meal replacement products are not covered by insurance. Once the patient has bought these products we cannot return them B. Lifestyle management which includes several strategies as below 1. Eat a low carbohydrate good fat good protein diet. Eliminate refined carbohydrates from the diet. Continue blood sugar and sugared beverages. Eat local organic when possible. Cook your own meals. Read food labels. None about healthy snacks. Portion control and food with low glycemic index 2. Exercise regularly. Try to get at least 6000 steps a day. Use a predominant to track activity level. Consider using apps like [employer], [employer], lose it, stick as needed for self-monitoring and weight management. Consider group exercises. Consider hiring a personal care assistant. Regular exercise is grace to sustainable health and prevents as a buffer against weight regain 3. Sleep is most important for healing. Tried to sleep at least 8 hours a night. A good quality sleep needs a sleep ritual with ideal room temperature of around 68. It might help to take a shower and have no electronics in the room and sleep in a very dark room without artificial light. Start her sleep routine and get up early in the morning and go to bed on time 4. Make a social connection. Surround yourself with positive people with positive energy. Connect with friends and family. 5. Get into the habit of meditating and mindfulness while doing everything. 6. Go outside and connect with nature. C. Prescription medications Patient was educated on the use of prescription medications for medical weight loss. This is a growing list and includes phentermine, Topamax,Qsymia, contrave, belviq and saxenda. All prescription medications could have side effects including but not limited to kidney stones, seizure disorder cardiac arrhythmias heart attack pancreatitis etc. etc.. Patient was encouraged to read the prescription insert and have coaching with their pharmacist and make an informed decision about taking medication and know that these medications are being prescribed with good intentions and we do not know how a patient would react to her medication. Sudden medications are FDA approved for weight loss and there is also off label use depending on patient's inability to afford medications in an attempt to lose weight D. Behavioral counseling was done to establish a relationship between food and an mood. Patient was provided information about local counseling and psychiatry and Dr Sheffield at [facility]. We would like to cover regular topics and build on low glycemic eating exercise mindful eating, using yoga and meditation along with deep breathing and connecting with friends and family. E. MASS PAT reviewed, Patient's current medications were reviewed and opinion was given on medication that can cause weight gain and can be substituted F. Patient was assessed for risk with obesity including and not limiting to atherosclerosis heart disease stroke kidney disease, restrictive lung disease, irritable bowel syndrome and overall mortality. Risk of developing prediabetes diabetes and metabolic syndrome was discussed G. Therapeutic plan: We have decided to make therapeutic plan which would include choosing wisely on calories restricting portion getting active, tracking weight, getting good quality sleep and working on time management H. Patient will follow up in (4) weeks for weight management Of note, some information is being carried forward from prior records for informational purposes only and is being cited so that efficiency, safety and quality of the patient's care is not compromised This note was prepared using voice recognition software and direct typing Please excuse inadvertent freight representative or typing errors, or uncorrected word substitutions Although every attempt has been made by the provider to proofread this document, occasional misspellings and typographical errors may still be present Due to the previous pandemic, and the use of personal protective equipment (PPE) This may decrease voice recognition accuracy Inadvertent freight representative errors may occur. Plan: * Treatment: * Images: Billing Information: * Visit Code: * Procedure Codes: * Electronic signature of ALBAN RACHEL on 10/22/2024 at 08:02 AM EDT Sign off status: Pending * Provider: Fortino RACHEL NP Date: 07/09/2023 Generated for Kelly pagan/Norma/Micaela on: 0 10/22/2024 08:02 AM EDT History and Physical Notes * HPI (History of Present Illness) Category Sub-Category Detail Notes Category Not es Constitutional Patient is here today for a weight management f/u visit Patient seen and examined. Full past medical history, social history, family history, allergies and current medications were reviewed and updated. Body composition analysis reviewed today, as expected increased BMI, visceral adiposity, fat mass index, waist cirumference Good skeletal mass composition, Good water composition Caloric energy expenditure discussed #Weight Management 07/09/2023 Patient is concerned because she is changing health insurance plans next month She will be on health Unfortunately which does not cover the dual incretin's We did discuss backup plan such as Wegovy and or our compounded program Patient now on Mounjaro 5mg and thriving reached target goal weight , Now on maintenance dosing Injection day Saturdays happy with current dosage and progress thus far no significant side effects, minimal mausea, no constipation Discussed importance of protein consumption for muscle maintenance, strength and resistance training as well as probiotics, B12 complex biotin , iron and other nutrients, To also help avoid telogen effluvium while on weight loss meds such as GLP-1 *in offce hgb a1c 5.3, 12/15/2022 07/09/2023, Weight , BMI 05/21/2023, Weight 144lbs , BMI 25 04/02/2023, Weight 143lbs , BMI 25, (-9lbs) 02/20/2023, Weight 152lbs , BMI (-3lbs) 12/15/2022: Weight 155lbs, BMI (-12lbs) 09/29/2022: Weight lbs, 167lbs, BMI 30: Patient referred to us from sister, who is patient here. 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 Diet: grab and go, gluten allergy. not calorie counting/no portion controlling trialed weight watchers in past, did lose 5lbs Exercise: Currently not tracking, sedentary job, steps daily. Non-smoker. ETOH use: socially Examination Category Sub-Category Detail Notes Category Not es General Examination GENERAL APPEARANCE: in no ac jordy distress, well developed, well nourished HEAD: normocephalic, atrau matic EYES: pupils equal, round, reactive to light and accommodation EARS: normal THROAT: clear NECK/THYROID: neck supple, full ra nge of motion, no cervical lymphadenopathy HEART: no murmurs, regular rate and rhythm, S1, S2 normal LUNGS: clear to auscultatio n bilaterally ABDOMEN: normal, bowel sounds present, soft, nontender, nondistended NEUROLOGIC: nonfocal, motor stre ngth normal upper and lower extremities, sensory exam intact SKIN: no suspicious lesion s, warm and dry EXTREMITIES: no clubbing, cyanosi s, or edema ORAL CAVITY: mucosa moist
--- OUTSIDE RECORDS SUMMARY | 2023-10-08 04:45 | XMS_ITS ---
Author Organization [facility] Address [address] [place] [address] Care Team Providers Care Pure Culture Operator Name Role Phone LIZ RACHEL Unavailable [phone] Medications Medication SIG (Take, Route, Frequency, Duration) Notes Start Date End Date Status Mounjaro 5 MG/0.5ML 5mg Subcutaneous weekly; Duration: 90 days PA Approved 10/24/2022 to 10/24/2023 Active Encounters Encounter Location Date Provider Diagnosis [facility] [address] [place] [address] 10/08/2023 LIZ RACHEL Overweight (BMI 25.0-29.9) E66.3 ; BMI 27.0-27.9,adult Z68.27 ; Dietary counseling and surveillance Z71.3 ; Prediabetes R73.03 and Acquired hypothyroidism E03.9 Assessments Encounter Date Diagnosis (ICD Code) Assessment Notes Treatment Notes Treatment Clinical Notes Section Notes 10/08/2023 Overweight (BMI 25.0-29.9) (ICD-10 - E66.3) #Weight Management 10/08/2023 Enjoy your trip to [facility] and happy birthday Plan is to see if dual incretin's are covered under new plan if not which is unlikely Will transition her to Wegovy The patient is in agreement with this plan Will continue to monitor and see her back in 6 weeks Total time spent today was 30 minutes of which greater than 50% was spent on coordinating and counseling Patient has been found to be overweight with a BMI of (27). Patient has overweight class per BMI standards We are a board certified obesity and weight management practice Patient has trialed behavioral modification, dietary restrictions and exercise for a minimum of 6 months The most recent [place] [employer] of clinical endocrinologists and [place] [employer]in[employer] guidelines recommend patients who [...] track activity level. Consider using apps like Medlumics, MESIpal, lose it, stick as needed for self-monitoring and weight management. Consider group exercises. Consider hiring a personal care service provider. Regular exercise is grace to sustainable health [...] counseling and psychiatry and Dr Sheffield at [facility]. We would like to cover regular topics [...] software and direct typing Please excuse inadvertent airplane navigator or typing errors, or uncorrected word substitutions Although every attempt has been made by the provider to proofread this document, occasional misspellings and typographical errors may still be present Due to the previous pandemic, and the use of personal protective equipment (PPE) This may decrease voice recognition accuracy Inadvertent airplane navigator errors may occur 10/08/2023 BMI 27.0-27.9,adult (ICD-10 - Z68.27) #Weight Management 10/08/2023 Enjoy your trip to [facility] and happy birthday Plan is to see if dual incretin's are covered under new plan if not which is unlikely Will transition her to Cher The patient is in agreement with this plan Will continue to monitor and see her back in 6 weeks Total time spent today was 30 minutes of which greater than 50% was spent on coordinating and counseling Patient has been found to be overweight with a BMI of (27). Patient has overweight class per BMI standards We are a board certified obesity and weight management practice Patient has trialed behavioral modification, dietary restrictions and exercise for a minimum of 6 months The most recent [place] [employer] of clinical endocrinologists and [place] [employer] end[employer]in[employer] guidelines recommend patients who [...] track activity level. Consider using apps like [employer] exceOxyrane UKise, myOne [place] Mediapal, lose it, stick as needed for self-monitoring and weight management. Consider group exercises. Consider hiring a personal care service provider. Regular exercise is grace to sustainable health [...] counseling and psychiatry and Dr Sheffield at [facility]. We would like to cover regular topics [...] software and direct typing Please excuse inadvertent airplane navigator or typing errors, or uncorrected word substitutions Although every attempt has been made by the provider to proofread this document, occasional misspellings and typographical errors may still be present Due to the previous pandemic, and the use of personal protective equipment (PPE) This may decrease voice recognition accuracy Inadvertent airplane navigator errors may occur 10/08/2023 Dietary counseling and surveillance (ICD-10 - Z71.3) #Weight Management 10/08/2023 Enjoy your trip to [facility] and happy birthday Plan is to see if dual incretin's are covered under new plan if not which is unlikely Will transition her to Wegovy The patient is in agreement with this plan Will continue to monitor and see her back in 6 weeks Total time spent today was 30 minutes of which greater than 50% was spent on coordinating and counseling Patient has been found to be overweight with a BMI of (27). Patient has overweight class per BMI standards We are a board certified obesity and weight management practice Patient has trialed behavioral modification, dietary restrictions and exercise for a minimum of 6 months The most recent [place] [employer] of clinical endocrinologists and [place] [employer] endocrin[employer] guidelines recommend patients who [...] track activity level. Consider using apps like Medlumics, myfitnesspal, lose it, stick as needed for self-monitoring and weight management. Consider group exercises. Consider hiring a personal care service provider. Regular exercise is grace to sustainable health [...] counseling and psychiatry and Dr Sheffield at [facility]. We would like to cover regular topics [...] software and direct typing Please excuse inadvertent airplane navigator or typing errors, or uncorrected word substitutions Although every attempt has been made by the provider to proofread this document, occasional misspellings and typographical errors may still be present Due to the previous pandemic, and the use of personal protective equipment (PPE) This may decrease voice recognition accuracy Inadvertent airplane navigator errors may occur 10/08/2023 Prediabetes (ICD-10 - R73.03) #Weight Management 10/08/2023 Enjoy your trip to [facility] and happy birthday Plan is to see if dual incretin's are covered under new plan if not which is unlikely Will transition her to Wegovy The patient is in agreement with this plan Will continue to monitor and see her back in 6 weeks Total time spent today was 30 minutes of which greater than 50% was spent on coordinating and counseling Patient has been found to be overweight with a BMI of (27). Patient has overweight class per BMI standards We are a board certified obesity and weight management practice Patient has trialed behavioral modification, dietary restrictions and exercise for a minimum of 6 months The most recent [place] [employer] of clinical endocrinologists and [place] [employer] endocrin[employer] guidelines recommend patients who [...] track activity level. Consider using apps like Medlumics, MESIpal, lose it, stick as needed for self-monitoring and weight management. Consider group exercises. Consider hiring a personal care service provider. Regular exercise is grace to sustainable health [...] counseling and psychiatry and Dr Sheffield at [facility]. We would like to cover regular topics [...] software and direct typing Please excuse inadvertent airplane navigator or typing errors, or uncorrected word substitutions Although every attempt has been made by the provider to proofread this document, occasional misspellings and typographical errors may still be present Due to the previous pandemic, and the use of personal protective equipment (PPE) This may decrease voice recognition accuracy Inadvertent airplane navigator errors may occur 10/08/2023 Acquired hypothyroidism (ICD-10 - E03.9) #Weight Management 10/08/2023 Enjoy your trip to [facility] and happy birthday Plan is to see if dual incretin's are covered under new plan if not which is unlikely Will transition her to Wegovy The patient is in agreement with this plan Will continue to monitor and see her back in 6 weeks Total time spent today was 30 minutes of which greater than 50% was spent on coordinating and counseling Patient has been found to be overweight with a BMI of (27). Patient has overweight class per BMI standards We are a board certified obesity and weight management practice Patient has trialed behavioral modification, dietary restrictions and exercise for a minimum of 6 months The most recent [place] [employer] of clinical endocrinologists and [place] [employer] endocrinology guidelines recommend patients who [...] track activity level. Consider using apps like Medlumics, MESIpal, lose it, stick as needed for self-monitoring and weight management. Consider group exercises. Consider hiring a personal care service provider. Regular exercise is grace to sustainable health [...] counseling and psychiatry and Dr Sheffield at [facility]. We would like to cover regular topics [...] software and direct typing Please excuse inadvertent airplane navigator or typing errors, or uncorrected word substitutions Although every attempt has been made by the provider to proofread this document, occasional misspellings and typographical errors may still be present Due to the previous pandemic, and the use of personal protective equipment (PPE) This may decrease voice recognition accuracy Inadvertent airplane navigator errors may occur Plan Of Treatment Medication Medication Name Sig Start Date Stop Date Notes Mounjaro 5 MG/0.5ML 5mg Subcutaneous wee kly; Duration: 90 days PA Approved 10/24/2022 to 10/24/2023 Progress Notes * Sarah DOSHI eDOB:1975 (49 yo F)Acc No.[id number]:10/08/2023 Patient: Darshana Lory SIDHU Provider: Fortino RACHEL NP :1975 A ge:48 Y S ex:Female Date:10/08/2023 Address:[facility], [id number] Subjective: * Chief Complaints: * * HPI: C onstitutional: Patient is here today for a weight management f/u visit Patient seen and examined. Full past medical history, social history, family history, allergies and current medications were reviewed and updated. Body composition analysis reviewed today, as expected increased BMI, visceral adiposity, fat mass index, waist cirumference Good skeletal mass composition, Good water composition Caloric energy expenditure discussed #Weight Management 10/08/2023 Patient is now on HNE, Recent insurance change now on Mounjaro for another 3 doses then [facility] now on Mounjaro 5mg and thriving reached target goal weight , Now on maintenance dosing Injection day Saturdays Traveling to [facility] tomorrow for her 48th birthday likely will skip this week's dose happy with current dosage and progress thus far no significant side effects, minimal mausea, no constipation Discussed importance of protein consumption for muscle maintenance, strength and resistance training as well as probiotics, B12 complex biotin , iron and other nutrients, To also help avoid telogen effluvium while on weight loss meds such as GLP-1 *in offce hgb a1c 5.3, 12/15/2022 10/08/2023, Weight , BMI 08/01/2023, Weight 152lbs , BMI 27 05/21/2023, Weight 144lbs , BMI 25 04/02/2023, Weight 143lbs , BMI 25, (-9lbs) 02/20/2023, Weight 152lbs , BMI (-3lbs) 12/15/2022: Weight 155lbs, BMI (-12lbs) 09/29/2022: Weight lbs, 167lbs, BMI 30: Patient referred to us from sister, who is patient here. 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 T HROAT: kiara nichols. N JORDAN/THYROID: n jordan supple, full range [...] sensory exam intact. Assessment: * Assessment: 1. O verweight (BMI 25.0-29.9) - E66.3 (Primary) 2 . B MO 27.0-27.9,adult - Z68.27 3 . D ietary counseling and surveillance - Z71.3 4 .?Prediabetes - R73.03 5 . A cquired hypothyroidism - E03.9 #Weight Management 10/08/2023 Enjoy your trip to [facility] and happy birthday Plan is to see if dual incretin's are covered under new plan if not which is unlikely Will transition her to Wegovy The patient is in agreement with this plan Will continue to monitor and see her back in 6 weeks Total time spent today was 30 minutes of which greater than 50% was spent on coordinating and counseling Patient has been found to be overweight with a BMI of (27). Patient has overweight class per BMI standards We are a board certified obesity and weight management practice Patient has trialed behavioral modification, dietary restrictions and exercise for a minimum of 6 months The most recent [place] [employer] of clinical endocrinologists and [place] [employer] of endocrinology guidelines recommend patients who [...] track activity level. Consider using apps like Medlumics, [email or web address], lose it, stick as needed for self-monitoring and weight management. Consider group exercises. Consider hiring a personal care service provider. Regular exercise is grace to sustainable health [...] counseling and psychiatry and Dr Sheffield at [facility]. We would like to cover regular topics [...] software and direct typing Please excuse inadvertent airplane navigator or typing errors, or uncorrected word substitutions Although every attempt has been made by the provider to proofread this document, occasional misspellings and typographical errors may still be present Due to the previous pandemic, and the use of personal protective equipment (PPE) This may decrease voice recognition accuracy Inadvertent airplane navigator errors may occur. Plan: * Treatment: * Images: Billing Information: * Visit Code: * Procedure Codes: * Electronic signature of ALBAN RACHEL on 10/22/2024 at 08:02 AM EDT Sign off status: Pending * Provider: Fortino RACHEL NP Date: 0 10/08/2023 Generated for Kelly pagan/Norma/Micaela on: 0 10/22/2024 [...] composition Caloric energy expenditure discussed #Weight Management 10/08/2023 Patient is now on HNE, Recent insurance change now on Mounjaro for another 3 doses then likely will need to transition to Wego Patient now on Mounjaro 5mg and thriving reached target goal weight , Now on maintenance dosing Injection day Saturdays Traveling to [facility] tomorrow for her 48th birthday likely will skip this week's dose happy with current dosage and progress thus far no significant side effects, minimal mausea, no constipation Discussed importance of protein consumption for muscle maintenance, strength and resistance training as well as probiotics, B12 complex biotin , iron and other nutrients, To also help avoid telogen effluvium while on weight loss meds such as GLP-1 *in offce hgb a1c 5.3, 12/15/2022 10/08/2023, Weight , BMI 08/01/2023, Weight 152lbs , BMI 27 05/21/2023, Weight 144lbs , BMI 25 04/02/2023, Weight 143lbs , BMI 25, (-9lbs) 02/20/2023, Weight 152lbs , BMI (-3lbs) 12/15/2022: Weight 155lbs, BMI (-12lbs) 09/29/2022: Weight lbs, 167lbs, BMI 30: Patient referred to us from sister, who is patient here. 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
--- OUTSIDE RECORDS SUMMARY | 2024-10-22 08:03 | XMS_ITS ---
Author Name [facility] Organization Unknown Care Team Organization Name Specialty Phone Email Start Date End Da te [facility] 09/13/2023 4
--- OUTSIDE RECORDS SUMMARY | 2024-10-22 08:03 | XMS_ITS | Patient Health Record ---
Author Organization [facility] [address] Address [address] [place] [address] Care Team Providers Care Sample Tester Grinder Name Role Phone LIZ RACHEL Unavailable [phone] Allergies No Known Allergies Reason For Referral No Information Medications Medication SIG (Take, Route, Frequency, Duration) Notes Start Date End Date Status Ondansetron 4 MG 1 tablet on the tongue and allow to dissolve prn nausea/vomiting Orally twice day; Duration: 30 days 08/08/2023 Active Zepbound 5 MG/0.5ML 5mg Subcutaneous weekly; Duration: 30 days 08/23/2023 Active Levothyroxine Sodium 50 MCG TAKE 1 TABLET BY MOUTH EVERY DAY Oral; Duration: 90 Days Active Mounjaro 5 MG/0.5ML 5mg Subcutaneous weekly; Duration: 90 days PA Approved 10/24/2022 to 10/24/2023 Active Albuterol Sulfate HFA 108 (90 Base) MCG/ACT Inhalation; Duration: 30 Days Active Social History Tobacco Use: Social History Observation Description Date Details (start date - stop date) Never Smoker NA - NA Tobacco Use/Smoking Question Answer Notes Are you a nonsmoker Alcohol Screen (Audit-C) Question Answer Notes Did you have a drink contain ing alcohol in the past year? Yes How often did you have a dri nk containing alcohol in the past year? Monthly or less (1 point) Points 1 Interpretation Negative Problems Problem Type SNOMED Code ICD Code Onset Dates Problem Status W/U Status Risk Notes Problem Obesity due to excess calories (526259455) Other obesity due to excess calories (E66.09) Active confirmed Problem Acquired hypothyroidism (181073232) Acquired hypothyroidism (E03.9) Active confirmed Problem Body mass index 30+ - obesity (895350236) Body mass index [BMI] 30.0-30.9, adult (Z68.30) Active confirmed Plan Of Treatment No Information Insurance Providers Payer Name Payer Address Payer Phone Subscriber Number Group Number Insured Name Patient Relationship to Insured Coverage Start Date Coverage End Date [facility] [address] [place] [address] [id number] Lory Doshi Self - patient is the insured 4 Medical (General) History Medical History History ICD Code thyroid disease Surgical History Surgery Date(Month/Year) section 12/31/2012
--- NOTE | 2024-10-22 08:22 | MHC.PC.OV ---
Vital Signs 10/22/24 08:23 Height 5 ft 3 in Weight 164 lb BMI 29.0 BP 122/88 Blood Pressure Location Lt brachial Position Sitting Respiration 16 Pulse 82 Temp 98.3 F Temp Source Oral Pulse Oximetry (%) 97 Oxygen Delivery Method Room Air Intake Visit Reasons: 3m follow up Intake Note: Pt is here today for her 3mo. f/u Litigation Manager Required: No Accompanied by: Self / Same As Patient Allergies gluten Allergy (Unknown, Verified 10/22/24 08:53) Stomach Upset Medication List - Last Reconciled 10/22/24 by Sulma Plaza MD levothyroxine 50 mcg PO DAILY olmesartan 5 mg PO DAILY Tobacco use date assessed: 10/22/24 Dental Screening Dental Screen Date: 10/22/24 Did you have a dental visit in the last 12 months?: No Did you have a dental problem in the last 6 months where you did not have access to dental care?: No Was dental information given to patient?: Patient has dentist HPI 3m follow up HPI Details - The patient is a 49-year-old female presenting for follow-up on her hypertension, lipids, and vitamin D deficiency. - Gene's thyroiditis: The patient is on a low dose of levothyroxine and reports no issues with swallowing. She is currently being followed by [facility], scheduled for thyroid function tests next year - Hypertension: The patient has been prescribed a low dose of olmesartan 5 mg daily, but often forgets to take it. Her blood pressure is currently well-controlled without medication, but she is advised to monitor it and resume medication if it consistently exceeds 130/80 mmHg, or if she experiences any frequent headaches, lightheadedness hypertriglyceridemia. - Vitamin D deficiency: The patient was previously found to have low vitamin D levels, which improved slightly with supplementation. She is advised to continue taking vitamin D supplements, especially during the winter months, and her levels will be rechecked in future blood work. - Prediabetes: The patient was previously on Mounjaro for weight management due to prediabetes, but she is no longer taking it as her blood glucose levels have improved. She is encouraged to maintain a healthy diet and exercise regimen to prevent progression to diabetes. - Hyperlipidemia: The patient had elevated triglycerides in the past, which have improved with dietary changes and exercise. She is advised to continue these lifestyle modifications to maintain her lipid levels. [facility] Medical History Essential hypertension Impaired fasting glucose Gene's thyroiditis Hypertriglyceridemia Vitamin D deficiency Allergic rhinitis History of Papanicolaou smear of cervix Hypothyroidism Surgical History Hx of colonoscopy Hx of LASIK History of section Family History Father HTN (hypertension) CVD (cardiovascular disease) Diabetes mellitus Mother Medical history non-contributory Paternal Uncle Esophageal cancer Brother No problems noted. Sister Ovarian cancer Sister No problems noted. Daughter No problems noted. Maternal Aunt Uterine cancer CVD (cardiovascular disease) Social History Housing: House Alcohol intake: current Alcohol intake frequency: holidays/special occasions only Patient Tobacco Use Status: Never used Tobacco e-Cigarette/Vaping Use: Never Used Second Hand Smoke Exposure: No service: No Current occupational status: employed Current occupation: [employer] , Right hand dominate Current occupational exposures/hazards: No Cognitive needs: No Hearing needs: No Vision needs: No Questionnaire PHQ-9 Over the last 2 weeks, how often have you been bothered by any of the following problems? 1. Little interest or pleasure in doing things: not at all 2. Feeling down, depressed, or hopeless: not at all 3. Trouble falling or staying asleep, or sleeping too much: not at all 4. Feeling tired or having little energy: not at all 5. Poor appetite or overeating: not at all 6. Feeling bad about yourself - or that you are a failure or have let yourself or your family down: not at all 7. Trouble concentrating on things, such as reading the newspaper or watching television: not at all 8. Moving or speaking so slowly that other people could have noticed. Or the opposite - being so fidgety or restless that you have been moving around a lot more than usual: not at all 9. Thoughts that you would be better off or of hurting yourself in some way: not at all Total score: 0 Depression Screening Interpretation: Negative Depression Screening Done: Yes 72196 - PHQ-9 Billing: Yes Source: Developed by Drs. Mich Borrero, Neal Weiner and colleagues, with an educational nitza from [employer]. Thrive Questionnaire Date Thrive assessed: 03/19/24 I am a: Patient What is your living situation today?: I have a steady place to live Within the past 12 months, did the food you bought not last and you didn't have the money to get more?: Never true Within the past 12 months, did you worry whether your food would run out before you got money to buy more?: Never true Do you have trouble paying for medicines?: No Do you have trouble getting transportation to medical appointments?: No Do you have trouble paying your heating and electricity bill?: No Do you have trouble taking care of your child, family member or friend?: No Do you have trouble with day-to-day activities such as bathing, preparing meals, shopping, managing finances, etc.?: No Are you currently unemployed and looking for a job?: No Are you interested in more education?: No Please select the resources that you would like help with: None Currently or been in a relationship where the following occur: No concerns reported THRIVE Score: 0 GRAY-7 AMB Questionnaire GRAY-7 Date GRAY - 7 assessed: 10/22/24 Feeling nervous, anxious, or on edge: 0 = Not at all Not being able to stop or control worryin = Not at all Worrying too much about different things: 0 = Not at all Trouble relaxin = Not at all Being so restless that it is hard to sit still: 0 = Not at all Becoming easily annoyed or irritable: 0 = Not at all Feeling afraid as if something awful might happen: 0 = Not at all Total GRAY-7 score (0-4 normal; 5-9 mild; 10-14 moderate; 15-21 severe): 0 Source: Developed by Drs. Mich Borrero, Neal Weiner and colleagues, with an educational nitza from [employer]. GRAY-7 Assessment Billing GRAY-7 Assessment Tool: GRAY-7 Assessment 27645 Review of Systems Const Denies fatigue, Denies fever(s), Denies headache(s) and Denies weakness Eyes Denies change in vision ENT Denies dizziness, Denies headache(s) and Denies nasal discharge Card Denies chest pain, Denies lightheadedness, Denies palpitations and Denies dyspnea Resp Denies chest congestion, Denies cough, Denies dyspnea and Denies wheezing GI Denies abdominal pain, Denies change in bowel habits and Denies heartburn Reports abnormal menses (Skipping months), Reports hot flashes and Reports urinary incontinence (Occasional leakage with cough) Musc Denies muscle weakness Skin/Breast Denies breast pain, Denies breast mass and Denies rash Neuro Denies dizziness, Denies headache(s) and Denies weakness Psych Reports no additional complaints Endo Denies fatigue, Denies polydipsia, Denies polyuria and Denies palpitations Hector/Lymph Reports no additional complaints Aller/Immun Denies seasonal rhinorrhea and Denies wheezing Physical exam (Primary Care) Vital Signs: Last Vital Signs Temp 98.3 F 10/22/24 08:23 Pulse 82 10/22/24 08:23 Resp 16 10/22/24 08:23 BP 122/88 10/22/24 08:23 Pulse Ox 97 10/22/24 08:23 Oxygen Delivery Method Room Air 10/22/24 08:23 BMI result Body Mass Index 29.0 Tobacco/Smoking Status: Tobacco use Status Tobacco use date assessed 10/22/24 10/22/24 08:26 Patient Tobacco Use Status Never used Tobacco 10/22/24 08:26 e-Cigarette/Vaping Use Never Used 10/22/24 08:26 PHQ-9: PHQ-9 Score PHQ-9: Total score 0 10/22/24 08:28 Depression Screening Interpretation: Negative Thrive Assessment: Date of Thrive Assessment Date Thrive assessed 03/19/24 10/22/24 08:26 Currently or been in a relationship where the following occur: No concerns reported Const General: comfortable, no acute distress and alert Orientation/consciousness: patient oriented x3 HENMT Face and sinus: Yes face symmetric Throat: Yes posterior oropharynx normal Neck Neck: Yes full ROM, Yes no lymphadenopathy and Yes supple Thyroid: diffusely enlarged Resp Effort & Inspection: normal respiratory effort and able to speak in complete sentences Auscultation: clear to auscultation bilaterally Cardio Palpation: normal PMI Rate: regular rate Rhythm: regular rhythm Heart sounds: S1 normal heart sound present and S2 normal heart sound present GI Inspection: Yes normal to inspection Palpation (GI): Soft to palpation, nontender, no guarding and no masses Auscultation: normal bowel sounds General: Yes no CVA tenderness Back/Spine/Pelvis Back: no CVA tenderness and No back tenderness Skin General skin exam: no rashes or lesions noted Neuro General: patient oriented x3, gait normal, tone normal, moves all extremities, Normal light touch and pain sensation, no focal motor deficits and CN's II-XI intact bilaterally Extrem General: Yes full ROM, Yes no joint enlargement, Yes no pedal edema, Yes no calf tenderness and Yes normal gait Coding Level of Care Code Est Pt Level 4 (64565) Complex EM visit Add On G2211 Diagnoses 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 Essential hypertension I10 Additional Codes GRAY-7 Assessment Billing - GRAY-7 Assessment Tool: GRAY-7 Assessment 33020 ([id number]) PHQ-9 - 77763 - PHQ-9 Billing: Yes ([id number]) Assessment & Plan Assessment & Plan (1) Hypothyroidism: Code(s): E03.9 - Hypothyroidism, unspecified Category: Medical Qualifiers: Hypothyroidism type: due to Gene's thyroiditis Qualified Code(s): E06.3 - Autoimmune thyroiditis (2) Essential hypertension: Code(s): I10 - Essential (primary) hypertension Category: Medical Plan Plan During the visit, we discussed the management of Gene's thyroiditis, hypertension, vitamin D deficiency, prediabetes, and hyperlipidemia. The patient was advised to continue her current medications and supplements, monitor her blood pressure, and maintain a healthy lifestyle. We also reviewed the importance of regular blood work to monitor her thyroid function and vitamin D levels. The potential risks and benefits of her current treatment plan were discussed, and she was encouraged to reach out if she experiences any changes in her symptoms or health status. Patient was informed and verbally consented to the use of an ambient scribe for clinic note documentation during this visit. 1. Autoimmune thyroiditis E06.3 The patient is advised to continue her current low dose of levothyroxine and to undergo thyroid function tests before the end of the year to monitor her condition. 2. Essential (primary) hypertension I10 The patient is advised to monitor her blood pressure regularly and resume olmesartan if her blood pressure consistently exceeds 130/80 mmHg. 3. Vitamin D Deficiency The patient should continue taking vitamin D supplements, especially during the winter months, and her levels will be rechecked in future blood work. 4. Prediabetes R73.03 The patient is encouraged to maintain a healthy diet and exercise regimen to prevent progression to diabetes. 5. Hyperlipidemia, unspecified E78.5 The patient is advised to continue dietary changes and exercise to maintain her lipid levels. Orders: Orders Vitamin D 25-OH Total 12/27/24 E06.3 - Autoimmune thyroiditis, E55.9 - Vitamin D deficiency, unspecified, E78.1 - Pure hyperglyceridemia, I10 - Essential (primary) hypertension, R73.01 - Impaired fasting glucose
[2024-10-22 08:23] VITALS: BP 122/88; PULSE 82; RESP 16; TEMP 36.8; O2SAT 97; BMI 29.0
== END 2024-10-22 10:35 | disposition home or self-care (01) ==
LOC: HO.HMCC 08:00
PROVIDERS: PCP Internal Medicine; Visit Provider Internal Medicine
DX: E06.3 Autoimmune thyroiditis (principal); I10 Essential (primary) hypertension

== ENCOUNTER → 2024-10-22 07:59 | Outpatient (BNVA) | payer OTHER, SELFPAY | PROVIDERS: PCP Internal Medicine; Visit Provider Internal Medicine | DX: I10 Essential (primary) hypertension (principal); E55.9 Vitamin D deficiency, unspecified; E06.3 Autoimmune thyroiditis; R73.03 Prediabetes; E78.1 Pure hyperglyceridemia; R73.01 Impaired fasting glucose | CPT/HCPCS: 96127 ==

== ENCOUNTER 2025-01-14 07:42 | Outpatient (REF) | payer OTHER, SELFPAY ==
[2025-01-14 11:40] LABS: Alanine Aminotransferase 22 U/L (0-31); Anion Gap 10 (12-20); Aspartate Amino Transferase 29 U/L (5-31); Blood Urea Nitrogen 14 mg/dL (9-16); Calcium 9.0 mg/dL (8.4-10.2); Carbon Dioxide 27 mmol/L (22-29); Chloride 106 mmol/L (96-108); Cholesterol 214 mg/dL (<200); Estimated Glomerular Filt Rate > 60; Free T4 (Free Thyroxine) 1.11 ng/dL (0.71-1.85); HDL Cholesterol 44 mg/dL (>40); Potassium 3.6 mmol/L (3.3-5.1); Sodium 139 mmol/L (135-145); Thyroid Stimulating Hormone 0.89 uIU/mL (0.32-4.0); Triglycerides 184 mg/dL (<150)
--- OUTSIDE RECORDS SUMMARY | 2025-01-14 15:08 | XMS_ITS | Patient Health Record ---
Author Organization [facility] [address] Address [address] [place] [address] Care Team Providers Care Supervisor Assembling Name Role Phone LIZ RACHEL Unavailable [phone] Allergies No Known Allergies Reason For Referral No Information Medications Medication SIG (Take, Route, Frequency, Duration) Notes Start Date End Date Status Ondansetron 4 MG Tablet Disintegrating 1 tablet on the tongue and allow to dissolve prn nausea/vomiting Orally twice day; Duration: 30 days 08/08/2023 Active Zepbound 5 MG/0.5ML Solution Auto-injector 5mg Subcutaneous weekly; Duration: 30 days 08/23/2023 Active Levothyroxine Sodium 50 MCG Tablet TAKE 1 TABLET BY MOUTH EVERY DAY Oral; Duration: 90 Days Active Mounjaro 5 MG/0.5ML Solution Pen-injector 5mg Subcutaneous weekly; Duration: 90 days PA Approved 10/24/2022 to 10/24/2023 Active Albuterol Sulfate HFA 108 (90 Base) MCG/ACT Aerosol Solution Inhalation; Duration: 30 Days Active Social History Tobacco Use: Social History Observation Description Date Details (start date - stop date) Never Smoker NA - NA Social History Drugs/Alcohol: Social Info Question Answer Notes Alcohol Screen (Audit-C) Did you have a drink containing alcohol in the past year? Yes How often did you have a drink containing alcohol in the past year? Monthly or less (1 point) Points 1 Interpretation Negative Drugs Have you used drugs other than those for medical reasons in the past 12 months? No Tobacco Use: Social Info Question Answer Notes Tobacco Use/Smoking Are you a nonsmoker Problems Problem Type SNOMED Code ICD Code Onset Dates Problem Status W/U Status Risk Notes Problem Obesity due to excess calories (221462247) Other obesity due to excess calories (E66.09) Active confirmed Problem Acquired hypothyroidism (463265406) Acquired hypothyroidism (E03.9) Active confirmed Problem Body mass index 30+ - obesity (599285726) Body mass index [BMI] 30.0-30.9, adult (Z68.30) Active confirmed Plan Of Treatment No Information Insurance Providers Payer Name Payer Address Payer Phone Subscriber Number Group Number Insured Name Patient Relationship to Insured Coverage Start Date Coverage End Date [facility] [address] [place] [address] [phone] [id number] Lory Doshi Self - patient is the insured 4 Medical (General) History Medical History History ICD Code thyroid disease Surgical History Surgery Date(Month/Year) section 12/31/2012
== END 2025-01-14 07:43 | disposition home or self-care (01) ==
LOC: HO.HMGCLDS 07:42
PROVIDERS: PCP Internal Medicine; Visit Provider Internal Medicine
DX: I10 Essential (primary) hypertension (principal); R73.01 Impaired fasting glucose; E06.3 Autoimmune thyroiditis; E78.1 Pure hyperglyceridemia; E55.9 Vitamin D deficiency, unspecified
CPT/HCPCS: 36415; 80048; 80061; 82306; 84439; 84443; 84450; 84460

== ENCOUNTER 2025-01-19 11:15 | Outpatient (AMB) | payer OTHER, SELFPAY ==
[2025-01-19 11:48] VITALS: BP 124/82; PULSE 80; RESP 15; TEMP 36.6; O2SAT 98; BMI 29.6
--- NOTE | 2025-01-19 11:48 | A.OFFPC_ITS ---
Vital Signs 01/19/25 11:48 Height 5 ft 3 in Weight 167 lb BMI 29.6 BP 124/82 Blood Pressure Location Lt brachial Position Sitting Respiration 15 Pulse 80 Pulse Source Pulse Oximeter Temp 97.9 F Temp Source Oral Pulse Oximetry (%) 98 Oxygen Delivery Method Room Air Intake Visit Reasons: 3 months f/up Intake Note: Pt is here today for her 3mo. f/u Cops Required: No Allergies gluten Allergy (Unknown, Verified 01/19/25 12:10) Stomach Upset Medication List - Last Reconciled 01/19/25 by Sulma Plaza MD levothyroxine 50 mcg PO DAILY Tobacco use date assessed: 01/19/25 Dental Screening Dental Screen Date: 01/19/25 Did you have a dental visit in the last 12 months?: Yes Did you have a dental problem in the last 6 months where you did not have access to dental care?: No Was dental information given to patient?: Patient has dentist [facility] Medical History Essential hypertension Impaired fasting glucose Gene's thyroiditis Hypertriglyceridemia Vitamin D deficiency Allergic rhinitis History of Papanicolaou smear of cervix Hypothyroidism Surgical History Hx of colonoscopy Hx of LASIK History of section Family History Father HTN (hypertension) CVD (cardiovascular disease) Diabetes mellitus Mother Medical history non-contributory Paternal Uncle Esophageal cancer Brother No problems noted. Sister Ovarian cancer Sister No problems noted. Daughter No problems noted. Maternal Aunt Uterine cancer CVD (cardiovascular disease) Social History Housing: House Alcohol intake: current Alcohol intake frequency: holidays/special occasions only Patient Tobacco Use Status: Never used Tobacco e-Cigarette/Vaping Use: Never Used Second Hand Smoke Exposure: No service: No Current occupational status: employed Current occupation: [employer] , Right hand dominate Current occupational exposures/hazards: No Cognitive needs: No Hearing needs: No Vision needs: No Questionnaire PHQ-9 Over the last 2 weeks, how often have you been bothered by any of the following problems? 1. Little interest or pleasure in doing things: not at all 2. Feeling down, depressed, or hopeless: not at all 3. Trouble falling or staying asleep, or sleeping too much: not at all 4. Feeling tired or having little energy: not at all 5. Poor appetite or overeating: not at all 6. Feeling bad about yourself - or that you are a failure or have let yourself or your family down: not at all 7. Trouble concentrating on things, such as reading the newspaper or watching television: not at all 8. Moving or speaking so slowly that other people could have noticed. Or the opposite - being so fidgety or restless that you have been moving around a lot more than usual: not at all 9. Thoughts that you would be better off or of hurting yourself in some way: not at all Total score: 0 Source: Developed by Drs. Mich Borrero, Mine Cool, Neal Lazar and colleagues, with an educational intza from [employer]. Thrive Questionnaire Date Thrive assessed: 03/19/24 I am a: Patient What is your living situation today?: I have a steady place to live Within the past 12 months, did the food you bought not last and you didn't have the money to get more?: Never true Within the past 12 months, did you worry whether your food would run out before you got money to buy more?: Never true Do you have trouble paying for medicines?: No Do you have trouble getting transportation to medical appointments?: No Do you have trouble paying your heating and electricity bill?: No Do you have trouble taking care of your child, family member or friend?: No Do you have trouble with day-to-day activities such as bathing, preparing meals, shopping, managing finances, etc.?: No Are you currently unemployed and looking for a job?: No Are you interested in more education?: No Please select the resources that you would like help with: None Currently or been in a relationship where the following occur: No concerns reported THRIVE Score: 0 AUDIT C Alcohol Use Questionnaire (AUDIT-C) 1. How often do you have a drink containing alcohol?: 2-4 times a month 2. How many drinks containing alcohol do you have on a typical day when you are drinking?: 1 or 2 3. How often do you have six or more drinks on one occasion?: Never Total Score: 2 GRAY-7 AMB Questionnaire GRAY-7 Date GRAY - 7 assessed: 10/22/24 Feeling nervous, anxious, or on edge: 0 = Not at all Not being able to stop or control worryin = Not at all Worrying too much about different things: 0 = Not at all Trouble relaxin = Not at all Being so restless that it is hard to sit still: 0 = Not at all Becoming easily annoyed or irritable: 0 = Not at all Feeling afraid as if something awful might happen: 0 = Not at all Total GRAY-7 score (0-4 normal; 5-9 mild; 10-14 moderate; 15-21 severe): 0 Source: Developed by Drs. Mich Borrero, Mine Cool, Neal Lazar and colleagues, with an educational nitza from [employer]. Physical exam (Primary Care) Vital Signs: Last Vital Signs Temp 97.9 F 01/19/25 11:48 Pulse 80 01/19/25 11:48 Resp 15 01/19/25 11:48 BP 124/82 01/19/25 11:48 Pulse Ox 98 01/19/25 11:48 Oxygen Delivery Method Room Air 01/19/25 11:48 BMI result Body Mass Index 29.6 Tobacco/Smoking Status: Tobacco use Status Tobacco use date assessed 01/19/25 01/19/25 11:52 Patient Tobacco Use Status Never used Tobacco 01/19/25 11:52 e-Cigarette/Vaping Use Never Used 01/19/25 11:52 PHQ-9: PHQ-9 Score PHQ-9: Total score 0 01/19/25 12:10 Thrive Assessment: Date of Thrive Assessment Date Thrive assessed 03/19/24 01/19/25 11:52 Currently or been in a relationship where the following occur: No concerns reported Office Procedures Flu Questionnaire Does the patient have a severe egg allergy?: No Does the patient have severe life threatening allergies?: No Does the patient have a fever or illness today?: No Has the patient ever had Guillain-Roann Syndrome?: No Has the patient ever had any past reaction to a flu shot?: No Results Reviewed Results Reviewed: RUN: 01/19/25 1209 PAGE 1 [facility] [address] [place] [id number] Chief Lending Officer: Tony Chan M.D. Specimen Inquiry Name: Lory Doshi Age/Sex: 49/F : 1975 Unit#: [id number] Attend Dr: Sulma Plaza MD Re01/14/25 Status: DEP REF Location: [facility] Disch: SPEC : [id number] TIAN: 01/14/25 STATUS: COMP REQ : [id number] RECD: 01/14/[address]: Sulma Plaza MD COMP: 01/14/25 ENTERED: 01/14/[address]: ORDERED: Met Prof Fast, AST, ALT, Lipid Panel, Vitamin D 25-OH, Free T4, TSH Test Result Flag Reference Sodium 139 135-145 mmol/L Potassium 3.6 3.3-5.1 mmol/L CL 106 96-108 mmol/L CO2 27 22-29 mmol/L Gap 10 L 12-20 BUN 14 9-16 mg/dL Creat 0.76 0.5-1.4 mg/dL eGFR > 60 Chronic Kidney Disease: Estimated GFR < 60 mL/min/1.73m2 Severe Kidney Disease: Estimated GFR < 15 mL/min/1.73m2 FBS 108 H 60-99 mg/dL A fasting glucose from 100-125 mg/dl is considered impa ired (pre-diabetes). CA 9.0 8.4-10.2 mg/dL AST (GOT) 29 5-31 U/L ALT (GPT) 22 0-31 U/L Triglyceride 184 H <150 mg/dL Desirable Triglyceride: less than 150 mg/dL Borderline High Triglyceride 150-199 mg/dL High Triglyceride: 200-499 mg/dL Very High Triglyceride: greater than or equal to 5OO mg/dL Cholesterol 214 H <200 mg/dL Desirable Cholesterol: less than 200 mg/dL Borderline High Cholesterol: 200-239 mg/dL High Cholesterol: greater than 239 mg/dL LDL Calculated 134 H <100 mg/dL Desirable LDL: less than 100 mg/dL Near Optimal/Above Optimal LDL: 110-129 mg/dL Borderline High LDL: 130-159 mg/dL High LDL: 160-189 mg/dL Very High LDL: greater than or equal to 190 mg/dL HDL 44 >40 mg/dL Desirable HDL: greater than 40 mg/dL Note: This HDL assay may give artificially low results in patients with liver disease. Vitamin D 25-OH 22.6 L >30 ng/mL Health Based Reference Values* < 20 ng/mL Deficient 20-30 ng/mL Insufficient > 30 ng/mL Sufficient *Walt KING. N Engl J Med. 2007;357:266-280 There is no well-established upper level of normal vitamin D levels. Some laboratories use 50 ng/mL as an upper limit of normal. However, toxicity is patient-dependent and may occur at any level. Careful correlation with the patient's presentation is necessary and, if there is concern for vitamin D toxicity, treatment should be considered irrespective of the serum level. Care must be taken in interpreting Vitamin D results from different laboratories and methodologies. Published data demonstrated that results from patients undergoing hemodialysis may show a negative bias when tested with various automated 25-OH vitamin D assays when compared to LC-MS/MS. When testing samples from patients whose predominant form of Vitamin D is Vitamin D2, such as patients receiving Vitamin D2 supplementation, results that are subtherapeutic should be confirmed with another method such as LC-MS/MS. Free T4 1.11 0.71-1.85 ng/dL TSH 3rd Gen. 0.89 0.32-4.0 uIU/mL TSH 3rd Generation ([facility]) Coding Assessment & Plan Assessment & Plan Orders: Orders Influenza [id number] Immunization Today Z23 - Encounter for immunization
== END 2025-01-19 13:14 | disposition home or self-care (01) ==
LOC: HO.HMCC 11:16
PROVIDERS: PCP Internal Medicine; Visit Provider Internal Medicine
DX: Z23 Encounter for immunization (principal)

== ENCOUNTER → 2025-01-19 11:15 | Outpatient (BNVA) | payer OTHER, SELFPAY | PROVIDERS: PCP Internal Medicine; Visit Provider Internal Medicine | DX: E78.1 Pure hyperglyceridemia (principal); E55.9 Vitamin D deficiency, unspecified; R73.01 Impaired fasting glucose; E06.3 Autoimmune thyroiditis; E78.00 Pure hypercholesterolemia, unspecified; R73.03 Prediabetes; E03.9 Hypothyroidism, unspecified; Z23 Encounter for immunization | CPT/HCPCS: 90471; 90656; 96127 ==